=== PATIENT | female | born 1950 | race Caucasian/White ===

== ENCOUNTER 2017-10-27 23:47 | Inpatient (IN) | payer MEDICARE, OTHER ==
[2017-10-28 02:09] LABS: #Eosinphils 0.1 thou/uL (0.0-0.7); #Lymphocytes 1.1 thou/uL (1.20-3.40); #Monocytes 0.9 thou/uL (0.11-0.59); #Neutrophils 7.5 thou/uL (1.40-6.50); %Basophils 0.2 % (0.0-1.0); %Eosinophils 0.7 % (0.0-10.0); %Lymphocytes 11.5 % (21.0-51.0); %Monocytes 9.8 % (0.0-10.0); %Neutrophils 77.8 % (42.0-75.0); Mean Corpuscular HGB CONC 33.9 g/dL (32.0-36.0); Mean Corpuscular Hemoglobin 33.3 pg (27.0-31.0); Mean Corpuscular Volume 98.1 fl (81.0-99.0); Mean Platelet Volume 7.6 fL (7.4-10.4); Platelet Count 174 thou/uL (130-400); RBC Distribution Width 14.1 % (11.5-14.5); Red Blood Cell (RBC) Count 2.69 mill/uL (4.20-5.40); White Blood Cell (WBC) Count 9.6 thou/uL (4.8-10.8)
[2017-10-28 02:17] LABS: PTT 31.1 SEC (22.9-36.1)
[2017-10-28 02:18] LABS: INR-International Normal Ratio 1.1; Prothrombin Time 14.1 SEC (12.0-14.7)
[2017-10-28 02:38] LABS: ALT (SGPT) 11 U/L (8-55); AST (SGOT) 8 U/L (5-34); Albumin 2.8 g/dL (3.4-4.8); Alkaline Phosphatase 150 U/L (40-150); Anion Gap 12 mmol/L (10-20); BUN (Urea Nitrogen) 33 mg/dL (9.8-20.1); Bilirubin, Total 0.5 mg/dL (0.2-1.2); Calc. Creatinine Clearance 0 mL/min (70-130); Calcium 8.4 mg/dL (7.8-10.44); Carbon Dioxide 28 mmol/L (23-31); Chloride 93 mmol/L (98-107); Estimated GFR-MDRD 12; Globulin 2.8 g/dL (2.4-3.5); Glucose 268 mg/dL (80-115); Magnesium 1.7 mg/dL (1.6-2.6); Potassium 3.4 mmol/L (3.5-5.1); Protein, Total 5.6 g/dL (6.0-8.3); Sodium 130 mmol/L (136-145)
[2017-10-28 02:49] LABS: CKMB 1.3 ng/mL (0-6.6); Troponin I 0.156 ng/mL (< 0.028)
[2017-10-28 06:35] VITALS: BMI 31.5
[2017-10-28] MEDS ORDERED: ACETAMINOPHEN WITH CODEINE PO PRN (07:05)
[2017-10-28] MEDS ORDERED: Ondansetron ODT 4 MG TAB PO PRN (07:05)
[2017-10-28] MEDS ORDERED: cloNIDine 0.1 MG TAB PO PRN (07:05)
[2017-10-28] MEDS ORDERED: Dextrose 50% Abboject 50 ML SYRINGE SLOW IVP PRN (07:05)
[2017-10-28] MEDS ORDERED: Dextrose 5% in Water 1,000 ML IV PRN (07:05)
[2017-10-28] MEDS ORDERED: Vancomycin HCl 1 GM in Sodium Chloride 0.9% 250 ML 250 ML IVPB SCH (07:05)
[2017-10-28] MEDS ORDERED: HumaLOG 300 UNITS/3 ML VIAL SC PRN (07:05)
[2017-10-28] MEDS ORDERED: Promethazine 25 MG TAB PO PRN (07:05)
[2017-10-28] MEDS ORDERED: hydrALAZINE 20 MG/ML VIAL SLOW IVP PRN (07:05)
[2017-10-28] MEDS ORDERED: [UNRECOGNIZED DRUG - OTHER] PO PRN (07:05)
[2017-10-28] MEDS ORDERED: Vancomycin HCl 1 GM in Premix Bag 1 BAG IVPB SCH (07:30)
--- NOTE | 2017-10-28 07:44 | HP ---
DATE OF ADMISSION: 10/28/2017 PRIMARY CARE PROVIDER: Babar Marin M.D. CHIEF COMPLAINT: Left leg pain. HISTORY OF PRESENT ILLNESS: This is a 67-year-old female who presents to [facility] from [facility] after complaining of persistent left lower extre mity pain, swelling, and redness to the lower leg and ace region. The patient states that she fell at her home approximately 2 weeks prior to this evaluation, seeking medical attention at [facility]. The patient apparently was evaluated and deemed safe for release back home. The patient states she has been back at home using a rolling walker with some difficulty ambulating o n the left leg due to increased pain. The patient's daughter apparently noted swelling and redness t o the ace region of the left lower extremity over the last 24-48 hours. The patient denied any spec ific documented fever, but did note unexplained chills. The patient denied any recurrent falls, but states her buttocks do feel sore after landing on them from the original fall 2 weeks prior to this e valuation. Patient underwent general evaluation with plain radiographs apparently showing evidence o f fracture of the tibia. The patient also underwent ultrasound evaluation showing no evidence for de ep venous thrombosis. The patient also was noted with some increased shortness of breath and dyspnea and referred to [facility] for IV antibiotic therapy and rule out for pulmona ry embolus with ventilation perfusion scan due to patient's end-stage renal disease on current hemodi alysis. The patient states she has been on dialysis for approximately one year, but apparently lost her AV fistula in the left upper extremity and it is now nonfunctioning. The patient underwent a sherry neled hemodialysis catheter placement approximately a week prior to this evaluation and has been atte nding dialysis in the [place] area Thursday, Thursday, and Thursday. The patient states she has been compliant with her hemodialysis. In the emergency room, patient received Tylenol with codeine and wa s referred to the Hospitalist Service for evaluation. PAST MEDICAL HISTORY: 1. End-stage renal disease with current hemodialysis Thursday, Thursday, Thursday in [place], [place]. 2. Diabetes mellitus type 2, insulin requiring with end-stage renal disease. 3. Status post fall. 4. Left tibia fracture status post fall. 5. Hypertension. 6. Rheumatoid arthritis. 7. Osteoarthritis. 8. Vasculitis. 9. Legal blindness. PAST SURGICAL HISTORY: 1. Status post appendectomy. 2. Status post cervical conization for cervical cancer. 3. Status post left upper extremity AV fistula placement. 4. Status post cardiac catheterization on 01/2017. CURRENT MEDICATIONS: 1. Tylenol #3 300/60 mg 1 tab p.o. q.6 hours p.r.n. pain. 2. Enteric-coated aspirin 81 mg 1 tab p.o. daily. 3. Lipitor 40 mg p.o. at bedtime. 4. Vitamin D2 50,000 units p.o. daily. 5. Question of Lasix 80 mg p.o. daily. 6. Hydralazine 50 mg p.o. b.i.d. 7. Glargine insulin 50 units subcutaneously q.a.m. 8. NovoLog FlexPen p.r.n. 9. Metoprolol tartrate 25 mg p.o. b.i.d. 10. Prednisone 5 mg p.o. t.i.d. ALLERGIES: 1. CANAGLIFLOZIN. 2. CARVEDILOL. 3. IODINE. 4. PENICILLIN. 5. SULFA. FAMILY HISTORY: Positive for diabetes mellitus in both parents. SOCIAL HISTORY: Patient is and resides in [place], [place]. Ambulates with use of a rolling walker. Recent fall 2 weeks prior to this evaluation. Remote history of tobacco use. No alcohol o r illicit drug use. REVIEW OF SYSTEMS: The following complete review of systems was negative, unless otherwise mentioned in the HPI or below: Constitutional: Weight loss or gain, ability to conduct usual activities. Skin: Rash, itching. Eyes: Double vision, pain. ENT/Mouth: Nose bleeding, neck stiffness, pain, tenderness. Cardiovascular: Palpitations, dyspnea on exertion, orthopnea. Respiratory: Shortness of breath, wheezing, cough, hemoptysis, fever or night sweats. Gastrointestinal: Poor appetite, abdominal pain, heartburn, nausea, vomiting, constipation, or diarr hea. Genitourinary: Urgency, frequency, dysuria, nocturia. Musculoskeletal: Pain, swelling. Neurologic/Psychiatric: Anxiety, depression. Allergy/Immunologic: Skin rash, bleeding tendency. Otherwise negative except as stated per HPI. PHYSICAL EXAMINATION: VITAL SIGNS: On admission, blood pressure 166/70, pulse 91, respiratory rate 22, temperature 98 degr ees Fahrenheit, O2 saturation 94% on room air. GENERAL APPEARANCE: This is a 67-year-old female, alert and oriented x3, pleasant, respons babita, in no acute distress. HEENT: Pupils are equal, round, reactive to light and accommodation. Extraocular muscles are intact . No scleral icterus, no conjunctival injection. Nares patent. OP is clear. NECK: Supple, no cervical adenopathy, no thyromegaly, no carotid bruits, no JVD appreciated. Cervic al spine is with full active and passive range of motion. No meningeal signs appreciated. CHEST: Lungs are clear to auscultation bilaterally. CARDIOVASCULAR: S1 and S2 with 2/6 systolic ejection murmur loudest in the right upper sternal borde r. A tunneled hemodialysis catheter in the right internal jugular vein in place. ABDOMEN: Obese, soft, nontender, nondistended. Bowel sounds are positive in all four quadrants. Th ere is no hepatosplenomegaly, no abdominal bruits, no rebound or guarding appreciated. EXTREMITIES: Warm and dry with fair turgor. Pitting edema bilaterally. Left lower extremity with i ncreased erythema, warmth to touch in the midsection of the ace with mild tenderness to palpation. Edema extends to the dorsum of the foot bilaterally, left greater than right. Dry ulcerations noted on left toes. Pulses diminished at the dorsalis pedis, posterior tibial, and popliteal arteries bila terally. Capillary refill less than 2 seconds. NEUROLOGIC: Cranial nerves II-XII are grossly intact. The patient is not observed ambulatory during this exam. PERTINENT LABORATORY DATA AND X-RAY FINDINGS: Sodium 130, potassium 3.4, chloride 93, CO2 of 28, BUN 33, creatinine 3.84, estimated GFR of 12, and glucose 268. Lactic acid level 2.1, calcium 8.4, magn esium 1.7. LFTs within normal limits. Troponin 0.156, albumin 2.8. CBC showed white blood cell cou nt 9.6, hemoglobin 9, hematocrit 26.4, platelet count 174 with 78% neutrophils. EKG dated 10/27/2017 by my interpretation shows sinus mechanism with heart rates in the 90s. Normal R-wave progression n oted in the precordial leads. Normal axis. No acute ST-T wave changes appreciated. Doppler ultraso und of the left lower extremity dated 10/28/2017 showed no evidence for DVT. Portable chest x-ray steven goode 10/28/2017 showed tunneled hemodialysis catheter in the right jugular venous system. Chronic yasmin nges noted in bilateral lung berry. No acute infiltrate identified. ASSESSMENT AND PLAN: 1. Left lower extremity acute cellulitis. The patient will be admitted to the medical floor. We wi ll initiate vancomycin 1 gram x1 dose now with additional Rocephin 2 grams IV q.24 hours. We will co ntinue serial monitoring of left lower extremity. Doppler ultrasound ruled out evidence for deep koki ous thrombosis. 2. Left tibia fracture. We will need to obtain radiographs to confirm the diagnosis. May repeat lo andria films for review. Consult Ortho Service for evaluation. 3. End-stage renal disease with hemodialysis. We will consult Nephrology Service for evaluation and continuation of maintenance hemodialysis during the hospital stay. No current evidence to suggest a cute volume overload with clinical decompensation. Current maintenance hemodialysis Thursday, , and Thursday. 4. Hyponatremia secondary to hyperglycemia. We will continue serial monitoring. Initiate home insu tiara regimen. 5. Hypokalemia. We will continue to monitor clinically. Hold potassium supplementation. 6. Chronic normocytic anemia secondary to chronic kidney disease. Stable currently. We will contin ue to monitor serial hemoglobin trend. No current evidence to suggest acute blood loss. 7. Hypertension. Resume home antihypertensive regimen and monitor clinical response. 8. Diabetes mellitus type 2, insulin requiring. Resume glargine insulin 50 units subcutaneously q.a .m. Insulin sliding scale for reflexive coverage. ADA diet. 9. Status post mechanical fall. Obtain PT/OT evaluation for functional assessment. General fall ri sk precautions. 10. Prophylaxis. Sequential compression devices will be held due to lower extremity edema. Heparin 5000 units subcutaneously t.i.d. for deep venous thrombosis prophylaxis. Pepcid 20 mg p.o. b.i.d. General fall risk precautions. 11. Code status is FULL. Surrogate medical decision maker is patient's spouse.
[2017-10-28] MEDS: Acetaminophen/Codeine 30-300mg Tablet PO PRN ×2 (08:39→18:18)
[2017-10-28] MEDS: Famotidine 20 MG TAB PO SCH ×2 (08:59→20:31)
[2017-10-28] MEDS: Insulin Detemir 100 UNITS/ML 50 UNITS in Pre-Filled Syringe 1 EACH SC SCH (08:59)
[2017-10-28] MEDS: predniSONE 5 MG TAB PO SCH ×2 (08:59→12:39)
[2017-10-28] MEDS: Aspirin 81 mg Enteric Coated Tablet PO SCH (08:59)
[2017-10-28] MEDS: hydrALAZINE 25 MG TAB PO SCH ×2 (08:59→20:30)
[2017-10-28] MEDS ORDERED: Non-Formulary Item 1 EACH (Hydralazine Hcl [Apresoline] 50 MG) PO SCH (09:00)
[2017-10-28] MEDS: Heparin 5,000 UNITS/ML VIAL SC SCH ×3 (09:00→20:30)
[2017-10-28] MEDS ORDERED: Non-Formulary Item 1 EACH (Insulin Glargine,Hum.Rec.Anlog 50 UNIT) SQ SCH (09:00)
--- NOTE | 2017-10-28 09:11 | ULT ---
PRELIMINARY REPORT/[facility]/EMERGENCY AFTER HOURS PROCEDURE: EXAM: US Duplex Left Lower Extremity Veins EXAM DATE/TIME: Exam ordered 10/28/2017 1:11 AM CLINICAL HISTORY: 67 years old, female; Pain and signs and symptoms; Edema, localized and other: Left leg below knee re dness; Lower extremity, left; Leg, lower; Patient HX: Recent fall TECHNIQUE: Real-time ultrasound scan of the veins of the left lower extremity with color Doppler flow, spectral waveform analysis and compression. COMPARISON: No relevant prior studies available. FINDINGS: Deep veins: Unremarkable. No DVT in the visualized common femoral, femoral, proximal deep femoral or popliteal veins. The veins demonstrate normal color flow, are normally compressible, with normal phas ic flow and/or augmentation response. Superficial veins: Unremarkable. No thrombus in the visualized great saphenous vein. Soft tissues: Superficial soft tissue edema. No popliteal cyst. IMPRESSION: No DVT Thank you for allowing us to participate in the care of your patient. Dictated and Authenticated by: Horace Lopez MD 10/28/2017 1:45 AM Central Time ([place] & [place]) FINAL REPORT LEFT LOWER EXTREMITY VENOUS DUPLEX EXAM: HISTORY: Leg swelling. FINDINGS: Real-time color Doppler evaluation left lower extremity is performed from groin to calf. This includ es evaluation of the common femoral, superficial and profunda femoral, saphenous, popliteal, and trif urcation veins. This shows patent deep venous systems with normal compressibility and augmentation. Of incidental note is diffuse edema change in the calf region. IMPRESSION: 1. No evidence of deep vein thrombosis. 2. This report is in agreement with the temporary report issued by [facility]. POS: OFF
--- NOTE | 2017-10-28 09:16 | RAD ---
CHEST ONE VIEW: History: Pain. Comparison: 11-11-15 FINDINGS: New from the comparison examination is a dialysis catheter tip at the inferior SVC. There are patchy opacities in the lingula as well as left lower lobe. Blunting of the left lateral costophrenic sulcus . Mild interstitial edema, pulmonary venous congestion. IMPRESSION: 1. New dialysis catheter tip in good position. 2. Linear and right lower lobe airspace opacity as well as left lower lobe linear airspace opacity ma y reflect atelectasis. 3. Mild volume overload. 4. Small left effusion versus scarring. POS: H
[2017-10-28 09:27] LABS: HBSAB Concentration 0.29 mIU/mL; HBSAg Index 0.13 S/CO (0-0.99); Hep B Core Total Ab Non-Reactive (NonReactive); Hep B Surf AB Non-Reactive (NonReactive); Hep B Surf Ag Non-Reactive S/CO (NonReactive); Hep C IgG Ab Non-Reactive (NonReactive); Hep C Index 0.34 S/CO (0-0.79)
--- NOTE | 2017-10-28 09:52 | RAD ---
TWO VIEW LEFT LEG SERIES: Clinical history: Fall with pain. FINDINGS: There is a mildly displaced obliquely oriented fracture of the distal fibula. Imaged tibia reveals no displaced fracture. There are areas of vascular calcification. Incidental osteoarthritis seen at the knee and ankle joints. IMPRESSION: Mildly displaced distal fibular fracture. Consider dedicated views of the left ankle for further eval uation. POS: [facility]
--- NOTE | 2017-10-28 10:48 | CON ---
DATE OF CONSULTATION: 10/28/2017 REQUESTING PHYSICIAN: Dr. Karlos Waldron. CONSULTING PHYSICIAN: Dr. Rayo Sotelo. REASON FOR CONSULTATION: Left distal fibular Meyers C type fracture. BRIEF CLINICAL HISTORY: Ramila is a 67-year-old white female who was admitted to the Medicine Servic e yesterday for swelling, pain, and left lower extremity with accompanying comorbidities of end-stage renal disease requiring hemodialysis, diabetes type 2, rheumatoid arthritis, osteoarthritis, and vas culitis. Apparently, she fell 12-14 days ago while using her rolling walker and landed on her left leg. She w as seen at [facility]. At that time, evaluated in the emergency room and rele ased to home. She has been receiving her hemodialysis as an outpatient. Plain radiographs obtained by the Medicine Service demonstrated a minimally displaced oblique Meyers C fracture of the left dista l fibula with degenerative changes of the knee consistent with degenerative genu valgum. The patient has been able to stand, walk and bear weight on the leg and current radiographs do not demonstrate s ignificant displacement. She also has a hematoma at the mid tibia. There has been some redness and swelling noted around this and she was started on Rocephin empirically and our service was consulted for evaluation of the swelling, redness and incidental fibular fracture noted on radiographs. PHYSICAL EXAMINATION: Visual inspection of left lower extremity demonstrates patient to be morbidly obese. She also has some skin changes in the mid ace anterior consistent with hematoma. Some bruis ing and ecchymotic changes peripheral to this, but no significant blanchable erythema is noted. Skin changes chronically on the foot consistent with diabetes and hemodialysis history, some atrophic yasmin nges of the skin also appreciated. She has a little bit of fibular tenderness with point palpation. Lateral ankle range of motion is not assessed due to known underlying fracture. Otherwise, she is n eurovascularly intact with good full digital excursion and sensation in the involved extremity. No s ignificant breaks in skin are appreciated in or around the fracture site. IMAGING STUDIES: Two-view left leg (tib-fib) demonstrates an oblique Meyers C fracture of the distal fibula, chronic changes of the knee consistent with genu valgum were also appreciated on AP view. IMPRESSION: 1. Left distal fibular Meyers C minimally to nondisplaced fracture. 2. Degenerative genu valgum, left knee. 3. Left mid ace hematoma, low suspicion for cellulitis. 4. Chronic comorbidities to include diabetes type 2, hemodialysis, hypertension, peripheral vascular disease, rheumatoid arthritis, and vasculitis. PLAN: 1. Nonoperative management recommended for the fibula. 2. Directed films will be obtained today. 3. The patient will be fitted with a 3D walking boot for skin checks and also immobilization of the ankle. 4. She has been ambulating on the leg, but best recommendation would be nonweightbearing as possible . We will consult physical therapy for walker training in a touchdown weightbearing fashion if possi ble. We will reevaluate the patient tomorrow with again directed films after ambulating.
[2017-10-28] MEDS: cefTRIAXone\\ROCEPHIN 2 GM, Admixture Fee 1 EACH in Sodium Chloride 0.9% 100 ML IVPB SCH (11:12)
--- NOTE | 2017-10-28 11:12 | RAD ---
THREE VIEWS LEFT ANKLE: Date: 10-28-17 Comparison: Prior tibia/fibula on 10-28-17. History: Distal fibular fracture. FINDINGS: There is an obliquely oriented distal left fibular fracture. There is no significant displacement. Th ere is no additional fracture or evidence of dislocation. Talar dome appears intact. There is extensive atherosclerotic calcification overlying the imaged ankle and foot. There is calcan eal enthesophyte formation. IMPRESSION: Obliquely oriented distal left fibular fracture with no additional fracture or evidence of dislocatio n. POS: [facility]
--- NOTE | 2017-10-28 12:20 | PDOC.PN ---
- Subjective Encounter Start Date: 10/28/17 Encounter Start Time: 11:00 Subjective: no sob, feels better -: no chest pain or palp - Objective Resuscitation Status: Resuscitation Status FULL:Full Resuscitation MAR Reviewed: Yes Vital Signs & Weight: Vital Signs (12 hours) Temp Pulse Resp BP BP Pulse Ox 10/28/17 08:59 95 179/78 H 10/28/17 08:00 98.7 F 95 20 179/78 H 97 Weight Admit Weight 207 lb 3 oz Weight 207 lb 3 oz Result Diagrams: 10/28/17 02:01 10/28/17 02:01 Phys Exam - Physical Examination HEENT: PERRLA, moist MMs Neck: no JVD, supple Respiratory: no wheezing, no rales Cardiovascular: RRR, no significant murmur Gastrointestinal: soft, non-tender, positive bowel sounds Musculoskeletal: pulses present, edema present left LE erythema and edema++ Neurological: non-focal, moves all 4 limbs Psychiatric: A&O x 3 Dx/Plan (1) Left leg cellulitis Code(s): L03.116 - CELLULITIS OF LEFT LOWER LIMB Status: Acute (2) Fracture, fibula Code(s): S82.409A - UNSP FRACTURE OF SHAFT OF UNSP FIBULA, INIT FOR CLOS FX Status: Acute Qualifiers: Encounter type: subsequent encounter Fibula location: distal Fracture type: closed Laterality: left (3) CAD (coronary artery disease) Code(s): I25.10 - ATHSCL HEART DISEASE OF [place] CORONARY ARTERY W/O ANG PCTRS Status: Chronic Qualifiers: Coronary Disease-Associated Artery/Lesion type: [place] artery [place] vs. transplanted heart: [place] heart Associated angina: without angina Qualified Code(s): I25.10 - Atherosclerotic heart disease of [place] coronary artery without angina pectoris Comment: Medical mgmt, added Statin (4) DM type 2 (diabetes mellitus, type 2) Status: Chronic Qualifiers: Diabetes mellitus complication status: with unspecified complications Diabetes mellitus half-way insulin use: with half-way use Qualified Code(s) : E11.8 - Type 2 diabetes mellitus with unspecified complications; Z79.4 - long term care administrator (current) use of insulin; Z79.4 - custodial (current) use of insulin; Z79.4 - long term care administrator (current) use of insulin; Z79.4 - long term care administrator (current) use of insulin Comment: Resume home Lantus, RENZO (5) ESRD (end stage renal disease) on dialysis Code(s): N18.6 - END STAGE RENAL DISEASE; Z99.2 - DEPENDENCE ON RENAL DIALYSIS Status: Chronic Comment: HD per Renal service (6) H/O rheumatoid arthritis Code(s): Z87.39 - PERSONAL HISTORY OF DISEASES OF THE MS SYS AND CONN TISS Status: Chronic (7) HTN (hypertension) Code(s): I10 - ESSENTIAL (PRIMARY) HYPERTENSION Status: Chronic Qualifiers: Hypertension type: essential hypertension (8) Dyslipidemia Code(s): E78.5 - HYPERLIPIDEMIA, UNSPECIFIED Status: Chronic (9) Obesity (BMI 30.0-34.9) Code(s): E66.9 - OBESITY, UNSPECIFIED Status: Chronic - Plan is on vanc and ceftriaxone -: to wear russel hose to Left LE -: reduce prednisone to daily regimen, will need steroid sparing meds -: dc v/q scan, LE venous doppler is -ve -: for HD today, PT to mobilize pt as tolerated, wtg bearing per ortho advice * . Review of Systems - Medications/Allergies Allergies/Adverse Reactions: Allergies Allergy/AdvReac Type Severity Reaction Status Date / Time canagliflozin [From Invokana] Allergy Verified 10/28/17 06:42 carvedilol Allergy Verified 10/28/17 06:42 Iodine and Iodide Containing Allergy Verified 10/28/17 06:42 Produc Penicillins Allergy Verified 10/28/17 06:42 Sulfa (Sulfonamide Allergy Verified 10/28/17 06:42 Antibiotics) Medications: Current Medications Acetaminophen (Tylenol) 1,000 mg PO Q6H PRN PRN Reason: Headache/Fever or Mild Pain Acetaminophen/Codeine Phosphate (Tylenol #3) 1 tab PO Q6H PRN PRN Reason: Pain Last Admin: 10/28/17 08:39 Dose: 1 tab Aspirin (Ecotrin) 81 mg PO DAILY COUNTS INCLUDE 234 BEDS AT THE [facility] Last Admin: 10/28/17 08:59 Dose: 81 mg Clonidine (Catapres) 0.1 mg PO Q4H PRN PRN Reason: Systolic BP > 180 Dextrose/Water (Dextrose 50%) 25 gm SLOW IVP PRN PRN PRN Reason: Hypoglycemia Famotidine (Pepcid) 20 mg PO BID COUNTS INCLUDE 234 BEDS AT THE [facility] Last Admin: 10/28/17 08:59 Dose: 20 mg Glucagon (Glucagon) 1 mg IM PRN PRN PRN Reason: Hypoglycemia Heparin Sodium (Porcine) (Heparin) 5,000 units SC TID COUNTS INCLUDE 234 BEDS AT THE [facility] Last Admin: 10/28/17 09:00 Dose: 5,000 units Hydralazine HCl (Apresoline) 10 mg SLOW IVP Q4H PRN PRN Reason: Systolic BP > 180 Hydralazine HCl (Apresoline) 50 mg PO BID COUNTS INCLUDE 234 BEDS AT THE [facility] Last Admin: 10/28/17 08:59 Dose: 50 mg Ceftriaxone Sodium 2 gm/Miscellaneous Medication 1 each/ Sodium Chloride 100 mls @ 200 mls/hr IVPB Q24HR COUNTS INCLUDE 234 BEDS AT THE [facility] Last Admin: 10/28/17 11:12 Dose: 100 mls Dextrose/Water (D5w) 1,000 mls @ 0 mls/hr IV .Q0M PRN; As Directed PRN Reason: Hypoglycemia Insulin Detemir 50 units/ (Miscellaneous Medication) 0.5 mls @ 0 mls/hr SC QAM COUNTS INCLUDE 234 BEDS AT THE [facility] Last Admin: 10/28/17 08:59 Dose: 0.5 mls Insulin Human Lispro (Humalog) 0 units SC .MODERATE SLIDING SC PRN PRN Reason: Moderate Correctional Scale Insulin Human Lispro (Humalog) 0 units SC .BEDTIME SLIDING SC PRN PRN Reason: Bedtime Correctional Scale Ondansetron HCl (Zofran Odt) 4 mg PO Q6H PRN PRN Reason: Nausea/Vomiting Ondansetron HCl (Zofran) 4 mg IVP Q6H PRN PRN Reason: Nausea/Vomiting Prednisone (Prednisone) 5 mg PO TID-[facility] Last Admin: 10/28/17 08:59 Dose: 5 mg Promethazine HCl (Phenergan) 25 mg PO Q6H PRN PRN Reason: Nausea Sodium Chloride (Flush - Normal Saline) 10 ml IVF Q12HR COUNTS INCLUDE 234 BEDS AT THE [facility] Last Admin: 10/28/17 09:04 Dose: 10 ml Sodium Chloride (Flush - Normal Saline) 10 ml IVF PRN PRN PRN Reason: Saline Flush
--- NOTE | 2017-10-28 19:00 | CON ---
DATE OF CONSULTATION: 10/28/2017 CONSULTING PHYSICIAN: Dr. Mosquera. REQUESTING PHYSICIAN: Dr. Waldron. REASON FOR CONSULTATION: The need for maintenance hemodialysis. IMPRESSION: 1. End-stage renal disease, hemodialysis dependent, Thursday, Thursday and Thursday schedule. 2. Left lower extremity cellulitis. 3. Hyponatremia with hypokalemia. PLAN: 1. The patient to be dialyzed in accordance with her schedule today with ultrafiltration as tolerate d by hemodynamics. 2. Vancomycin dosing to be coordinated with dialysis, so that the patient will be receiving vancomyc in at dialysis. 3. Further management to be dependent on the clinical course. HISTORY OF PRESENT ILLNESS: History is that of a 67-year-old female patient who presented here with evidence of left lower extremity cellulitis. The patient does have end-stage renal disease. She is hemodialysis dependent on a Thursday, Thursday and Thursday schedule. The need for continued hemodialys is necessitated this consultation. PAST MEDICAL HISTORY: Significant for; 1. End-stage renal disease, hemodialysis dependent 2. Type 2 diabetes. 3. Status post fall. 4. Hypertension. 5. Rheumatoid arthritis. 6. Osteoarthritis. 7. Vasculitis. MEDICATIONS: Reviewed as documented on [employer]. ALLERGIES: To CANAGLIFLOZIN, CARVEDILOL, IODINE, PENICILLIN and SULFA. FAMILY HISTORY: Significant for diabetes. SOCIAL HISTORY: The patient resides in [place]. Remote history of tobacco use. Denies alcohol or illicit drug use. REVIEW OF SYSTEMS: As documented in the body of the history. All the other systems were reviewed an d found not to be significantly related to presenting illness. PHYSICAL EXAMINATION: GENERAL: The patient was noted to be afebrile with a temperature of 99.8, pulse 95, respiratory rate of 16 and O2 sat 97% with a blood pressure of 150/70. HEENT: Unremarkable. Moist oral mucosa. NECK: Supple. No conjunctival injection or icterus. CARDIOVASCULAR SYSTEM: First and second heart sounds were heard. RESPIRATORY SYSTEM: Clear to auscultation. DIGESTIVE SYSTEM: Revealed a benign abdomen. Positive bowel sounds. EXTREMITIES: No peripheral edema. SKIN: No new gross rash. LYMPHATICS: No peripheral lymphadenopathy. SUMMARY: A 67-year-old female patient with end-stage renal disease, hemodialysis dependent, who pres ented here with left lower extremity cellulitis. Thank you for this consultation. We will follow with you.
[2017-10-29] MEDS: Acetaminophen 500 MG TAB PO PRN (05:00)
[2017-10-29 05:03] LABS: Band 3 % (5-11); Eosinophils 1 % (0-10); Hemoglobin 8.7 g/dL (12.0-16.0); Lymphocytes 13 % (21-51); MDiff Complete? YES; Mean Corpuscular HGB CONC 32.6 g/dL (32.0-36.0); Mean Corpuscular Hemoglobin 32.4 pg (27.0-31.0); Mean Corpuscular Volume 99.3 fl (81.0-99.0); Mean Platelet Volume 7.8 fL (7.4-10.4); Monocytes 5 % (0-10); Neutrophil 78 % (42-75); Platelet Count 177 thou/uL (130-400); Red Blood Cell (RBC) Count 2.68 mill/uL (4.20-5.40); White Blood Cell (WBC) Count 7.9 thou/uL (4.8-10.8)
[2017-10-29 05:10] LABS: Anion Gap 11 mmol/L (10-20); BUN (Urea Nitrogen) 19 mg/dL (9.8-20.1); Calc. Creatinine Clearance 29 mL/min (70-130); Calcium 7.9 mg/dL (7.8-10.44); Carbon Dioxide 28 mmol/L (23-31); Chloride 100 mmol/L (98-107); Estimated GFR-MDRD 17; Glucose 130 mg/dL (80-115); Potassium 3.8 mmol/L (3.5-5.1); Sodium 135 mmol/L (136-145)
[2017-10-29] MEDS ORDERED: Ketorolac Tromethamine 30 MG/ML VIAL IVP SCH (06:45)
[2017-10-29] MEDS ORDERED: Vancomycin HCl 1 GM in Premix Bag 1 BAG IVPB SCH (09:00)
[2017-10-29] MEDS ORDERED: Vancomycin HCl 1.25 GM in Sodium Chloride 0.9% 250 ML 250 ML IVPB SCH (09:00)
[2017-10-29] MEDS ORDERED: Vancomycin HCl 750 MG in Sodium Chloride 0.9% 250 ML 250 ML IVPB SCH (09:00)
[2017-10-29] MEDS ORDERED: Vancomycin HCl 500 MG in Sodium Chloride 0.9% 100 ML IVPB SCH ×2 (09:00)
[2017-10-29] MEDS ORDERED: HOLD VANCOMYCIN FOR LEVEL >20 FS SCH (09:00)
[2017-10-29] MEDS: cefTRIAXone\\ROCEPHIN 2 GM, Admixture Fee 1 EACH in Sodium Chloride 0.9% 100 ML IVPB SCH (09:03)
[2017-10-29] MEDS: predniSONE 20 MG TAB PO SCH (09:03)
[2017-10-29] MEDS: Aspirin 81 mg Enteric Coated Tablet PO SCH (09:04)
[2017-10-29] MEDS: hydrALAZINE 25 MG TAB PO SCH ×2 (09:04→20:17)
[2017-10-29] MEDS: Heparin 5,000 UNITS/ML VIAL SC SCH ×3 (09:05→20:19)
[2017-10-29] MEDS: Famotidine 20 MG TAB PO SCH ×2 (09:05→20:18)
[2017-10-29] MEDS: Insulin Detemir 100 UNITS/ML 50 UNITS in Pre-Filled Syringe 1 EACH SC SCH (09:28)
[2017-10-29] MEDS: Acetaminophen/Codeine 30-300mg Tablet PO PRN ×2 (12:08→22:47)
--- NOTE | 2017-10-29 14:30 | PDOC.PN ---
- Subjective Encounter Start Date: 10/29/17 Encounter Start Time: 08:25 Subjective: feels better -: has not amb yet - Objective Resuscitation Status: Resuscitation Status FULL:Full Resuscitation MAR Reviewed: Yes Vital Signs & Weight: Vital Signs (12 hours) Temp Pulse Resp BP BP Pulse Ox 10/29/17 09:04 93 115/56 L 10/29/17 08:00 98.6 F 93 22 H 10/29/17 07:31 98.6 F 93 22 H 115/56 L 95 10/29/17 06:54 99.9 F H 112 H 10/29/17 06:50 100.0 F H 120 H 148/70 H 10/29/17 06:15 101.1 F H 109 H 18 156/75 H 92 L 10/29/17 06:00 100.0 F H 118 H 16 148/72 H 93 L Weight Admit Weight 207 lb 3 oz Weight 207 lb 3 oz I&O: 10/28/17 10/29/17 10/30/17 06:59 06:59 06:59 Intake Total 200 Balance 200 Result Diagrams: 10/29/17 04:29 10/29/17 04:29 Additional Labs: Accuchecks 10/29/17 10/29/17 10/28/17 11:20 04:33 21:43 POC Glucose 157 H 142 H 218 H 10/28/17 18:16 POC Glucose 169 H Phys Exam - Physical Examination HEENT: PERRLA, moist MMs Neck: no JVD, supple Respiratory: no wheezing, no rales Cardiovascular: RRR, no significant murmur Gastrointestinal: soft, non-tender, positive bowel sounds Musculoskeletal: pulses present, edema present erythema is receding left leg Neurological: non-focal, moves all 4 limbs Psychiatric: A&O x 3 Dx/Plan (1) Left leg cellulitis Code(s): L03.116 - CELLULITIS OF LEFT LOWER LIMB Status: Acute (2) Fracture, fibula Code(s): S82.409A - UNSP FRACTURE OF SHAFT OF UNSP FIBULA, INIT FOR CLOS FX Status: Acute Qualifiers: Encounter type: subsequent encounter Fibula location: distal Fracture type: closed Laterality: left (3) CAD (coronary artery disease) Code(s): I25.10 - ATHSCL HEART DISEASE OF [place] CORONARY ARTERY W/O ANG PCTRS Status: Chronic Qualifiers: Coronary Disease-Associated Artery/Lesion type: [place] artery [place] vs. transplanted heart: [place] heart Associated angina: without angina Qualified Code(s): I25.10 - Atherosclerotic heart disease of [place] coronary artery without angina pectoris (4) DM type 2 (diabetes mellitus, type 2) Status: Chronic Qualifiers: Diabetes mellitus complication status: with unspecified complications Diabetes mellitus termite control servicer insulin use: with termite control servicer use Qualified Code(s) : E11.8 - Type 2 diabetes mellitus with unspecified complications; Z79.4 - parts counterman (current) use of insulin; Z79.4 - custodial (current) use of insulin; Z79.4 - parts counterman (current) use of insulin; Z79.4 - parts counterman (current) use of insulin Comment: Resume home RENZO Gill (5) ESRD (end stage renal disease) on dialysis Code(s): N18.6 - END STAGE RENAL DISEASE; Z99.2 - DEPENDENCE ON RENAL DIALYSIS Status: Chronic Comment: HD per Renal service (6) H/O rheumatoid arthritis Code(s): Z87.39 - PERSONAL HISTORY OF DISEASES OF THE MS SYS AND CONN TISS Status: Chronic (7) HTN (hypertension) Code(s): I10 - ESSENTIAL (PRIMARY) HYPERTENSION Status: Chronic Qualifiers: Hypertension type: essential hypertension (8) Dyslipidemia Code(s): E78.5 - HYPERLIPIDEMIA, UNSPECIFIED Status: Chronic (9) Obesity (BMI 30.0-34.9) Code(s): E66.9 - OBESITY, UNSPECIFIED Status: Chronic - Plan is on ceftriaxone and vanc -: tmax of 101 -: watch for h/h its 04/25 this am -: HD per nephro advice -: mobilize per russel curry * . Review of Systems - Medications/Allergies Allergies/Adverse Reactions: Allergies Allergy/AdvReac Type Severity Reaction Status Date / Time canagliflozin [From Invokana] Allergy Verified 10/28/17 06:42 carvedilol Allergy Verified 10/28/17 06:42 Iodine and Iodide Containing Allergy Verified 10/28/17 06:42 Produc Penicillins Allergy Verified 10/28/17 06:42 Sulfa (Sulfonamide Allergy Verified 10/28/17 06:42 Antibiotics) Medications: Current Medications Acetaminophen (Tylenol) 1,000 mg PO Q6H PRN PRN Reason: Headache/Fever or Mild Pain Last Admin: 10/29/17 05:00 Dose: 1,000 mg Acetaminophen/Codeine Phosphate (Tylenol #3) 1 tab PO Q6H PRN PRN Reason: Pain Last Admin: 10/29/17 12:08 Dose: 1 tab Aspirin (Ecotrin) 81 mg PO DAILY [facility] Last Admin: 10/29/17 09:04 Dose: 81 mg Clonidine (Catapres) 0.1 mg PO Q4H PRN PRN Reason: Systolic BP > 180 Dextrose/Water (Dextrose 50%) 25 gm SLOW IVP PRN PRN PRN Reason: Hypoglycemia Famotidine (Pepcid) 20 mg PO BID [facility] Last Admin: 10/29/17 09:05 Dose: 20 mg Glucagon (Glucagon) 1 mg IM PRN PRN PRN Reason: Hypoglycemia Heparin Sodium (Porcine) (Heparin) 5,000 units SC TID [facility] Last Admin: 10/29/17 09:05 Dose: 5,000 units Hydralazine HCl (Apresoline) 10 mg SLOW IVP Q4H PRN PRN Reason: Systolic BP > 180 Hydralazine HCl (Apresoline) 50 mg PO BID [facility] Last Admin: 10/29/17 09:04 Dose: 50 mg Ceftriaxone Sodium 2 gm/Miscellaneous Medication 1 each/ Sodium Chloride 100 mls @ 200 mls/hr IVPB Q24HR [facility] Last Admin: 10/29/17 09:03 Dose: 100 mls Dextrose/Water (D5w) 1,000 mls @ 0 mls/hr IV .Q0M PRN; As Directed PRN Reason: Hypoglycemia Insulin Detemir 50 units/ (Miscellaneous Medication) 0.5 mls @ 0 mls/hr SC QAM [facility] Last Admin: 10/29/17 09:28 Dose: 0.5 mls Vancomycin HCl 1.25 gm/ Sodium (Chloride) 250 mls @ 166.667 mls/hr IVPB WILLCALL [facility] Vancomycin HCl 1 gm/ Device 200 mls @ 200 [facility]ls[facility] Vancom[facility] HCl 750 mg/ Sodium (Chloride) 250 mls @ 250 mls/hr [facility] Vancomycin HCl 500 mg/ Sodium (Chloride) 100 mls @ 100 mls/hr [facility] Insulin Human Lispro (Humalog) 0 units SC .MODERATE SLIDING SC PRN PRN Reason: Moderate Correctional Scale Insulin Human Lispro (Humalog) 0 units SC .BEDTIME SLIDING SC PRN PRN Reason: Bedtime Correctional Scale Miscellaneous Medication (Pharmacy To Dose) 1 each IVPB PRN PRN PRN Reason: Pharmacy to dose Hold Vancomycin For (Level >20) 0 each FS .AT DIALYSIS [facility] Ondansetron HCl (Zofran Odt) 4 mg PO Q6H PRN PRN Reason: Nausea/Vomiting Ondansetron HCl (Zofran) 4 mg IVP Q6H PRN PRN Reason: Nausea/Vomiting Prednisone (Prednisone) 10 mg PO QAM[facility] Last Admin: 10/29/17 09:03 Dose: 10 mg Promethazine HCl (Phenergan) 25 mg PO Q6H PRN PRN Reason: Nausea Sodium Chloride (Flush - Normal Saline) 10 ml IVF Q12HR [facility] Last Admin: 10/29/17 09:05 Dose: 10 ml Sodium Chloride (Flush - Normal Saline) 10 ml IVF PRN PRN PRN Reason: Saline Flush
[2017-10-29] MEDS: HumaLOG 300 UNITS/3 ML VIAL SC PRN (16:54)
--- NOTE | 2017-10-29 22:29 | PRG ---
DATE OF SERVICE: 10/29/2017 SUBJECTIVE: The patient was seen and examined with no new complaint and noted with the following vit al signs. PHYSICAL EXAMINATION: VITAL SIGNS: Afebrile with temperature 97.9, pulse 81, respiratory rate of 18, O2 sat of 94% with bl ood pressure 170/79. HEENT: Unremarkable with moist oral mucosa. Neck was supple. No conjunctival injection or icterus. CARDIOVASCULAR SYSTEM: First and second heart sounds were heard. RESPIRATORY SYSTEM: Clear to auscultation. DIGESTIVE SYSTEM: Revealed a benign abdomen with positive bowel sounds. EXTREMITIES: No peripheral edema. SKIN: No new gross rash. LYMPHATICS: No peripheral lymphadenopathy. LABORATORY INVESTIGATION: Showed hemoglobin of 8.7. Chemistry unremarkable except creatinine of 2.7 9. IMPRESSION: 1. End-stage renal disease, on hemodialysis. 2. Anemia, likely anemia of chronic kidney disease. PLAN: 1. The patient to continue with current regimen of hemodialysis. 2. The patient to be initiated on erythropoiesis stimulating agent. 3. Further management to be dependent on the clinical course.
[2017-10-30] MEDS: Ondansetron HCl/PF 4 MG/2 ML Vial IVP PRN ×2 (02:14→07:34)
[2017-10-30] MEDS: NIFEdipine XL 30 MG TAB PO SCH (08:59)
[2017-10-30] MEDS: Famotidine 20 MG TAB PO SCH ×2 (09:00→20:06)
[2017-10-30] MEDS: Metoprolol Tartrate 25 MG TAB PO SCH ×2 (09:00→20:06)
[2017-10-30] MEDS: predniSONE 20 MG TAB PO SCH (09:00)
[2017-10-30] MEDS: hydrALAZINE 25 MG TAB PO SCH ×2 (09:00→20:07)
[2017-10-30] MEDS: Aspirin 81 mg Enteric Coated Tablet PO SCH (09:00)
[2017-10-30] MEDS: Insulin Detemir 100 UNITS/ML 50 UNITS in Pre-Filled Syringe 1 EACH SC SCH (09:01)
[2017-10-30] MEDS: Heparin 5,000 UNITS/ML VIAL SC SCH ×3 (09:01→20:09)
[2017-10-30] MEDS: cefTRIAXone\\ROCEPHIN 2 GM, Admixture Fee 1 EACH in Sodium Chloride 0.9% 100 ML IVPB SCH (09:20)
[2017-10-30] MEDS ORDERED: Heparin 1,000 UNITS/ML VIAL ONE (11:11)
[2017-10-30] MEDS: Epoetin (ESRD) 20,000 UNITS/ML IVP SCH (12:58)
--- NOTE | 2017-10-30 13:53 | PDOC.PN ---
- Subjective Encounter Start Date: 10/30/17 Encounter Start Time: 11:00 Subjective: c/o left ace area pain -: no sob, overall feels better - Objective Resuscitation Status: Resuscitation Status FULL:Full Resuscitation MAR Reviewed: Yes Vital Signs & Weight: Vital Signs (12 hours) Temp Pulse Resp BP BP Pulse Ox 10/30/17 12:00 97.8 F 80 20 146/61 H 96 10/30/17 09:00 76 174/77 H 10/30/17 08:59 76 174/77 H 10/30/17 07:45 98.0 F 76 18 10/30/17 07:35 98.0 F 76 18 174/77 H 94 L 10/30/17 04:00 97.7 F 81 18 153/71 H 97 10/30/17 02:39 76 189/75 H Weight Admit Weight 207 lb 3 oz Weight 207 lb 3 oz I&O: 10/29/17 10/30/17 10/31/17 06:59 06:59 06:59 Intake Total 200 410 Balance 200 410 Result Diagrams: 10/29/17 04:29 10/29/17 04:29 Additional Labs: Accuchecks 10/30/17 10/30/17 10/30/17 11:22 04:13 02:27 POC Glucose 104 115 H 111 H 10/29/17 10/29/17 19:33 15:57 POC Glucose 167 H 200 H Phys Exam - Physical Examination HEENT: PERRLA, moist MMs Neck: no JVD, supple Respiratory: no wheezing, no rales Cardiovascular: RRR, no significant murmur Gastrointestinal: soft, non-tender, positive bowel sounds Musculoskeletal: pulses present, edema present erythema+ over left leg, small area of fluctuation ?hematoma Neurological: non-focal, moves all 4 limbs Dx/Plan (1) Left leg cellulitis Code(s): L03.116 - CELLULITIS OF LEFT LOWER LIMB Status: Acute (2) Fracture, fibula Code(s): S82.409A - UNSP FRACTURE OF SHAFT OF UNSP FIBULA, INIT FOR CLOS FX Status: Acute Qualifiers: Encounter type: subsequent encounter Fibula location: distal Fracture type: closed Laterality: left (3) CAD (coronary artery disease) Code(s): I25.10 - ATHSCL HEART DISEASE OF [place] CORONARY ARTERY W/O ANG PCTRS Status: Chronic Qualifiers: Coronary Disease-Associated Artery/Lesion type: [place] artery [place] vs. transplanted heart: [place] heart Associated angina: without angina Qualified Code(s): I25.10 - Atherosclerotic heart disease of [place] coronary artery without angina pectoris (4) DM type 2 (diabetes mellitus, type 2) Status: Chronic Qualifiers: Diabetes mellitus complication status: with unspecified complications Diabetes mellitus mcfp insulin use: with medical terminologist use Qualified Code(s) : E11.8 - Type 2 diabetes mellitus with unspecified complications; Z79.4 - MCFP (current) use of insulin; Z79.4 - terminologist (current) use of insulin; Z79.4 - terminologist (current) use of insulin; Z79.4 - MCFP (current) use of insulin Comment: Resume home RENZO Gill (5) ESRD (end stage renal disease) on dialysis Code(s): N18.6 - END STAGE RENAL DISEASE; Z99.2 - DEPENDENCE ON RENAL DIALYSIS Status: Chronic Comment: HD per Renal service (6) H/O rheumatoid arthritis Code(s): Z87.39 - PERSONAL HISTORY OF DISEASES OF THE MS SYS AND CONN TISS Status: Chronic (7) HTN (hypertension) Code(s): I10 - ESSENTIAL (PRIMARY) HYPERTENSION Status: Chronic Qualifiers: Hypertension type: essential hypertension (8) Dyslipidemia Code(s): E78.5 - HYPERLIPIDEMIA, UNSPECIFIED Status: Chronic (9) Obesity (BMI 30.0-34.9) Code(s): E66.9 - OBESITY, UNSPECIFIED Status: Chronic - Plan is on vanc and ceftriaxone -: no fever last 24hrs -: add lopressor and procardia home dose -: mobilize per ortho advice with boot -: dc plan when erythema recedes a bit * . Review of Systems - Medications/Allergies Allergies/Adverse Reactions: Allergies Allergy/AdvReac Type Severity Reaction Status Date / Time canagliflozin [From Invokana] Allergy Verified 10/28/17 06:42 carvedilol Allergy Verified 10/28/17 06:42 Iodine and Iodide Containing Allergy Verified 10/28/17 06:42 Produc Penicillins Allergy Verified 10/28/17 06:42 Sulfa (Sulfonamide Allergy Verified 10/28/17 06:42 Antibiotics) Medications: Current Medications Acetaminophen (Tylenol) 1,000 mg PO Q6H PRN PRN Reason: Headache/Fever or Mild Pain Last Admin: 10/29/17 05:00 Dose: 1,000 mg Acetaminophen/Codeine Phosphate (Tylenol #3) 1 tab PO Q6H PRN PRN Reason: Pain Last Admin: 10/29/17 22:47 Dose: 1 tab Aspirin (Ecotrin) 81 mg PO DAILY [facility] Last Admin: 10/30/17 09:00 Dose: 81 mg Clonidine (Catapres) 0.1 mg PO Q4H PRN PRN Reason: Systolic BP > 180 Dextrose/Water (Dextrose 50%) 25 gm SLOW IVP PRN PRN PRN Reason: Hypoglycemia Epoetin Deep (Procrit) 5,000 units IVP MoWeFr@0900 [facility] Last Admin: 10/30/17 12:58 Dose: 5,000 units Famotidine (Pepcid) 20 mg PO BID [facility] Last Admin: 10/30/17 09:00 Dose: 20 mg Glucagon (Glucagon) 1 mg IM PRN PRN PRN Reason: Hypoglycemia Heparin Sodium (Porcine) (Heparin) 5,000 units SC TID [facility] Last Admin: 10/30/17 09:01 Dose: Not Given Hydralazine HCl (Apresoline) 10 mg SLOW IVP Q4H PRN PRN Reason: Systolic BP > 180 Last Admin: 10/30/17 02:39 Dose: 10 mg Hydralazine HCl (Apresoline) 50 mg PO BID [facility] Last Admin: 10/30/17 09:00 Dose: 50 mg Ceftriaxone Sodium 2 gm/Miscellaneous Medication 1 each/ Sodium Chloride 100 mls @ 200 mls/hr IVPB Q24HR [facility] Last Admin: 10/30/17 09:20 Dose: 100 mls Dextrose/Water (D5w) 1,000 mls @ 0 mls/hr IV .Q0M PRN; As Directed PRN Reason: Hypoglycemia Insulin Detemir 50 units/ (Miscellaneous Medication) 0.5 mls @ 0 mls/hr SC QAM [facility] Last Admin: 10/30/17 09:01 Dose: 0.5 mls Vancomycin HCl 1.25 gm/ Sodium (Chloride) 250 mls @ 166.667 mls/hr IVPB [facility] Vancomycin HCl 1 gm/ Device 200 mls @ 200 mls/hr IVPB [facility] Vancomycin HCl 750 mg/ Sodium (Chloride) 250 mls @ 250 mls/hr IVPB [facility] Vancomycin HCl 500 mg/ Sodium (Chloride) 100 mls @ 100 mls/hr IVPB [facility] Insulin Human Lispro (Humalog) 0 units SC .MODERATE SLIDING SC PRN PRN Reason: Moderate Correctional Scale Last Admin: 10/29/17 16:54 Dose: 2 unit Insulin Human Lispro (Humalog) 0 units SC .BEDTIME SLIDING SC PRN PRN Reason: Bedtime Correctional Scale Metoprolol Tartrate (Lopressor) 25 mg PO BID [facility] Last Admin: 10/30/17 09:00 Dose: 25 mg Miscellaneous Medication (Pharmacy To Dose) 1 each IVPB PRN PRN PRN Reason: Pharmacy to dose Nifedipine (Procardia Xl) 30 mg PO DAILY [facility] Last Admin: 10/30/17 08:59 Dose: 30 mg Hold Vancomycin For (Level >20) 0 each FS .AT DIALYSIS [facility] Ondansetron HCl (Zofran Odt) 4 mg PO Q6H PRN PRN Reason: Nausea/Vomiting Ondansetron HCl (Zofran) 4 mg IVP Q6H PRN PRN Reason: Nausea/Vomiting Last Admin: 10/30/17 07:34 Dose: 4 mg Prednisone (Prednisone) 10 mg PO QAM-[facility] Last Admin: 10/30/17 09:00 Dose: 10 mg Promethazine HCl (Phenergan) 25 mg PO Q6H PRN PRN Reason: Nausea Sodium Chloride (Flush - Normal Saline) 10 ml IVF Q12HR [facility] Last Admin: 10/30/17 09:20 Dose: 10 ml Sodium Chloride (Flush - Normal Saline) 10 ml IVF PRN PRN PRN Reason: Saline Flush
--- NOTE | 2017-10-30 22:35 | PRG ---
DATE OF SERVICE: 10/30/2017 SUBJECTIVE: Patient seen and examined on dialysis, doing very well, noted with the following vital s igns. OBJECTIVE: VITAL SIGNS: Afebrile with temperature 97.8, pulse 80, respiratory rate of 20, O2 sat 96% with blood pressure 146/61. HEENT: Unremarkable with moist oral mucosa. NECK: Supple, no conjunctival injection or icterus. CARDIOVASCULAR SYSTEM: First and second heart sounds were heard. RESPIRATORY SYSTEM: Clear to auscultation. DIGESTIVE SYSTEM: Revealed a benign abdomen. EXTREMITIES: No peripheral edema. SKIN: No new gross rash. LYMPHATICS: No peripheral lymphadenopathy. IMPRESSION: 1. End-stage renal disease, hemodialysis dependent. 2. Cellulitis. PLAN: 1. Patient to continue with hemodialysis as per her schedule with ultrafiltration as tolerated by he modynamics. 2. Further management to be dependent on the clinical course.
[2017-10-31] MEDS: Metoprolol Tartrate 25 MG TAB PO SCH ×2 (08:56→20:30)
[2017-10-31] MEDS: predniSONE 20 MG TAB PO SCH (08:57)
[2017-10-31] MEDS: NIFEdipine XL 30 MG TAB PO SCH (08:59)
[2017-10-31] MEDS: Famotidine 20 MG TAB PO SCH ×2 (08:59→20:29)
[2017-10-31] MEDS: hydrALAZINE 25 MG TAB PO SCH ×2 (09:00→20:29)
[2017-10-31] MEDS: Heparin 5,000 UNITS/ML VIAL SC SCH ×3 (09:01→20:31)
[2017-10-31] MEDS: Aspirin 81 mg Enteric Coated Tablet PO SCH (09:02)
[2017-10-31] MEDS: Insulin Detemir 100 UNITS/ML 50 UNITS in Pre-Filled Syringe 1 EACH SC SCH (09:11)
[2017-10-31] MEDS: Acetaminophen 500 MG TAB PO PRN (09:21)
[2017-10-31] MEDS: cefTRIAXone\\ROCEPHIN 2 GM, Admixture Fee 1 EACH in Sodium Chloride 0.9% 100 ML IVPB SCH (10:25)
[2017-10-31] MEDS: HumaLOG 300 UNITS/3 ML VIAL SC PRN ×2 (12:30→18:18)
--- NOTE | 2017-10-31 15:07 | PDOC.PN ---
- Subjective Encounter Start Date: 10/31/17 Encounter Start Time: 15:05 Subjective: feels better. legally blind so can't tell if leg redness better or not -: no fever/chills - Objective Resuscitation Status: Resuscitation Status FULL:Full Resuscitation MAR Reviewed: Yes Vital Signs & Weight: Vital Signs (12 hours) Temp Pulse Resp BP BP Pulse Ox 10/31/17 09:00 85 146/71 H 10/31/17 08:59 85 146/71 H 10/31/17 08:00 98.5 F 85 18 92 L 10/31/17 07:38 98.5 F 85 18 146/71 H 92 L Weight Admit Weight 207 lb 3 oz Weight 207 lb 3 oz I&O: 10/30/17 10/31/17 11/01/17 06:59 06:59 06:59 Intake Total 410 120 Output Total 1600 Balance 410 -1480 Result Diagrams: 10/29/17 04:29 10/29/17 04:29 Additional Labs: Accuchecks 10/31/17 10/31/17 10/30/17 12:14 03:48 19:33 POC Glucose 187 H 95 104 Laboratory Tests 10/28/17 01:57 Hep Bs Antigen Non-Reactive Hep Bs Antibody Non-Reactive Hep Bs Antibody Index 0.29 Hep B Core Total Ab Non-Reactive Hepatitis C Antibody Non-Reactive Phys Exam - Physical Examination Constitutional: NAD HEENT: PERRLA, moist MMs, sclera anicteric, oral pharynx no lesions Neck: no nodes, no JVD, supple, full ROM Respiratory: no wheezing, no rales, no rhonchi, clear to auscultation bilateral Cardiovascular: RRR, no significant murmur Gastrointestinal: soft, non-tender, no distention, positive bowel sounds Musculoskeletal: no edema, pulses present Left ace swelling.mild erythema Neurological: non-focal, normal sensation, moves all 4 limbs Psychiatric: normal affect, A&O x 3 Skin: no rash Dx/Plan (1) Left leg cellulitis Code(s): L03.116 - CELLULITIS OF LEFT LOWER LIMB Status: Acute (2) Fracture, fibula Code(s): S82.409A - UNSP FRACTURE OF SHAFT OF UNSP FIBULA, INIT FOR CLOS FX Status: Acute Qualifiers: Encounter type: subsequent encounter Fibula location: distal Fracture type: closed Laterality: left Comment: Ortho following (3) Dyslipidemia Code(s): E78.5 - HYPERLIPIDEMIA, UNSPECIFIED Status: Chronic (4) Obesity (BMI 30.0-34.9) Code(s): E66.9 - OBESITY, UNSPECIFIED Status: Chronic (5) ESRD (end stage renal disease) Code(s): N18.6 - END STAGE RENAL DISEASE Status: Acute (6) CAD (coronary artery disease) Code(s): I25.10 - ATHSCL HEART DISEASE OF [place] CORONARY ARTERY W/O ANG PCTRS Status: Chronic Qualifiers: Coronary Disease-Associated Artery/Lesion type: [place] artery [place] vs. transplanted heart: [place] heart Associated angina: without angina Qualified Code(s): I25.10 - Atherosclerotic heart disease of [place] coronary artery without angina pectoris (7) DM type 2 (diabetes mellitus, type 2) Status: Chronic Qualifiers: Diabetes mellitus complication status: with unspecified complications Diabetes mellitus assisted insulin use: with assisted use Qualified Code(s) : E11.8 - Type 2 diabetes mellitus with unspecified complications; Z79.4 - [facility] (current) use of insulin; Z79.4 - office executive (current) use of insulin; Z79.4 - [facility] (current) use of insulin; Z79.4 - office executive (current) use of insulin Comment: Resume home RENZO Gill (8) H/O rheumatoid arthritis Code(s): Z87.39 - PERSONAL HISTORY OF DISEASES OF THE MS SYS AND CONN TISS Status: Chronic (9) H/O vasculitis Code(s): Z86.79 - PERSONAL HISTORY OF OTHER DISEASES OF THE CIRCULATORY SYSTEM Status: Chronic (10) HTN (hypertension) Code(s): I10 - ESSENTIAL (PRIMARY) HYPERTENSION Status: Chronic Qualifiers: Hypertension type: essential hypertension Qualified Code(s): I10 - Essential (primary) hypertension (11) Chronic anemia Code(s): D64.9 - ANEMIA, UNSPECIFIED Status: Chronic - Plan continue antibiotics, PT/OT, out of bed/ambulate, DVT proph w/SCDs cont empiric ABx.clinically better. -: pt wanting HH.will arrange.jaspal TENORIO tomorrow if feels better -: HD per nephrology .daily renal labs -: home meds as below. OT.PT. -: hemodynamically stable.OP f/u w ortho * .check Iron indices ,B12/FA levels Review of Systems - Review of Systems Constitutional: weakness. negative: fever, chills, sweats, malaise, other ENT: negative: Ear Pain, Ear Discharge, Nose Pain, Nose Discharge, Nose Congestion, Mouth Pain, Mouth Swelling, Throat Pain, Throat Swelling, Other Respiratory: negative: Cough, Dry, Shortness of Breath, Hemoptysis, SOB with Excertion, Pleuritic Pain, Sputum, Wheezing Cardiovascular: negative: chest pain, palpitations, orthopnea, paroxysmal nocturnal dyspnea, edema, light headedness, other Gastrointestinal: negative: Nausea, Vomiting, Abdominal Pain, Diarrhea, Constipation, Melena, Hematochezia, Other Genitourinary: negative: Dysuria, Frequency, Incontinence, Hematuria, Retention , Other Musculoskeletal: negative: Neck Pain, Shoulder Pain, Arm Pain, Back Pain, Hand Pain, Leg Pain, Foot Pain, Other Neurological: negative: Weakness, Numbness, Incoordination, Change in Speech, Confusion, Seizures, Other - Medications/Allergies Allergies/Adverse Reactions: Allergies Allergy/AdvReac Type Severity Reaction Status Date / Time canagliflozin [From Invokana] Allergy Verified 10/28/17 06:42 carvedilol Allergy Verified 10/28/17 06:42 Iodine and Iodide Containing Allergy Verified 10/28/17 06:42 Produc Penicillins Allergy Verified 10/28/17 06:42 Sulfa (Sulfonamide Allergy Verified 10/28/17 06:42 Antibiotics) Medications: Current Medications Acetaminophen (Tylenol) 1,000 mg PO Q6H PRN PRN Reason: Headache/Fever or Mild Pain Last Admin: 10/31/17 09:21 Dose: 1,000 mg Acetaminophen/Codeine Phosphate (Tylenol #3) 1 tab PO Q6H PRN PRN Reason: Pain Last Admin: 10/29/17 22:47 Dose: 1 tab Aspirin (Ecotrin) 81 mg PO DAILY [facility] Last Admin: 10/31/17 09:02 Dose: 81 mg Clonidine (Catapres) 0.1 mg PO Q4H PRN PRN Reason: Systolic BP > 180 Dextrose/Water (Dextrose 50%) 25 gm SLOW IVP PRN PRN PRN Reason: Hypoglycemia Epoetin Deep (Procrit) 5,000 units IVP MoWeFr@0900 [facility] Last Admin: 10/30/17 12:58 Dose: 5,000 units Famotidine (Pepcid) 20 mg PO BID [facility] Last Admin: 10/31/17 08:59 Dose: 20 mg Glucagon (Glucagon) 1 mg IM PRN PRN PRN Reason: Hypoglycemia Heparin Sodium (Porcine) (Heparin) 5,000 units SC TID [facility] Last Admin: 10/31/17 14:58 Dose: 5,000 units Hydralazine HCl (Apresoline) 10 mg SLOW IVP Q4H PRN PRN Reason: Systolic BP > 180 Last Admin: 10/30/17 02:39 Dose: 10 mg Hydralazine HCl (Apresoline) 50 mg PO BID [facility] Last Admin: 10/31/17 09:00 Dose: 50 mg Ceftriaxone Sodium 2 gm/Miscellaneous Medication 1 each/ Sodium Chloride 100 mls @ 200 mls/hr IVPB Q24HR [facility] Last Admin: 10/31/17 10:25 Dose: 100 mls Dextrose/Water (D5w) 1,000 mls @ 0 mls/hr IV .Q0M PRN; As Directed PRN Reason: Hypoglycemia Insulin Detemir 50 units/ (Miscellaneous Medication) 0.5 mls @ 0 mls/hr SC QAM [facility] Last Admin: 10/31/17 09:11 Dose: 0.5 mls Vancomycin HCl 1.25 gm/ Sodium (Chloride) 250 mls @ 166.667 mls/hr [facility] Vancomycin HCl 1 gm/ Device 200 mls @ 200 mls/hr IVPB [facility] Vancomycin HCl 750 mg/ Sodium (Chloride) 250 mls @ 250 mls/hr IVPB [facility] Vancomycin HCl 500 mg/ Sodium (Chloride) 100 mls @ 100 mls/hr IVPB [facility] Last Admin: 10/30/17 16:51 Dose: 100 mls Insulin Human Lispro (Humalog) 0 units SC .MODERATE SLIDING SC PRN PRN Reason: Moderate Correctional Scale Last Admin: 10/31/17 12:30 Dose: 2 unit Insulin Human Lispro (Humalog) 0 units SC .BEDTIME SLIDING SC PRN PRN Reason: Bedtime Correctional Scale Metoprolol Tartrate (Lopressor) 25 mg PO BID [facility] Last Admin: 10/31/17 08:56 Dose: 25 mg Miscellaneous Medication (Pharmacy To Dose) 1 each IVPB PRN PRN PRN Reason: Pharmacy to dose Nifedipine (Procardia Xl) 30 mg PO DAILY [facility] Last Admin: 10/31/17 08:59 Dose: 30 mg Hold Vancomycin For (Level >20) 0 each FS .AT DIALYSIS [facility] Ondansetron HCl (Zofran Odt) 4 mg PO Q6H PRN PRN Reason: Nausea/Vomiting Ondansetron HCl (Zofran) 4 mg IVP Q6H PRN PRN Reason: Nausea/Vomiting Last Admin: 10/30/17 07:34 Dose: 4 mg Prednisone (Prednisone) 10 mg PO QAM-[facility] Last Admin: 10/31/17 08:57 Dose: 10 mg Promethazine HCl (Phenergan) 25 mg PO Q6H PRN PRN Reason: Nausea Sodium Chloride (Flush - Normal Saline) 10 ml IVF Q12HR [facility] Last Admin: 10/31/17 09:03 Dose: 10 ml Sodium Chloride (Flush - Normal Saline) 10 ml IVF PRN PRN PRN Reason: Saline Flush
--- NOTE | 2017-10-31 15:45 | EKG ---
Test Reason : Blood Pressure : / mmHG Vent. Rate : 078 BPM Atrial Rate : 078 BPM P-R Int : 182 ms QRS Dur : 086 ms QT Int : 388 ms P-R-T Axes : 119 141 126 degrees QTc Int : 442 ms Normal sinus rhythm Right axis deviation Abnormal ECG Confirmed by VIDA TORRES D.O. ([id number]), production editor CIRA BARRIENTOS ([id number]) on 10/31/2017 3:45:18 PM Referred By: Confirmed By:VIDA TORRES D.O.
[2017-10-31 17:22] LABS: Iron 59 ug/dL (50-170); Iron Binding Capacity, Total 155 mcg/dL (265-497)
[2017-10-31] MEDS: Acetaminophen/Codeine 30-300mg Tablet PO PRN (18:15)
--- NOTE | 2017-10-31 21:22 | PRG ---
DATE OF SERVICE: 10/31/2017 SUBJECTIVE: The patient was seen and examined with no new complaints, feeling much better. PHYSICAL EXAMINATION: VITAL SIGNS: Afebrile with temperature 98.5, pulse 85, respiratory rate 18, blood pressure 146/71, O 2 sat 92%. HEENT: Unremarkable. CARDIOVASCULAR: First and second heart sounds were heard. RESPIRATORY: Clear to auscultation. DIGESTIVE: Revealed a benign abdomen, positive bowel sounds. EXTREMITIES: No peripheral edema. SKIN: No new gross rash. LYMPHATICS: No peripheral lymphadenopathy. EXTREMITIES: Show some redness. IMPRESSION: 1. End-stage renal disease on hemodialysis. 2. Left lower extremity cellulitis. PLAN: 1. We will continue with her current schedule of hemodialysis on this patient with ultrafiltration a s tolerated by hemodynamics. 2. Further management to be dependent on the clinical course.
[2017-11-01] MEDS: Acetaminophen/Codeine 30-300mg Tablet PO PRN ×3 (00:01→19:28)
[2017-11-01] MEDS: cefTRIAXone\\ROCEPHIN 2 GM, Admixture Fee 1 EACH in Sodium Chloride 0.9% 100 ML IVPB SCH (08:16)
[2017-11-01] MEDS: hydrALAZINE 25 MG TAB PO SCH ×2 (08:17→20:36)
[2017-11-01] MEDS: Famotidine 20 MG TAB PO SCH ×2 (08:17→20:36)
[2017-11-01] MEDS: Aspirin 81 mg Enteric Coated Tablet PO SCH (08:17)
[2017-11-01] MEDS: Metoprolol Tartrate 25 MG TAB PO SCH ×2 (08:17→20:36)
[2017-11-01] MEDS: NIFEdipine XL 30 MG TAB PO SCH (08:17)
[2017-11-01] MEDS: predniSONE 20 MG TAB PO SCH (08:17)
[2017-11-01] MEDS: Heparin 5,000 UNITS/ML VIAL SC SCH ×3 (08:25→20:36)
[2017-11-01] MEDS: Insulin Detemir 100 UNITS/ML 50 UNITS in Pre-Filled Syringe 1 EACH SC SCH (10:22)
[2017-11-01] MEDS ORDERED: Folic Acid 1 MG TAB PO SCH (11:15)
[2017-11-01] MEDS: Folic Acid 1 MG TAB PO SCH (11:41)
[2017-11-01] MEDS ORDERED: Furosemide 80 MG TAB PO SCH (11:45)
--- NOTE | 2017-11-01 13:39 | PDOC.PN ---
- Subjective Encounter Start Date: 11/01/17 Encounter Start Time: 13:37 Subjective: feels pian in left lower abdomen.c/o urinary hesitancy,nausea, weakness - Objective Resuscitation Status: Resuscitation Status FULL:Full Resuscitation MAR Reviewed: Yes Vital Signs & Weight: Vital Signs (12 hours) Temp Pulse Resp BP BP Pulse Ox 11/01/17 08:17 77 170/78 H 11/01/17 08:00 98.5 F 70 16 170/78 H 97 Weight Admit Weight 207 lb 3 oz Weight 207 lb 3 oz I&O: 10/31/17 11/01/17 11/02/17 06:59 06:59 06:59 Intake Total 120 710 Output Total 1600 Balance -1480 710 Result Diagrams: 10/29/17 04:29 10/29/17 04:29 Additional Labs: Accuchecks 11/01/17 11/01/17 10/31/17 11:20 05:31 22:06 POC Glucose 132 H 97 206 H 10/31/17 15:52 POC Glucose 223 H Laboratory Tests 10/31/17 10/31/17 16:54 16:54 Iron 59 TIBC 155 L % Saturation 38 Vitamin B12 717 Folate 5.00 L Phys Exam - Physical Examination Constitutional: NAD HEENT: PERRLA, moist MMs, sclera anicteric, oral pharynx no lesions Neck: no nodes, no JVD, supple, full ROM Respiratory: no wheezing, no rales, no rhonchi, clear to auscultation bilateral Cardiovascular: RRR, no significant murmur, no rub, gallop Gastrointestinal: soft, non-tender, no distention, positive bowel sounds Musculoskeletal: no edema, pulses present Neurological: non-focal, normal sensation, moves all 4 limbs Psychiatric: normal affect, A&O x 3 Skin: no rash Dx/Plan (1) Left leg cellulitis Code(s): L03.116 - CELLULITIS OF LEFT LOWER LIMB Status: Acute (2) Fracture, fibula Code(s): S82.409A - UNSP FRACTURE OF SHAFT OF UNSP FIBULA, INIT FOR CLOS FX Status: Acute Qualifiers: Encounter type: subsequent encounter Fibula location: distal Fracture type: closed Laterality: left Comment: Ortho following (3) Dyslipidemia Code(s): E78.5 - HYPERLIPIDEMIA, UNSPECIFIED Status: Chronic (4) Obesity (BMI 30.0-34.9) Code(s): E66.9 - OBESITY, UNSPECIFIED Status: Chronic (5) ESRD (end stage renal disease) Code(s): N18.6 - END STAGE RENAL DISEASE Status: Acute (6) CAD (coronary artery disease) Code(s): I25.10 - ATHSCL HEART DISEASE OF [place] CORONARY ARTERY W/O ANG PCTRS Status: Chronic Qualifiers: Coronary Disease-Associated Artery/Lesion type: [place] artery [place] vs. transplanted heart: [place] heart Associated angina: without angina Qualified Code(s): I25.10 - Atherosclerotic heart disease of [place] coronary artery without angina pectoris (7) DM type 2 (diabetes mellitus, type 2) Status: Chronic Qualifiers: Diabetes mellitus complication status: with unspecified complications Diabetes mellitus group home insulin use: with terminal clerk use Qualified Code(s) : E11.8 - Type 2 diabetes mellitus with unspecified complications; Z79.4 - vermin exterminator (current) use of insulin; Z79.4 - vermin exterminator (current) use of insulin; Z79.4 - vermin exterminator (current) use of insulin; Z79.4 - vermin exterminator (current) use of insulin Comment: Resume home Lantus, ISS (8) H/O rheumatoid arthritis Code(s): Z87.39 - PERSONAL HISTORY OF DISEASES OF THE MS SYS AND CONN TISS Status: Chronic (9) H/O vasculitis Code(s): Z86.79 - PERSONAL HISTORY OF OTHER DISEASES OF THE CIRCULATORY SYSTEM Status: Chronic (10) HTN (hypertension) Code(s): I10 - ESSENTIAL (PRIMARY) HYPERTENSION Status: Chronic Qualifiers: Hypertension type: essential hypertension Qualified Code(s): I10 - Essential (primary) hypertension (11) Chronic anemia Code(s): D64.9 - ANEMIA, UNSPECIFIED Status: Chronic - Plan continue antibiotics, PT/OT, out of bed/ambulate, DVT proph w/SCDs restart lasix and monitor. Urine Cx negative & pt on ABx for cellulitis -: c/o toe pain left leg in great toe.will check XRay -: HD per nephrology. -: [facility] home tomorrow once is set up ,on PO ABx. -: Add Folic acid for FA deficeincy anemia. * .Monitor BP. home meds as below * am labs Review of Systems - Review of Systems Constitutional: negative: fever, chills, sweats, weakness, malaise, other Eyes: negative: Pain, Vision Change, Conjunctivae Inflammation, Eyelid Inflammation, Redness, Other ENT: negative: Ear Pain, Ear Discharge, Nose Pain, Nose Discharge, Nose Congestion, Mouth Pain, Mouth Swelling, Throat Pain, Throat Swelling, Other Respiratory: negative: Cough, Dry, Shortness of Breath, Hemoptysis, SOB with Excertion, Pleuritic Pain, Sputum, Wheezing Cardiovascular: negative: chest pain, palpitations, orthopnea, paroxysmal nocturnal dyspnea, edema, light headedness, other Gastrointestinal: negative: Nausea, Vomiting, Abdominal Pain, Diarrhea, Constipation, Melena, Hematochezia, Other Genitourinary: negative: Dysuria, Frequency, Incontinence, Hematuria, Retention , Other Musculoskeletal: negative: Neck Pain, Shoulder Pain, Arm Pain, Back Pain, Hand Pain, Leg Pain, Foot Pain, Other Skin: negative: Rash, Lesions, Manuel, Bruising, Other Neurological: negative: Weakness, Numbness, Incoordination, Change in Speech, Confusion, Seizures, Other - Medications/Allergies Allergies/Adverse Reactions: Allergies Allergy/AdvReac Type Severity Reaction Status Date / Time canagliflozin [From Invokana] Allergy Verified 10/28/17 06:42 carvedilol Allergy Verified 10/28/17 06:42 Iodine and Iodide Containing Allergy Verified 10/28/17 06:42 Produc Penicillins Allergy Verified 10/28/17 06:42 Sulfa (Sulfonamide Allergy Verified 10/28/17 06:42 Antibiotics) Medications: Current Medications Acetaminophen (Tylenol) 1,000 mg PO Q6H PRN PRN Reason: Headache/Fever or Mild Pain Last Admin: 10/31/17 09:21 Dose: 1,000 mg Acetaminophen/Codeine Phosphate (Tylenol #3) 1 tab PO Q6H PRN PRN Reason: Pain Last Admin: 11/01/17 07:19 Dose: 1 tab Aspirin (Ecotrin) 81 mg PO DAILY [facility] Last Admin: 11/01/17 08:17 Dose: 81 mg Clonidine (Catapres) 0.1 mg PO Q4H PRN PRN Reason: Systolic BP > 180 Dextrose/Water (Dextrose 50%) 25 gm SLOW IVP PRN PRN PRN Reason: Hypoglycemia Epoetin Deep (Procrit) 5,000 units IVP MoWeFr@0900 [facility] Last Admin: 10/30/17 12:58 Dose: 5,000 units Famotidine (Pepcid) 20 mg PO BID [facility] Last Admin: 11/01/17 08:17 Dose: 20 mg Folic Acid (Folvite) 1 mg PO DAILY [facility] Last Admin: 11/01/17 11:41 Dose: 1 mg Furosemide (Lasix) 80 mg PO DAILY [facility] Furosemide (Lasix) 80 mg PO NOW [facility] Stop: 11/01/17 13:45 Last Admin: 11/01/17 11:41 Dose: 80 mg Glucagon (Glucagon) 1 mg IM PRN PRN PRN Reason: Hypoglycemia Heparin Sodium (Porcine) (Heparin) 5,000 units SC TID [facility] Last Admin: 11/01/17 08:25 Dose: Not Given Hydralazine HCl (Apresoline) 10 mg SLOW IVP Q4H PRN PRN Reason: Systolic BP > 180 Last Admin: 10/30/17 02:39 Dose: 10 mg Hydralazine HCl (Apresoline) 50 mg PO BID [facility] Last Admin: 11/01/17 08:17 Dose: 50 mg Ceftriaxone Sodium 2 gm/Miscellaneous Medication 1 each/ Sodium Chloride 100 mls @ 200 mls/hr IVPB Q24HR [facility] Last Admin: 11/01/17 08:16 Dose: 100 mls Dextrose/Water (D5w) 1,000 mls @ 0 mls/hr IV .Q0M PRN; As Directed PRN Reason: Hypoglycemia Insulin Detemir 50 units/ (Miscellaneous Medication) 0.5 mls @ 0 mls/hr SC QAM [facility] Last Admin: 11/01/17 10:22 Dose: 0.5 mls Vancomycin HCl 1.25 gm/ Sodium (Chloride) 250 mls @ 166.667 mls/hr IVPB [facility] Vancomycin HCl 1 gm/ Device 200 mls @ 200 mls/hr IVPB [facility] Vancomycin HCl 750 mg/ Sodium (Chloride) 250 mls @ 250 mls/hr [facility]PB [facility] Vancomycin HCl 500 mg/ Sodium (Chloride) 100 mls @ 100 mls/hr IVPB [facility] Last Admin: 10/30/17 16:51 Dose: 100 mls Insulin Human Lispro (Humalog) 0 units SC .MODERATE SLIDING SC PRN PRN Reason: Moderate Correctional Scale Last Admin: 10/31/17 18:18 Dose: 4 unit Insulin Human Lispro (Humalog) 0 units SC .BEDTIME SLIDING SC PRN PRN Reason: Bedtime Correctional Scale Metoprolol Tartrate (Lopressor) 25 mg PO BID [facility] Last Admin: 11/01/17 08:17 Dose: 25 mg Miscellaneous Medication (Pharmacy To Dose) 1 each IVPB PRN PRN PRN Reason: Pharmacy to dose Nifedipine (Procardia Xl) 30 mg PO DAILY [facility] Last Admin: 11/01/17 08:17 Dose: 30 mg Hold Vancomycin For (Level >20) 0 each FS .AT DIALYSIS [facility] Ondansetron HCl (Zofran Odt) 4 mg PO Q6H PRN PRN Reason: Nausea/Vomiting Ondansetron HCl (Zofran) 4 mg IVP Q6H PRN PRN Reason: Nausea/Vomiting Last Admin: 10/30/17 07:34 Dose: 4 mg Prednisone (Prednisone) 10 mg PO QAM-[facility] Last Admin: 11/01/17 08:17 Dose: 10 mg Promethazine HCl (Phenergan) 25 mg PO Q6H PRN PRN Reason: Nausea Sodium Chloride (Flush - Normal Saline) 10 ml IVF Q12HR [facility] Last Admin: 11/01/17 08:26 Dose: 10 ml Sodium Chloride (Flush - Normal Saline) 10 ml IVF PRN PRN PRN Reason: Saline Flush
--- NOTE | 2017-11-01 20:07 | PRG ---
DATE OF SERVICE: 11/01/2017 SUBJECTIVE: The patient was seen and examined, complain of some abdominal discomfort otherwise noted with the following vital signs. PHYSICAL EXAMINATION: VITAL SIGNS: Blood pressure 170/78, pulse 77, respiratory rate 16, afebrile, O2 sat 97%, afebrile. HEENT: Unremarkable. CARDIOVASCULAR SYSTEM: First and second heart sounds were heard. RESPIRATORY SYSTEM: Clear to auscultation. DIGESTIVE SYSTEM: Revealed an obese abdomen. EXTREMITIES: Showed no significant peripheral edema. IMPRESSION: 1. End-stage renal disease, hemodialysis dependent. 2. Anemia of chronic kidney disease. 3. Left lower extremity cellulitis. PLAN: 1. Patient to continue with current hemodialysis schedule. 2. Okay for patient to resume her home dose of Lasix. 3. Further management to be dependent on the clinical course.
[2017-11-02 04:37] LABS: #Eosinphils 0.1 thou/uL (0.0-0.7); #Lymphocytes 1.2 thou/uL (1.20-3.40); #Monocytes 0.6 thou/uL (0.11-0.59); #Neutrophils 2.7 thou/uL (1.40-6.50); %Basophils 0.3 % (0.0-1.0); %Eosinophils 1.2 % (0.0-10.0); %Lymphocytes 25.8 % (21.0-51.0); %Monocytes 13.6 % (0.0-10.0); %Neutrophils 59.2 % (42.0-75.0); Hemoglobin 8.4 g/dL (12.0-16.0); Mean Corpuscular Hemoglobin 33.7 pg (27.0-31.0); Mean Platelet Volume 7.7 fL (7.4-10.4); Platelet Count 181 thou/uL (130-400); RBC Distribution Width 13.8 % (11.5-14.5); White Blood Cell (WBC) Count 4.6 thou/uL (4.8-10.8)
[2017-11-02 04:53] LABS: Anion Gap 14 mmol/L (10-20); BUN (Urea Nitrogen) 31 mg/dL (9.8-20.1); Calc. Creatinine Clearance 21 mL/min (70-130); Calcium 7.9 mg/dL (7.8-10.44); Carbon Dioxide 25 mmol/L (23-31); Chloride 99 mmol/L (98-107); Estimated GFR-MDRD 11; Glucose 132 mg/dL (80-115); Potassium 4.5 mmol/L (3.5-5.1); Sodium 133 mmol/L (136-145)
[2017-11-02 07:38] VITALS: BP 170/75; TEMP 98.3
[2017-11-02] MEDS: Epoetin (ESRD) 20,000 UNITS/ML IVP SCH ×3 (09:00→14:48)
[2017-11-02] MEDS ORDERED: Furosemide 80 MG TAB PO SCH (09:00)
[2017-11-02] MEDS: Famotidine 20 MG TAB PO SCH (10:09)
[2017-11-02] MEDS: hydrALAZINE 25 MG TAB PO SCH (10:09)
[2017-11-02] MEDS: Aspirin 81 mg Enteric Coated Tablet PO SCH (10:10)
[2017-11-02] MEDS: predniSONE 20 MG TAB PO SCH (10:11)
[2017-11-02] MEDS: Folic Acid 1 MG TAB PO SCH (10:11)
[2017-11-02] MEDS: NIFEdipine XL 30 MG TAB PO SCH (10:12)
[2017-11-02] MEDS: Heparin 5,000 UNITS/ML VIAL SC SCH (10:13)
[2017-11-02] MEDS: Metoprolol Tartrate 25 MG TAB PO SCH (10:13)
[2017-11-02] MEDS: Insulin Detemir 100 UNITS/ML 50 UNITS in Pre-Filled Syringe 1 EACH SC SCH (10:15)
[2017-11-02] MEDS: Acetaminophen/Codeine 30-300mg Tablet PO PRN (10:27)
[2017-11-02] MEDS: HumaLOG 300 UNITS/3 ML VIAL SC PRN (12:17)
[2017-11-02] MEDS ORDERED: Heparin 10,000 UNITS/ 10 ML VIAL ONE (13:15)
--- NOTE | 2017-11-02 13:33 | PDOC.PN ---
- Subjective Encounter Start Date: 11/02/17 Encounter Start Time: 13:32 Subjective: feels much better. no new complaints.eager to go home - Objective Resuscitation Status: Resuscitation Status FULL:Full Resuscitation MAR Reviewed: Yes Vital Signs & Weight: Vital Signs (12 hours) Temp Pulse Resp BP Pulse Ox 11/02/17 10:12 77 11/02/17 10:09 77 11/02/17 08:00 98.3 F 77 20 95 11/02/17 07:35 98.3 F 79 20 170/75 H 95 Weight Admit Weight 207 lb 3 oz Weight 208 lb 5.389 oz I&O: 11/01/17 11/02/17 11/03/17 06:59 06:59 06:59 Intake Total 710 490 Balance 710 490 Result Diagrams: 11/02/17 04:10 11/02/17 04:10 Additional Labs: Accuchecks 11/02/17 11/02/17 11/01/17 11:30 04:48 20:26 POC Glucose 291 H 152 H 184 H 11/01/17 16:04 POC Glucose 101 Phys Exam - Physical Examination Constitutional: NAD HEENT: PERRLA, moist MMs, sclera anicteric, oral pharynx no lesions Neck: no nodes, no JVD, supple, full ROM Respiratory: no wheezing, no rales, no rhonchi, clear to auscultation bilateral Cardiovascular: RRR, no significant murmur Gastrointestinal: soft, non-tender, no distention, positive bowel sounds Musculoskeletal: no edema, pulses present Neurological: non-focal, normal sensation, moves all 4 limbs Psychiatric: normal affect, A&O x 3 Skin: no rash Dx/Plan (1) Left leg cellulitis Code(s): L03.116 - CELLULITIS OF LEFT LOWER LIMB Status: Acute (2) Fracture, fibula Code(s): S82.409A - UNSP FRACTURE OF SHAFT OF UNSP FIBULA, INIT FOR CLOS FX Status: Acute Qualifiers: Encounter type: subsequent encounter Fibula location: distal Fracture type: closed Laterality: left Comment: Ortho following (3) Dyslipidemia Code(s): E78.5 - HYPERLIPIDEMIA, UNSPECIFIED Status: Chronic (4) Obesity (BMI 30.0-34.9) Code(s): E66.9 - OBESITY, UNSPECIFIED Status: Chronic (5) ESRD (end stage renal disease) Code(s): N18.6 - END STAGE RENAL DISEASE Status: Acute (6) CAD (coronary artery disease) Code(s): I25.10 - ATHSCL HEART DISEASE OF [place] CORONARY ARTERY W/O ANG PCTRS Status: Chronic Qualifiers: Coronary Disease-Associated Artery/Lesion type: [place] artery [place] vs. transplanted heart: [place] heart Associated angina: without angina Qualified Code(s): I25.10 - Atherosclerotic heart disease of [place] coronary artery without angina pectoris (7) DM type 2 (diabetes mellitus, type 2) Status: Chronic Qualifiers: Diabetes mellitus complication status: with unspecified complications Diabetes mellitus alf insulin use: with watermelon harvesting supervisor use Qualified Code(s) : E11.8 - Type 2 diabetes mellitus with unspecified complications; Z79.4 - FPC (current) use of insulin; Z79.4 - long term care social worker (current) use of insulin; Z79.4 - long term care social worker (current) use of insulin; Z79.4 - long term care social worker (current) use of insulin Comment: Resume home RENZO Gill (8) H/O rheumatoid arthritis Code(s): Z87.39 - PERSONAL HISTORY OF DISEASES OF THE MS SYS AND CONN TISS Status: Chronic (9) H/O vasculitis Code(s): Z86.79 - PERSONAL HISTORY OF OTHER DISEASES OF THE CIRCULATORY SYSTEM Status: Chronic (10) HTN (hypertension) Code(s): I10 - ESSENTIAL (PRIMARY) HYPERTENSION Status: Chronic Qualifiers: Hypertension type: essential hypertension Qualified Code(s): I10 - Essential (primary) hypertension (11) Chronic anemia Code(s): D64.9 - ANEMIA, UNSPECIFIED Status: Chronic - Plan continue antibiotics, PT/OT, out of bed/ambulate, DVT proph w/SCDs OK to DC home w HH today w Op ortho follow up -: PO abx to finish course.Cx negative -: advised to f/u w rheumatoloy & cardiology.referrals given -: home meds reconciled. * . Review of Systems - Review of Systems Constitutional: negative: fever, chills, sweats, weakness, malaise, other Eyes: negative: Pain, Vision Change, Conjunctivae Inflammation, Eyelid Inflammation, Redness, Other ENT: negative: Ear Pain, Ear Discharge, Nose Pain, Nose Discharge, Nose Congestion, Mouth Pain, Mouth Swelling, Throat Pain, Throat Swelling, Other Respiratory: negative: Cough, Dry, Shortness of Breath, Hemoptysis, SOB with Excertion, Pleuritic Pain, Sputum, Wheezing Cardiovascular: negative: chest pain, palpitations, orthopnea, paroxysmal nocturnal dyspnea, edema, light headedness, other Gastrointestinal: negative: Nausea, Vomiting, Abdominal Pain, Diarrhea, Constipation, Melena, Hematochezia, Other Genitourinary: negative: Dysuria, Frequency, Incontinence, Hematuria, Retention , Other Musculoskeletal: Leg Pain, Foot Pain. negative: Neck Pain, Shoulder Pain, Arm Pain, Back Pain, Hand Pain, Other Skin: negative: Rash, Lesions, Manuel, Bruising, Other Neurological: negative: Weakness, Numbness, Incoordination, Change in Speech, Confusion, Seizures, Other - Medications/Allergies Allergies/Adverse Reactions: Allergies Allergy/AdvReac Type Severity Reaction Status Date / Time canagliflozin [From Invokana] Allergy Verified 10/28/17 06:42 carvedilol Allergy Verified 10/28/17 06:42 Iodine and Iodide Containing Allergy Verified 10/28/17 06:42 Produc Penicillins Allergy Verified 10/28/17 06:42 Sulfa (Sulfonamide Allergy Verified 10/28/17 06:42 Antibiotics) Medications: Current Medications Acetaminophen (Tylenol) 1,000 mg PO Q6H PRN PRN Reason: Headache/Fever or Mild Pain Last Admin: 10/31/17 09:21 Dose: 1,000 mg Acetaminophen/Codeine Phosphate (Tylenol #3) 1 tab PO Q6H PRN PRN Reason: Pain Last Admin: 11/02/17 10:27 Dose: 1 tab Aspirin (Ecotrin) 81 mg PO DAILY [facility] Last Admin: 11/02/17 10:10 Dose: 81 mg Clonidine (Catapres) 0.1 mg PO Q4H PRN PRN Reason: Systolic BP > 180 Dextrose/Water (Dextrose 50%) 25 gm SLOW IVP PRN PRN PRN Reason: Hypoglycemia Epoetin Deep (Procrit) 5,000 units IVP MoWeFr@0900 [facility] Last Admin: 10/30/17 12:58 Dose: 5,000 units Famotidine (Pepcid) 20 mg PO BID [facility] Last Admin: 11/02/17 10:09 Dose: 20 mg Folic Acid (Folvite) 1 mg PO DAILY [facility] Last Admin: 11/02/17 10:11 Dose: 1 mg Furosemide (Lasix) 80 mg PO DAILY [facility] Last Admin: 11/02/17 10:12 Dose: 80 mg Glucagon (Glucagon) 1 mg IM PRN PRN PRN Reason: Hypoglycemia Heparin Sodium (Porcine) (Heparin) 5,000 units SC TID [facility] Last Admin: 11/02/17 10:13 Dose: Not Given Hydralazine HCl (Apresoline) 10 mg SLOW IVP Q4H PRN PRN Reason: Systolic BP > 180 Last Admin: 10/30/17 02:39 Dose: 10 mg Hydralazine HCl (Apresoline) 50 mg PO BID [facility] Last Admin: 11/02/17 10:09 Dose: 50 mg Ceftriaxone Sodium 2 gm/Miscellaneous Medication 1 each/ Sodium Chloride 100 mls @ 200 mls/hr IVPB Q24HR [facility] Last Admin: 11/01/17 08:16 Dose: 100 mls Dextrose/Water (D5w) 1,000 mls @ 0 mls/hr IV .Q0M PRN; As Directed PRN Reason: Hypoglycemia Insulin Detemir 50 units/ (Miscellaneous Medication) 0.5 mls @ 0 mls/hr SC QAM [facility] Last Admin: 11/02/17 10:15 Dose: 0.5 mls Vancomycin HCl 1.25 gm/ Sodium (Chloride) 250 mls @ 166.667 mls/hr IVPB [facility] Vancomycin HCl 1 gm/ Device 200 mls @ 200 mls/hr IVPB [facility] Vancomycin HCl 750 mg/ Sodium (Chloride) 250 mls @ 250 mls/hr IVPB [facility] Vancomycin HCl 500 mg/ Sodium (Chloride) 100 mls @ 100 mls/hr IVPB [facility] Last Admin: 10/30/17 16:51 Dose: 100 mls Insulin Human Lispro (Humalog) 0 units SC .MODERATE SLIDING SC PRN PRN Reason: Moderate Correctional Scale Last Admin: 11/02/17 12:17 Dose: 6 unit Insulin Human Lispro (Humalog) 0 units SC .BEDTIME SLIDING SC PRN PRN Reason: Bedtime Correctional Scale Metoprolol Tartrate (Lopressor) 25 mg PO BID [facility] Last Admin: 11/02/17 10:13 Dose: 25 mg Miscellaneous Medication (Pharmacy To Dose) 1 each IVPB PRN PRN PRN Reason: Pharmacy to dose Nifedipine (Procardia Xl) 30 mg PO DAILY [facility] Last Admin: 11/02/17 10:12 Dose: 30 mg Hold Vancomycin For (Level >20) 0 each FS .AT DIALYSIS [facility] Ondansetron HCl (Zofran Odt) 4 mg PO Q6H PRN PRN Reason: Nausea/Vomiting Ondansetron HCl (Zofran) 4 mg IVP Q6H PRN PRN Reason: Nausea/Vomiting Last Admin: 10/30/17 07:34 Dose: 4 mg Prednisone (Prednisone) 10 mg PO QAM-[facility] Last Admin: 11/02/17 10:11 Dose: 10 mg Promethazine HCl (Phenergan) 25 mg PO Q6H PRN PRN Reason: Nausea Sodium Chloride (Flush - Normal Saline) 10 ml IVF Q12HR [facility] Last Admin: 11/02/17 10:16 Dose: 10 ml Sodium Chloride (Flush - Normal Saline) 10 ml IVF PRN PRN PRN Reason: Saline Flush
--- NOTE | 2017-11-02 18:39 | PRG ---
DATE OF SERVICE: 11/02/2017 SUBJECTIVE: The patient was seen and examined with no new complaint, noted with the following vital signs. PHYSICAL EXAMINATION: VITAL SIGNS: Afebrile with temperature 98.3, pulse 79, respiratory rate 20, O2 sat 95% with blood pr essure 170/75. HEENT: Unremarkable with moist oral mucosa. No conjunctival injection or icterus. NECK: Supple. CARDIOVASCULAR SYSTEM: First and second heart sounds were heard. RESPIRATORY SYSTEM: Clear to auscultation. DIGESTIVE SYSTEM: Revealed a benign abdomen with positive bowel sounds. EXTREMITIES: No peripheral edema. SKIN: No new gross rash. LYMPHATICS: No peripheral lymphadenopathy. IMPRESSION: 1. End-stage renal disease, hemodialysis dependent. 2. Left lower extremity cellulitis. PLAN: 1. The patient to be dialyzed today in accordance with her schedule. 2. Further management to be dependent on the clinical course.
--- NOTE | 2017-11-03 09:39 | DIS ---
DATE OF ADMISSION: 10/28/2017 DATE OF DISCHARGE: 11/02/2017 PRIMARY CARE PHYSICIAN: Babar Marin M.D. CONDITION AT THE TIME OF DISCHARGE: Stable and improved. DISCHARGE DISPOSITION: Home with [facility]. DISCHARGE DIAGNOSES: 1. Left lower extremity cellulitis. 2. Left fibula fracture. 3. Dyslipidemia. 4. Obesity. 5. End-stage renal disease, on hemodialysis. 6. Coronary artery disease. 7. Diabetes mellitus type 2. 8. Rheumatoid arthritis. 9. History of vasculitis. 10. Hypertension. 11. Chronic macrocytic anemia. CONSULTATIONS INHOUSE: Include, 1. Orthopedics, Dr. Sotelo. 2. Nephrology, Dr. Mosquera for maintenance hemodialysis. PROCEDURES DONE IN THE HOSPITAL: Include, 1. Lower extremity ultrasound which is negative for any DVT. 2. X-ray of the tibia and fibula which shows mildly displaced distal fibular fracture in the left an d ankle. 3. Ankle x-ray which is negative for any osseous abnormalities on the left ankle, except for the dis laura left fibular fracture. 4. Hemodialysis. HISTORY OF PRESENT ILLNESS: Ms. Stubbs is a 67-year-old very pleasant female with past med ical history of end-stage renal disease, diabetes, hypertension, rheumatoid arthritis, and vasculitis who presented to the emergency room with complaints of left leg pain. She reported falling at her h ome 2 weeks prior to presentation to our hospital. At that time, she was seen at an outside hospital and was discharged home. Since her discharge, she was having difficulty with ambulation in the left leg and increased pain. In the evaluation in our emergency room, she was found to have a fracture o f the left fibula. Lower extremity ultrasound was negative for DVT. She was also found to have left lower extremity cellulitis. She was started on empiric IV antibiotics and Orthopedics was consulted as well as Nephrology for maintenance hemodialysis. She was otherwise hemodynamically stable. Edie prieto see admission history and physical for further details. HOSPITAL COURSE: Orthopedics saw the patient and recommended conservative management and she was fit russel with a boot for ambulation and physical therapy was initiated and home health was arranged at the time of discharge. She was continued on broad spectrum IV antibiotics for her cellulitis with great improvement. It was eventually transitioned to oral antibiotics. She was treated with Rocephin and vancomycin in the em ergency room which she tolerated very well despite her listed allergy of PENICILLIN. For this reason , she was discharged on Keflex for few more days. She was continued on maintenance hemodialysis by Dr. Mosquera and tolerated it very well. By the time of discharge, she was back to her baseline and was eager to go home. Home health was arr anged for her. DISCHARGE MEDICATIONS: Are as follows, Phenergan as needed, Procardia 30 mg daily, metoprolol tartra te 25 mg p.o. b.i.d., prednisone 5 mg p.o. t.i.d., hydralazine 50 mg p.o. b.i.d., NovoLog as previous , sliding scale Lantus 50 units in the morning, Lasix 80 mg daily, vitamin D2 daily, Lipitor 40 mg da jessy, aspirin 81 mg daily. New medications; Florastor 250 mg daily, folic acid 1 mg daily, Keflex 250 mg every 6 hours for 5 more days. The patient was found to be anemic with hemoglobin of 9.0, hematocrit 26.4 and iron indices were with in normal limits, but her folic acid was low at 5. B12 level is normal. For this reason, she was st arted on oral folic acid supplement for about a month. At the request of the patient, she is being referred to Cardiology, Dr. Mckenzie for her history of con gestive heart failure that was once told to her. She is also being referred to Orthopedics for outpa tient followup of left fibula fracture. She is also being referred to Dr. Chema Wade at [facility] for establishment of care for her history of chronic rheumatoid arthritis. Total time spent in the discharge is 35 minutes.
== END 2017-11-02 17:53 | disposition home health service (06) | DRG 602 ==
LOC: ERS 23:47 → T4-A 10-28 04:04 → OBSVTOIN 10-28 07:05
PROVIDERS: ADMIT Family Medicine; ATTEND Family Medicine
PROC: 5A1D70Z Performance of Urinary Filtration, Intermittent, Less than 6 Hours Per Day (ICD-10-PCS; principal; 2017-10-28)
DX: L03.116 Cellulitis of left lower limb (principal); N18.6 End stage renal disease; E11.22 Type 2 diabetes mellitus with diabetic chronic kidney disease; E66.01 Morbid (severe) obesity due to excess calories; D52.9 Folate deficiency anemia, unspecified; I11.0 Hypertensive heart disease with heart failure; E11.65 Type 2 diabetes mellitus with hyperglycemia; E87.1 Hypo-osmolality and hyponatremia; D53.9 Nutritional anemia, unspecified; S82.432A Displaced oblique fracture of shaft of left fibula, initial encounter for closed fracture; W01.0XXA Fall on same level from slipping, tripping and stumbling without subsequent striking against object, initial encounter; Z99.2 Dependence on renal dialysis; E78.5 Hyperlipidemia, unspecified; Z68.31 Body mass index [BMI] 31.0-31.9, adult; I25.10 Atherosclerotic heart disease of native coronary artery without angina pectoris; M06.9 Rheumatoid arthritis, unspecified; E87.6 Hypokalemia; M21.062 Valgus deformity, not elsewhere classified, left knee; H54.8 Legal blindness, as defined in USA; D63.1 Anemia in chronic kidney disease; Z79.4 Long term (current) use of insulin
CPT/HCPCS: 36415; 36416; 71045; 80048; 80053; 80202; 82553; 82607; 82746; 83540; 83550; 83605; 83735; 84484; 85007; 85025; 85027; 85610; 85730; 86704; 86706; 86803; 87340; 90935; 93005; A4216; G0257; G8978-GP-CL; G8979-GP-CJ; G8987-GO-CK; G8988-GO-CI; J0360; J0696; J1644; J1815; J1885; J2405; J3370; J7050; J7506; Q4081

== ENCOUNTER 2018-04-21 10:35 | Inpatient (IN) | payer MEDICARE, OTHER ==
--- NOTE | 2018-04-21 12:20 | RAD ---
PORTABLE AP CHEST RADIOGRAPH: Date: 04-21-18 History: Dyspnea, shortness of breath. Comparison: 10-28-17 FINDINGS: Right internal jugular vein hemodialysis catheter remains in place and unchanged in position. Cardiac silhouette is magnified by projection but stable in size. There is parenchymal changes in the region of the lingula. This had a more linear appearance on the prior study and has a linear configuration. This also has a globular appearance on today's exam. This may be related to either persistent subseg mental atelectasis or related to mild scarring. However, given globular appearance, neoplastic proces s cannot be entirely excluded. Lungs are otherwise clear. Pulmonary vasculature is within normal limi ts. No other interval change. IMPRESSION: Parenchymal opacity in the region of the lingula which is more prominent than on the prior exam. This could be related to an area of scarring or atelectasis, but neoplastic process cannot be entirely ex cluded as this finding persists since prior exam. Follow up CT thorax is suggested. POS: JEWELL
[2018-04-21] MEDS ORDERED: Ondansetron HCl/PF 4 MG/2 ML Vial ONE ×2 (12:31→12:45)
[2018-04-21] MEDS ORDERED: Morphine 4 MG/ML VIAL ONE ×3 (12:31→15:29)
[2018-04-21 13:20] LABS: #Eosinphils 0.1 thou/uL (0.0-0.7); #Lymphocytes 1.6 thou/uL (1.20-3.40); %Basophils 0.1 % (0.0-1.0); %Eosinophils 0.6 % (0.0-10.0); %Lymphocytes 14.6 % (21.0-51.0); %Monocytes 9.7 % (0.0-10.0); %Neutrophils 75.1 % (42.0-75.0); ALT (SGPT) 22 U/L (8-55); AST (SGOT) 17 U/L (5-34); Albumin 3.1 g/dL (3.4-4.8); Alkaline Phosphatase 131 U/L (40-150); Anion Gap 22 mmol/L (10-20); BUN (Urea Nitrogen) 101 mg/dL (9.8-20.1); Calc. Creatinine Clearance 0 mL/min (70-130); Carbon Dioxide 14 mmol/L (23-31); Chloride 102 mmol/L (98-107); Estimated GFR-MDRD 6; Globulin 2.6 g/dL (2.4-3.5); Glucose 82 mg/dL (80-115); Hemoglobin 10.2 g/dL (12.0-16.0); MDiff Complete? YES; Mean Corpuscular HGB CONC 32.8 g/dL (32.0-36.0); Mean Corpuscular Hemoglobin 32.4 pg (27.0-31.0); Mean Corpuscular Volume 98.6 fL (78.0-98.0); Mean Platelet Volume 8.8 fL (7.4-10.4); PLT Morphology Comment Appears Decreased; Platelet Count 96 thou/uL (130-400); Polychromasia SLIGHT = 2-3 cells (100X) (0-2/hpf); Potassium 5.1 mmol/L (3.5-5.1); Protein, Total 5.7 g/dL (6.0-8.3); RBC Distribution Width 14.4 % (11.5-14.5); Red Blood Cell (RBC) Count 3.14 mill/uL (4.20-5.40); Sodium 133 mmol/L (136-145); White Blood Cell (WBC) Count 10.7 thou/uL (4.8-10.8)
--- NOTE | 2018-04-21 13:21 | CT ---
CT CHEST WITHOUT CONTRAST: Date: 04/21/18 HISTORY: Shortness of breath. Left rib pain. FINDINGS: Absence of IV contrast reduces the sensitivity of exam, particular for evaluation of mediastinal, hil ar, and vascular structures. There are vascular calcifications without evidence of aneurysmal dilatation of the thoracic aorta. An 11.0 mm right paratracheal lymph node is seen. There are small bilateral pleural effusions with daina cent atelectatic changes. No pneumothoraces are seen. There are multiple nodules in the right upper l obe measuring up to 8.0 mm. No pericardial effusion is identified. There are degenerative changes in the spine. An old left 10th rib fracture is present. There are coronary artery calcifications. IMPRESSION: 1. Small bilateral pleural effusions. 2. Right upper lobe nodularity measuring up to 8.0 mm. The possibility of metastatic disease cannot be excluded. POS: JEWELL
[2018-04-21 13:22] LABS: CKMB 2.5 ng/mL (0-6.6); Troponin I 0.118 ng/mL (< 0.028)
--- NOTE | 2018-04-21 13:25 | CT ---
CT ABDOMEN AND PELVIS WITHOUT CONTRAST: Date: 04/21/18 HISTORY: Fall, abdominal pain. Patient on dialysis. FINDINGS: Absence of oral and IV contrast reduces the sensitivity of exam, particularly for evaluation of solid organs and bowel. Small bilateral pleural effusions are present. No calcified gallstones are seen. No free air is noted in the abdomen or pelvis. A tiny amount of fluid is seen in the abdomen. No calculi seen in the kidn eys, ureters, or the urinary bladder. No hydroureteronephrosis is noted on either side. Uterus is pre sent. There are vascular calcifications without evidence of aneurysmal dilatation of the abdominal ao rta. There are degenerative changes in the spine. Due to absence of IV contrast, injury to the solid organs cannot be completely excluded. IMPRESSION: 1. Small bilateral pleural effusions. 2. No CT evidence of urinary tract calculi or obstruction. 3. Absence of IV contrast reduces the sensitivity of exam. The possibility of solid organ injury can not be completely excluded. POS: JEWELL
[2018-04-21] MEDS ORDERED: Furosemide 40 MG/4 ML VIAL ONE (16:07)
[2018-04-21 16:37] LABS: Troponin I 0.117 ng/mL (< 0.028)
[2018-04-21 19:32] LABS: Troponin I 0.134 ng/mL (< 0.028)
--- NOTE | 2018-04-21 21:28 | CON ---
DATE OF CONSULTATION: 04/21/2018 HISTORY OF PRESENT ILLNESS: Ms. Stubbs is a 68-year-old white female with ESRD and was admitted for generalized weakness. According to the patient, she tried to get up at home, but fell down due to in ability to ambulate without support. Due to the persistence of this weakness, she was brought to the ER. She is being admitted for further management. We are now being consulted for maintenance hemod ialysis. Of interest, this patient missed her dialysis last Thursday. She follows a Thursday, Thursday , Thursday dialysis regimen. I have scheduled this patient for dialysis today. REVIEW OF SYSTEMS: Positive for generalized malaise. No chest pain. Mild shortness of breath, no n ausea, no vomiting. Appetite decreased, energy level is decreased. No hematochezia, no melena, no g ross hematuria, no dysuria, no urinary frequency. HOME MEDICATIONS: Prednisone 5 mg p.o. t.i.d., hydralazine 50 mg p.o. b.i.d., Florastor 250 mg daily , Phenergan 25 mg q.6 hours p.r.n., nifedipine 30 mg daily, metoprolol tartrate 25 mg p.o. b.i.d., in sulin Glargine 50 units subcu q.a.m., furosemide 80 mg daily, folic acid 1 mg daily, vitamin D2 50,00 0 international unit once a week, atorvastatin 40 mg at bedtime, aspirin 81 mg tab daily, Tylenol wit h codeine 1 tab q.6 hours p.r.n. ALLERGIES: INVOKANA, CARVEDILOL, IODINE, PENICILLIN, and SULFA. TRAUMA: Status post fall. IMMUNIZATIONS: Up to date. HOSPITALIZATIONS: Please see past medical history. PAST MEDICAL HISTORY: 1. ESRD from diabetic nephropathy -- patient is not a transplant candidate. 2. Status post vasculitis. 3. History of decreased visual acuity. 4. History of diabetic neuropathy. 5. Status post anasarca. 6. Hypertension. 7. COPD/asthma. 8. Hyperlipidemia. PAST SURGICAL HISTORY: Includes: 1. Status post AV fistula placement. 2. Status post cuffed dialysis catheter placement. 3. Status post bilateral tubal ligation. 4. Status post left femoral artery angioplasty. 5. Status post appendectomy. 6. Status post colonoscopy. FAMILY HISTORY: No family history of ESRD. SOCIAL HISTORY: , lives in [place], three children. 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 Education: High school with some college. Smoked for 5 years, one-third pack a day. Alcohol rarely . No IV drug abuse. Status post blood transfusion. Sedentary lifestyle. FAMILY HISTORY: No family history of ESRD. PHYSICAL EXAMINATION: VITAL SIGNS: Blood pressure is 130/70, heart rate 70. GENERAL: Awake, alert, comfortable, not in overt distress. HEENT: Pinkish conjunctivae, anicteric sclerae. NECK: No neck mass, no carotid bruits, no JVD. Decreased visual acuity. LUNGS: Decreased breath sounds. HEART: Normal sinus rhythm. No murmur, no gallops or rubs. ABDOMEN: Globular, soft, nontender, no masses. EXTREMITIES: Positive for edema. NEUROLOGIC: Decreased motor lower extremities. LABORATORY: Of 04/21/2018 white count 10.7, hemoglobin 10.2. Sodium 133, potassium 5.1, chloride 10 2, carbon dioxide 14. BUN is 101, creatinine 7.04. Calcium 8.0, ferritin 1012, albumin 3.1. White count 10.7, hemoglobin 10.2. Chest x-ray shows parenchymal opacity in the region of the lingula, which is more prominent. CT scan of the chest 04/21/2018 showed small bilateral pleural effusions. There is a right upper lobe nodul arity -- could not rule out metastatic disease. CT scan of the abdomen and pelvis, no evidence of renal obstruction. ASSESSMENT AND PLAN: 1. Status post generalized weakness -- continue supportive care. Consider physical therapy. If nee ded, we can do a Neurology consult. 2. End-stage renal disease. Since the patient missed her dialysis last Thursday, we will schedule her for regular dialysis today. I have discussed the case with the dialysis nursing staff. She is sche duled for dialysis later tonight. 3. Pulmonary lung lesion, having consider Pulmonary evaluation. Overall, I agree with current management.
[2018-04-21] MEDS ORDERED: Ondansetron HCl/PF 4 MG/2 ML Vial IVP PRN (21:56)
[2018-04-21] MEDS ORDERED: Dextrose 50% Abboject 50 ML SYRINGE SLOW IVP PRN (21:56)
[2018-04-21] MEDS ORDERED: Acetaminophen 325 MG TAB PO PRN (21:56)
[2018-04-21] MEDS ORDERED: Dextrose 5% in Water 1,000 ML IV PRN (21:56)
[2018-04-21] MEDS ORDERED: HumaLOG 300 UNITS/3 ML VIAL SC PRN (21:56)
[2018-04-21] MEDS ORDERED: hydrALAZINE 20 MG/ML VIAL SLOW IVP PRN (21:56)
[2018-04-21] MEDS ORDERED: Acetaminophen 650 MG Suppository PR PRN (21:56)
[2018-04-21] MEDS ORDERED: HYDROcodone/Acetaminophen 5/325 mg Tablet PO PRN (21:56)
[2018-04-22] MEDS: Famotidine 20 MG TAB PO SCH (08:32)
[2018-04-22] MEDS: HYDROcodone/Acetaminophen 5/325 mg Tablet PO PRN (08:32)
[2018-04-22] MEDS: Heparin 5,000 UNITS/ML VIAL SC SCH ×3 (08:35→21:14)
--- NOTE | 2018-04-22 09:42 | PRG ---
DATE OF SERVICE: 04/22/2018 SUBJECTIVE: Ms. Stubbs is a 68-year-old white female being followed by the Renal Service for her [facility] hemodialysis. She underwent hemodialysis yesterday. She did develop some hypotension with dialysis. We then adjusted the fluid removal. This morning, she is still complaining of diffuse hallie lgia. She tells me she is not ready to go home. She lives currently by herself in the one will be [facility] be able to assist her with ambulation. During the incidental workup, this patient was found to have lung lesions on the CT chest. There was right upper lobe nodularity measuring 8 mm. According to the patient at one time she has been worke d up for cancer by her oncologist. She had a left breast swelling at that time. However, this was s everal years ago. I did explain to the patient, she may need to follow up with her regional oncologi st is to further work her up regarding this right upper lobe nodularity. No other complaints, no chest pain, shortness of breath. OBJECTIVE: VITAL SIGNS: Blood pressure is 154/66, heart rate 86, respiratory rate 16, temperature 99.3, pulse o x 95%. GENERAL: Noted to be awake, alert, comfortable, not in overt distress. SKIN: Adequate turgor. HEENT: The patient has pinkish conjunctivae, anicteric sclerae. NECK: No neck mass, no carotid bruits, no JVD. CHEST: No deformities. LUNGS: Clear breath sounds. HEART: Normal sinus rhythm. No murmur, no gallops, no rubs. ABDOMEN: Globular, soft, nontender, no masses. EXTREMITIES: No edema, no deformities. MEDICATIONS: 04/22/2018 was reviewed. LABORATORY DATA: 1. On 04/22/2018 - none done. 2. On 04/21/2018 - Lab work was reviewed. ASSESSMENT AND PLAN: 1. End-stage renal disease, stable. We will continue current Thursday, Thursday, Thursday hemodialysis regimen. Again, fluid removal to be done only as tolerated by the patient. 2. Right upper lobe nodularity - via CT scan - the patient instructed to follow up with her regional oncologist, who did malignancy workup with her a few years back. 3. Generalized malaise and diffuse myalgia - The patient essentially unimproved. She is still havin g this diffuse myalgia and somewhat limited in her mobility. She may need a PT consult and/or possib le outpatient half-way placement ?/[facility]/rehabilitation. Overall, agree with current management. We will check base met and CBC in a.m.
--- NOTE | 2018-04-22 14:54 | PDOC.PN ---
- Subjective Encounter Start Date: 04/22/18 Encounter Start Time: 11:00 follow up for SOB, dialysis nonadherence. Seen by Dr Smallwood last evening, set up for HD last night, completed without issue. pt complains of weakness, refused walking program and asked about rehab No F/c, no N/V/d/C, no Cp, denies SOB at present. complains of rib pain to left chest all systems reviewed and neg x as above - Objective Resuscitation Status: Resuscitation Status FULL:Full Resuscitation MAR Reviewed: Yes Vital Signs & Weight: Vital Signs (12 hours) Temp Pulse Resp BP BP Pulse Ox 04/22/18 11:36 98.8 F 85 14 131/61 94 L 04/22/18 08:02 99.3 F 86 16 04/22/18 08:00 99.3 F 86 16 154/66 H 95 04/22/18 04:38 89 18 137/63 Weight Weight 208 lb 6.4 oz I&O: 04/21/18 04/22/18 04/23/18 06:59 06:59 06:59 Intake Total 480 Balance 480 Result Diagrams: 04/21/18 12:48 04/21/18 12:48 Additional Labs: Accuchecks 04/22/18 04/22/18 10:59 05:52 POC Glucose 319 H 173 H Phys Exam - Physical Examination Constitutional: NAD HEENT: PERRLA, moist MMs, sclera anicteric, oral pharynx no lesions Neck: no nodes, no JVD, supple, full ROM Respiratory: no wheezing, no rales, no rhonchi, clear to auscultation bilateral Cardiovascular: RRR, no significant murmur, no rub Gastrointestinal: soft, non-tender, no distention, positive bowel sounds Musculoskeletal: pulses present, edema present Neurological: non-focal, normal sensation, moves all 4 limbs Lymphatic: no nodes Psychiatric: normal affect, A&O x 3 Skin: no rash, normal turgor, cap refill <2 seconds Dx/Plan (1) Chest pain Code(s): R07.9 - CHEST PAIN, UNSPECIFIED Status: Acute Qualifiers: Chest pain type: chest pain on breathing Qualified Code(s): R07.1 - Chest pain on breathing; R07.81 - Pleurodynia Comment: musculoskeletal CP from all (2) ESRD (end stage renal disease) Code(s): N18.6 - END STAGE RENAL DISEASE Status: Chronic Comment: SOB better after HD (3) CAD (coronary artery disease) Code(s): I25.10 - ATHSCL HEART DISEASE OF [place] CORONARY ARTERY W/O ANG PCTRS Status: Chronic Qualifiers: Coronary Disease-Associated Artery/Lesion type: [place] artery [place] vs. 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 insulin; Z79.4 - intermodal owner operator truck driver (current) use of insulin Comment: Resume home [place] ISS (5) Dyslipidemia Code(s): E78.5 - HYPERLIPIDEMIA, UNSPECIFIED Status: Chronic (6) H/O rheumatoid arthritis Code(s): Z87.39 - PERSONAL HISTORY OF DISEASES OF THE MS SYS AND CONN TISS Status: Chronic (7) H/O vasculitis Code(s): Z86.79 - PERSONAL HISTORY OF OTHER DISEASES OF THE CIRCULATORY SYSTEM Status: Chronic (8) HTN (hypertension) Code(s): I10 - ESSENTIAL (PRIMARY) HYPERTENSION Status: Chronic Qualifiers: Hypertension type: essential hypertension Qualified Code(s): I10 - Essential (primary) hypertension (9) Obesity (BMI 30.0-34.9) Code(s): E66.9 - OBESITY, UNSPECIFIED Status: Chronic - Plan cont current plan of care, PT/OT, social worker psychiatric, out of bed/ambulate * .
--- NOTE | 2018-04-22 15:25 | HP ---
DATE OF ADMISSION: 04/21/2018 PRIMARY CARE PHYSICIAN: Babar Marin M.D. PRIMARY FLATWORK WASHER: Out of [facility] and dialyses in [place]. TIME OF SERVICE: 1500 CHIEF COMPLAINT: Shortness of breath. HISTORY OF PRESENT ILLNESS: Ms. Stubbs is a 68-year-old female with a history of end-stage renal dis ease on hemodialysis, vasculitis, neuropathy, rheumatoid arthritis, diabetes, hypertension, hyperlipi demia who presents to the emergency department with shortness of breath and left-sided rib pain. She started having shortness of breath this morning and had had diarrhea for the last 3 days prior to presentation. She tends to get up off the floor after getting out of bed, feeling very weak, and go and sit back down on her bed and sliding down the side of her bed to the floor. During that time, s he did hit her left-sided chest on the bed. The patient has been feeling increasingly weak since the last several days. Her last dialysis treatm ent was 5 days prior to admission on Thursday. She missed Thursday and Thursday treatments. She had increasing shortness of breath and lower extremity edema. No GI bleeding. No fevers or chil ls. No chest pain or sputum production. In the Emergency Department, she was noted to be in the 80s on room air, requiring a small amount of oxygen. She was given IV Lasix once and some nitro paste. We were subsequently called for admission for possible CHF type exacerbation. PAST MEDICAL HISTORY: 1. Vasculitis. 2. Peripheral neuropathy. 3. Legal blindness. 4. Rheumatoid arthritis. 5. End-stage renal disease on hemodialysis. 6. Anasarca secondary to fluid retention. 7. History of medical nonadherence. 8. Diabetes mellitus type 2. 9. Hyperlipidemia. 10. Essential hypertension. 11. Asthma, mild, intermittent. PAST SURGICAL HISTORY: Includes, 1. Bilateral cataract surgery with intraocular lens replacements. 2. D and C of the uterine lining. 3. Appendectomy remotely. 4. Bilateral tubal ligation remotely. 5. Left forearm fistula creation and secondary angioplasty balloon. ALLERGIES: ATORVASTATIN, INVOKANA, CARVEDILOL, IODINE, PENICILLIN and SULFA. She cannot recall her reactions. HOME MEDICATIONS: 1. NovoLog sliding scale. 2. Prednisone 5 mg daily. 3. Pyridoxine 50 mg daily. 4. Iron sulfate 325 mg p.o. t.i.d. 5. Lantus 50 units subcu q.a.m. 6. Lasix 20 mg p.o. q.a.m. 7. Omeprazole 40 mg p.o. q.a.m. FAMILY HISTORY: Negative for history of clotting or bleeding disorders, no immune dysfunction. SOCIAL HISTORY: Negative for alcohol, drugs or tobacco use. PHYSICAL EXAMINATION: VITAL SIGNS: Temperature 98.8, pulse 76, respiratory rate 15, blood pressure 162/51, satting 95% on room air. GENERAL: She is awake. She is alert. She is oriented x3. She is a well-developed, well-nourished, obese white female who appears to be mildly short of breath, but not really dyspneic. She is in no acute distress. HEENT: She is normocephalic, atraumatic. Pupils equal, round and reactive to light bilaterally. Mu cous membranes are moist. She has no visible lesions. No thrush. NECK: Supple. She has no lymphadenopathy, no JVD, no thyromegaly. She has no carotid upstrokes. T here are no bruits. LUNGS: Clear without wheezes, rales or rhonchi. CARDIOVASCULAR: She has normal S1, S2. She does have an S4, but no S3. She has a faint holosystoli c murmur best heard at the right upper sternal border. ABDOMEN: Obese. It is nontender. Cannot palpate internal organs. EXTREMITIES: Show no cyanosis, no clubbing, no edema. Left forearm fistula has a palpable thrill. SKIN: Warm, moist and well perfused. She has no other rashes or lesions. MUSCULOSKELETAL: Normal to inspection. Large joints appear normal. There is no evidence of inflamm ation or palpable effusions. NEUROLOGIC: Cranial nerves II-XII are grossly intact. She has decreased sensation to her bilateral feet, but no other sensory deficits. She has 4/5 strength and normal speech pattern. LABORATORY DATA: CBC showed a white count of 10.7, hemoglobin of 10.2, hematocrit of 30.9, platelet count is 96,000. Chemistries showed sodium 133, potassium 5.1, chloride 102, bicarbonate 14, BUN 101 , creatinine 7.04, glucose of 82, calcium was 8.0. Liver functions were completely within normal [place] its. Troponin I was 0.118 with a CK-MB normal at 2.5. IMAGING STUDIES: 1. CT scan of the chest showed a right upper lobe nodular opacity at 8 mm. Metastatic disease canno t be excluded. 2. Abdomen and pelvis CT showed small bilateral pleural effusions. No urinary tract calculi or obst ruction. 3. Chest x-ray showed some pulmonary vascular congestion. ASSESSMENT AND PLAN: 1. Dyspnea and acute hypoxemic respiratory failure, resolved prior to admission. Dr. Smallwood from Nephr ology has been consulted. Expect dialysis in the morning. In the meantime, we will give an 80 mg do se of IV Lasix as the patient does make some urine and takes oral Lasix. We will monitor response. 2. Diabetes mellitus type 2, we will continue her Lantus and continue NovoLog sliding scale and souleymane tor with q.i.d. a.c. and at bedtime Accu-Cheks. The patient will be on a renal diabetic heart health y diet. 3. End-stage renal disease on hemodialysis per Dr. Smallwood. 4. Essential hypertension. Continue home medications. 5. Hyperlipidemia. Continue home medications. 6. Medical nonadherence. The patient was counseled on the need to continue with her regular medicin es all the time and also to show up at dialysis.
[2018-04-22] MEDS: Ondansetron ODT 4 MG TAB PO PRN ×2 (15:26→23:55)
[2018-04-23 04:42] LABS: #Eosinphils 0.1 thou/uL (0.0-0.7); #Lymphocytes 1.3 thou/uL (1.20-3.40); #Monocytes 0.8 thou/uL (0.11-0.59); #Neutrophils 4.4 thou/uL (1.40-6.50); %Basophils 0.4 % (0.0-1.0); %Eosinophils 1.3 % (0.0-10.0); %Lymphocytes 20.3 % (21.0-51.0); %Monocytes 12.1 % (0.0-10.0); Hemoglobin 9.4 g/dL (12.0-16.0); Mean Corpuscular HGB CONC 33.7 g/dL (32.0-36.0); Mean Corpuscular Hemoglobin 33.1 pg (27.0-31.0); Mean Corpuscular Volume 98.3 fL (78.0-98.0); Platelet Count 113 thou/uL (130-400); RBC Distribution Width 14.1 % (11.5-14.5); Red Blood Cell (RBC) Count 2.84 mill/uL (4.20-5.40); White Blood Cell (WBC) Count 6.6 thou/uL (4.8-10.8)
[2018-04-23 04:58] LABS: Anion Gap 19 mmol/L (10-20); BUN (Urea Nitrogen) 50 mg/dL (9.8-20.1); Calc. Creatinine Clearance 15 mL/min (70-130); Carbon Dioxide 21 mmol/L (23-31); Chloride 98 mmol/L (98-107); Estimated GFR-MDRD 8; Glucose 191 mg/dL (80-115); Potassium 4.6 mmol/L (3.5-5.1); Sodium 133 mmol/L (136-145)
[2018-04-23] MEDS: Famotidine 20 MG TAB PO SCH (07:44)
[2018-04-23] MEDS: HYDROcodone/Acetaminophen 5/325 mg Tablet PO PRN (07:44)
[2018-04-23] MEDS: Heparin 5,000 UNITS/ML VIAL SC SCH ×2 (07:45→14:15)
--- NOTE | 2018-04-23 09:37 | PRG ---
DATE OF SERVICE: 04/23/2018 SUBJECTIVE: Ms. Stubbs is a 68-year-old white female who was admitted for generalized malaise and fo r a fall. She also has mild shortness of breath. She did miss her dialysis due to the fact that she was too weak to go to dialysis. She is now referred for rehab placement. She is currently undergoi ng dialysis. I am at the bedside supervising her dialysis. I am attempting maximal fluid removal as tolerated by the patient. OBJECTIVE: VITAL SIGNS: Blood pressure 178/74, heart rate 84, respiratory rate 18, temperature 98.9, pulse oxim etry 93% room air. GENERAL: Awake, alert, comfortable, not in overt distress. SKIN: Adequate turgor. HEENT: She has slightly pale conjunctivae, anicteric sclerae. NECK: No neck mass, no carotid bruits, no JVD. CHEST: No deformities. LUNGS: Decreased breath sounds. HEART: Normal sinus rhythm. No murmur, no gallops, no rubs. ABDOMEN: Globular, soft, nontender, no masses. EXTREMITIES: Positive for edema, no deformities. NEUROLOGIC: Somewhat decreased motor strength lower extremities. MEDICATIONS: 04/23/2018 - Reviewed. LABORATORY DATA: 04/23/2018 - White count 6.6, hemoglobin 9.4, hematocrit 27.9. Sodium 133, potassi um 4.6, chloride 98, carbon dioxide 21, BUN 50, creatinine 5.43, glucose 191, calcium 8.0. ASSESSMENT AND PLAN: 1. End-stage renal disease. Continue current hemodialysis regimen. Max out fluid removal as tolera russel. 2. Anemia. Resume Epogen at 7500 units subcu q. week. 3. Right 0.8 mm right upper lobe nodularity - this will be followed up by her outpatient oncologist. Please note this patient a few years back had a comprehensive workup to rule out any underlying mal ignancy: 4. Generalized malaise - diffuse pain - for rehab placement. We will recheck a phosphorus and PTH level in a.m.
[2018-04-23] MEDS ORDERED: Epoetin (ESRD) 20,000 UNITS/ML SC SCH (10:00)
[2018-04-23 11:53] VITALS: BP 170/72; TEMP 98.3
--- NOTE | 2018-04-23 15:06 | DIS ---
DATE OF ADMISSION: 04/21/2018 DATE OF DISCHARGE: 04/23/2018 PRIMARY CARE PHYSICIAN: Babar Marin M.D. DISCHARGE DIAGNOSES: 1. Acute on chronic diastolic congestive heart failure. 2. End-stage renal disease. 3. Volume overload. 4. Diabetes mellitus type 2 without complications. 5. Hyperlipidemia, chronic. 6. Essential hypertension. CONSULTATIONS: Nephrology, Mihir Smallwood M.D. PROCEDURES: None. HISTORY AND PHYSICAL: Ms. Stubbs is a 68-year-old female with a history as above who presented to [facility] Emergency Department with shortness of breath with a few days of diarrhea. Due to diarrheal illnes s and generalized weakness, she did not go to dialysis on the day of admission and 2 days prior. She was short of breath and had some pulmonary vascular congestion on evaluation and we were called for admission. HOSPITAL COURSE: The patient was seen and examined by me in the Emergency Department, placed initial ly on observation and converted inpatient status due to her CHF status. Renal was consulted and had her set up for urgent dialysis that evening, which she did without difficulty. Breathing improved ma rkedly, but she was still feeling very weak. The following morning, she was screened by rehab and se en by PT, OT and ultimately accepted with a bed available this afternoon for transfer to rehabilitati on inpatient. She denies any other current complaints, was feeling better. She was discharged to inpatient rehab in stable condition. PHYSICAL EXAMINATION: The patient was seen and examined on the day of discharge. Discharge plan and disposition were discussed with the patient [id number] at the bedside. DISCHARGE MEDICATIONS: 1. Zofran 4 mg p.o. q.6 hours p.r.n. nausea. 2. Atorvastatin 40 mg p.o. at bedtime. 3. Lasix 80 mg daily. 4. Hydralazine 50 mg p.o. b.i.d. 5. NovoLog sliding scale. 6. units subcu q.a.m. 7. Metoprolol tartrate 50 mg p.o. b.i.d. 8. Prednisone 10 mg daily. 9. Promethazine 25 mg p.o. q.6 hours p.r.n. nausea. 10. Tizanidine 2 mg p.o. b.i.d. p.r.n. muscle spasm. DISCHARGE CONDITION: Stable. DISPOSITION: Will be discharged to inpatient rehabilitation. DISCHARGE ACTIVITY: As tolerated. DISCHARGE DIET: Heart healthy diabetic diet ordered. FOLLOWUP APPOINTMENTS: 1. Dr. Marin within a week. 2. Nephrology for dialysis 3 times a week.
[2018-04-23] MEDS: Ondansetron ODT 4 MG TAB PO PRN (15:08)
--- NOTE | 2018-04-24 17:32 | EKG ---
Test Reason : Blood Pressure : / mmHG Vent. Rate : 073 BPM Atrial Rate : 073 BPM P-R Int : 186 ms QRS Dur : 082 ms QT Int : 398 ms P-R-T Axes : 074 041 065 degrees QTc Int : 438 ms Normal sinus rhythm Possible Left atrial enlargement Borderline ECG Confirmed by SURAJ MCWILLIAMS M.D. ([id number]), continuity editor SHUN SANDRA ([id number]) on 04/24/2018 5:31:56 PM Referred By: Confirmed By:SURAJ MCWILLIAMS M.D.
== END 2018-04-23 15:11 | DRG 291 ==
LOC: ERS 10:35 → 2SW 21:45 → OBSVTOIN 04-23 13:29
PROVIDERS: ADMIT Internal Medicine Infectious Disease; ATTEND Internal Medicine Infectious Disease
PROC: 5A1D70Z Performance of Urinary Filtration, Intermittent, Less than 6 Hours Per Day (ICD-10-PCS; principal; 2018-04-23)
DX: I13.2 Hypertensive heart and chronic kidney disease with heart failure and with stage 5 chronic kidney disease, or end stage renal disease (principal); I50.33 Acute on chronic diastolic (congestive) heart failure; N18.6 End stage renal disease; E11.22 Type 2 diabetes mellitus with diabetic chronic kidney disease; Z99.2 Dependence on renal dialysis; E78.5 Hyperlipidemia, unspecified; D63.1 Anemia in chronic kidney disease; R91.1 Solitary pulmonary nodule; M06.9 Rheumatoid arthritis, unspecified; E66.9 Obesity, unspecified; Z68.31 Body mass index [BMI] 31.0-31.9, adult; E11.42 Type 2 diabetes mellitus with diabetic polyneuropathy; J44.9 Chronic obstructive pulmonary disease, unspecified
CPT/HCPCS: 36415; 36416; 71045; 71250; 74176; 80048; 80053; 82553; 84484; 85025; 90935; 93005; 96374; 96375; 96376; G0257; G8978-GP-CL; G8979-GP-CJ; J1644; J1940; J2270; J2405; Q0162; Q4081

== ENCOUNTER 2018-05-27 04:46 | Inpatient (IN) | payer MEDICARE, OTHER ==
[2018-05-27 06:17] LABS: #Lymphocytes 0.4 thou/uL (1.20-3.40); #Monocytes 0.2 thou/uL (0.11-0.59); #Neutrophils 8.6 thou/uL (1.40-6.50); %Eosinophils 0.1 % (0.0-10.0); %Lymphocytes 4.5 % (21.0-51.0); %Monocytes 2.3 % (0.0-10.0); %Neutrophils 93.1 % (42.0-75.0); Mean Corpuscular HGB CONC 31.3 g/dL (32.0-36.0); Mean Corpuscular Hemoglobin 31.9 pg (27.0-31.0); Mean Platelet Volume 9.7 fL (7.4-10.4); Platelet Count 140 thou/uL (130-400); RBC Distribution Width 15.1 % (11.5-14.5); Red Blood Cell (RBC) Count 2.83 mill/uL (4.20-5.40); White Blood Cell (WBC) Count 9.3 thou/uL (4.8-10.8)
[2018-05-27 06:30] LABS: Base Excess-Venous -5.9 mmol/L (0 (+/- 2.5)); Bicarbonate (HCO3v) 18.7 mmol/L (1.0-85.0); CO2 Tension (PvCO2) 32.5 mmHg (41.0-51.0); Calcium, Ionized 0.91 mmol/L (1.12-1.32); Hemoglobin - Calc 9.7 g/dL (12.0-18.0); O2 Tension (PvO2) 86.6 mmHg (35.0-45.0); Potassium 7.3 mmol/L (3.4-4.7); T. Carbon Dioxide 19.7 mmol/L (1.0-85.0); pH (Venous) 7.368 (7.35-7.45); vO2 Saturation-calc 96.4 % (94-98)
[2018-05-27 06:34] LABS: ALT (SGPT) 29 U/L (8-55); AST (SGOT) 17 U/L (5-34); Albumin 3.5 g/dL (3.4-4.8); Alkaline Phosphatase 150 U/L (40-150); Anion Gap 20 mmol/L (10-20); BUN (Urea Nitrogen) 97 mg/dL (9.8-20.1); Bilirubin, Total 0.8 mg/dL (0.2-1.2); Calc. Creatinine Clearance 0 mL/min (70-130); Calcium 8.2 mg/dL (7.8-10.44); Carbon Dioxide 20 mmol/L (23-31); Chloride 88 mmol/L (98-107); Estimated GFR-MDRD 5; Globulin 3.4 g/dL (2.4-3.5); Protein, Total 6.9 g/dL (6.0-8.3); Sodium 120 mmol/L (136-145)
[2018-05-27 06:39] LABS: Glucose 619 mg/dL (80-115); Potassium 7.6 mmol/L (3.5-5.1)
[2018-05-27] MEDS ORDERED: Insulin Regular 300 UNITS/3 ML VIAL ONE (06:50)
[2018-05-27] MEDS ORDERED: Calcium Chloride 1 GM/10 ML Abboject SYRINGE ONE (06:50)
[2018-05-27] MEDS ORDERED: Morphine 4 MG/ML VIAL ONE (07:21)
--- NOTE | 2018-05-27 07:48 | RAD ---
LEFT HIP RADIOGRAPHS 2 VIEWS: DATE: 05/27/18. PROVIDED CLINICAL HISTORY: Left lower extremity pain status post fall. FINDINGS: There is a prominently displaced intratrochanteric left proximal femoral fracture. Left hip joint sp yaya appears preserved. No additional fracture is evident. IMPRESSION: Displaced intratrochanteric left proximal femoral fracture. POS: JEWELL
--- NOTE | 2018-05-27 07:50 | RAD ---
LEFT ANKLE RADIOGRAPHS 3 VIEWS: DATE: 05/27/18. PROVIDED CLINICAL HISTORY: Pain. FINDINGS: Comparison is made with study dated 10/28/17. There is obliquely oriented Meyers-B distal fibular frac ture which appears ununited and similar to the prior study. No evidence for an acute fracture. Alig nment appears anatomic. Joint spaces appear preserved. Vascular calcifications are seen. Plantar c alcaneal enthesophyte formation is noted. IMPRESSION: 1. Ununited chronic Meyers-B distal fibular fracture. 2. No evidence for an acute osseous abnormality. If there is persistent clinical concern, conservat babita management and followup imaging are advised. POS: JEWELL
--- NOTE | 2018-05-27 07:56 | RAD ---
PORTABLE CHEST: DATE: 05/27/18. PROVIDED CLINICAL HISTORY: Fall with hip fracture. FINDINGS: Comparison 04/21/18. Cardiac silhouette remains enlarged. Vascular calcification involves the aortic arch. Subsegmental atelectasis or scarring involves the left lower lung zone. Lungs appear otherwi se clear. No pleural fluid or pneumothorax apparent. IMPRESSION: Cardiomegaly without evidence for an acute cardiopulmonary process. POS: MURIEL
[2018-05-27] MEDS ORDERED: Albuterol Sulfate 2.5 mg/3 ml Neb ONE (08:57)
[2018-05-27] MEDS ORDERED: Albuterol Sulfate 2.5 mg/0.5 ml Neb ONE (08:57)
[2018-05-27] MEDS ORDERED: Morphine 2 MG/ML SYRINGE ONE (09:22)
--- NOTE | 2018-05-27 10:14 | CON ---
DATE OF CONSULTATION: 05/27/2018 HISTORY OF PRESENT ILLNESS: Ms. Stubbs is a 68-year-old white female with ESRD who was admitted for a fall. X-ray of the left hip showed a displaced intertrochanteric left proximal femoral fracture. Chest x-ray shows no CHF. She was also noted to be significantly hyperkalemic with a potassium 7.6. Please note she did not receive her dialysis. She had to undergo an AV fistulogram due to a clotte d AV graft yesterday. She voices no new complaints today except for the left hip joint pain. We are being consulted for emergent hemodialysis. REVIEW OF SYSTEMS: No shortness of breath, no chest pain. Positive for left hip joint status post f all, no syncopal episode, no productive cough, no fever or chills, no gross hematuria, no dysuria, no urinary frequency. No chest pain, no headache, no sore throat. Appetite and energy level is fair. HOME MEDICATIONS: Tizanidine 2 mg q.12 hours p.r.n., prednisone 10 mg daily, hydralazine 50 mg p.o. b.i.d., metoprolol tartrate 50 mg b.i.d., Traceba 50 units in the morning and 15 units at bedtime p.r .n., furosemide 80 mg daily, atorvastatin 40 mg at bedtime. ALLERGIES: INVOKANA, CARVEDILOL, IODINE, PENICILLIN, and SULFA. TRAUMA: Recently status post fall with left intertrochanteric fracture. IMMUNIZATIONS: Up to date. HOSPITALIZATIONS: Please see past medical history. PAST MEDICAL HISTORY: 1. ESRD from presumed diabetic nephropathy. 2. Type 2 diabetes mellitus. 3. Status post vasculitis. 4. Chronic obstructive pulmonary disease. 5. Hyperlipidemia. 6. Status post anasarca. 7. Diabetic neuropathy. 8. History of decreased visual acuity. PAST SURGICAL HISTORY: 1. Status post AV fistula/graft placement. 2. Status post colonoscopy. 3. Status post appendectomy. 4. Status post femoral artery angioplasty. 5. Status post bilateral tubal ligation. 6. Status post cuffed dialysis catheter placement. FAMILY HISTORY: No family history of ESRD. SOCIAL HISTORY: The patient is and lives in [place]. 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 Education; high school with some college courses. Sedentary lifestyle. Status post blo od transfusion. No IV drug abuse. Alcohol; none. Smoked for 5 years, one-third pack a day. FAMILY HISTORY: No family history of ESRD. PHYSICAL EXAMINATION: VITAL SIGNS: Blood pressure is 130/70, heart rate 70. GENERAL: Awake, alert, comfortable, not in overt distress. SKIN: Adequate turgor. HEENT: She has slightly pale conjunctivae, anicteric sclerae. NECK: No neck mass, no carotid bruits, no JVD. CHEST: No deformities. LUNGS: Clear breath sounds, no wheezing, no crackles. HEART: Normal sinus rhythm. No murmur, no gallops or rubs. ABDOMEN: Globular, soft, nontender, no masses. EXTREMITIES: Positive for edema. NEUROLOGIC: Awake, oriented to 3 spheres. Moving all extremities. No tremors, no asterixis, no maria guadalupe dee. LABORATORY DATA: 05/27/2018 - White count 9.3, hemoglobin 9. 05/27/2018 - Sodium was 122, potassium was 7.3, chloride 88, carbon dioxide 20, BUN 97, creatinine 7. 8, glucose 619, calcium 8.2, AST 17, albumin is 3.5. Chest x-ray; no CHF, no infiltrates. X-ray of the left hip joint shows displaced intertrochanteric left proximal femoral fracture. X-ray of the left ankle showed ununited Meyers B distal fibular fract ure, no evidence of acute fracture. ASSESSMENT AND PLAN: 1. End-stage renal disease. We will do an emergency dialysis due to the hyperkalemia. We will do a 3.5 hour dialysis. Fluid removal only as tolerated. We will then resume the patient back on a , Thursday, Thursday dialysis regimen. 2. Hyperkalemia, elevated potassium 7.3. Emergent hemodialysis. Use a 1-0 potassium bath in the fi rst hour, then a 2-0 potassium bath in the next 2 and a half hours. 3. Left proximal femoral fracture - Orthopedic consultation. 4. I agree with current management. Continue supportive care. Recheck base met and CBC in a.m.
[2018-05-27] MEDS ORDERED: Clindamycin/D5W 900 MG in Premix Bag 1 BAG IVPB SCH (12:30)
[2018-05-27] MEDS ORDERED: HYDROcodone/Acetaminophen 5/325 mg Tablet PO PRN ×2 (12:43)
[2018-05-27] MEDS ORDERED: traMADol HCl 50 MG TAB PO PRN ×3 (12:44→14:43)
[2018-05-27 12:50] VITALS: BMI 32.2
--- NOTE | 2018-05-27 13:29 | CON ---
DATE OF CONSULTATION: 05/27/2018 REQUESTING PHYSICIAN: Trauma Services. CONSULTING PHYSICIAN: Miles Byrne M.D. REASON FOR CONSULTATION: Left hip fracture. HISTORY OF PRESENT ILLNESS: This is a 68-year-old female who states that she fell during the night l ast night while transferring herself from her scooter to her bed. She states she has been gradually getting weaker over the last couple of days to a week. She felt that her leg buckled beneath her and she fell to the floor landing on her left side. She summoned her son for help who called for an amb ulance and she was brought by ground transport to our emergency facility. Emergency Department rhoda p showed a left intertrochanteric femur fracture. We have been consulted for this reason. Currently , the patient is seen at bedside in the dialysis suite. She has been on hemodialysis for the last 2 years due to hypertension and diabetes. The patient states that she has had overall declining health in the last couple of months. The patient was recently released from inpatient rehabilitation on after hospital admission here at our facility for what the patient states is ongoing bowel issues . With regards to her fall, the patient denies any other injuries. She denies hitting her head. Pavel carrero does report a history of diabetic neuropathy. She states that she normally has decreased sensation in her left lower leg. She denies any numbness or tingling. She denies any history of previous hip surgery. PAST MEDICAL HISTORY: Significant for vasculitis, neuropathy, rheumatoid arthritis, osteoarthritis. The patient is legally blind, diabetes, hyperlipidemia, hypertension, asthma, anasarca, end-stage re nal disease on hemodialysis. PAST SURGICAL HISTORY: Significant for cataract surgery, tubal ligation and an angioplasty balloon. SOCIAL HISTORY: The patient denies any alcohol, tobacco or illicit drug use. She lives at home with her as well as her son who is a single father. They live in [place]. FAMILY HISTORY: Reviewed and noncontributory. REVIEW OF SYSTEMS: A 12-point review of systems was conducted and otherwise negative except for as s tated above. PHYSICAL EXAMINATION: VITAL SIGNS: From the Emergency Department include blood pressure of 130/65, pulse of 66, respirator y rate of 13, temperature of 97.9 degrees Fahrenheit. GENERAL: The patient is awake and alert. She is pleasant and cooperative with exam today. The jhoana ent is currently receiving hemodialysis. HEENT: Head is normocephalic, atraumatic. NECK: Supple. Trachea midline. RESPIRATORY: Breathing is nonlabored. EXTREMITIES: The left lower extremity was evaluated. Skin is free of lesions and rashes or signs of injury to the left hip and thigh. Left lower extremity is externally rotated. It does not appear s hortened. The patient is able to move her toes. She reports decreased sensation in the entire left lower extremity. Capillary refill is 2 seconds. The remainder of extremity exam is unremarkable for any signs of other injuries. RADIOGRAPHIC FINDINGS: Reviewed including 2 views of the left hip that show evidence of a displaced intertrochanteric femur fracture. ASSESSMENT: Left intertrochanteric femur fracture. PLAN: At this point, I have discussed treatment options with the patient including surgical option f or a TFN nail to the intertrochanteric femur fracture in order to restore function and preserve anato renetta alignment. The patient states that she normally does use assistance at home for ambulation. She normally uses a walker and/or a cane, but has recently been using a scooter due to weakness. She fi nished dialysis today, but will return back to the dialysis suite tomorrow after surgery to get back on her normal Thursday, Thursday and Thursday schedule. We will plan for surgical intervention tomorrow morning. Risks, benefits and alternatives discussed at length with the patient. She verbalizes und erstanding and is amenable to this plan of care. Case discussed with Dr. Byrne. We will plan to proceed with surgery tomorrow morning.
[2018-05-27] MEDS ORDERED: Dextrose 5% in Water 1,000 ML IV PRN (13:53)
[2018-05-27] MEDS ORDERED: Dextrose 50% Abboject 50 ML SYRINGE SLOW IVP PRN (13:53)
[2018-05-27] MEDS: tiZANidine HCl 4 MG TAB PO PRN (14:37)
[2018-05-27] MEDS: Morphine 2 MG/ML SYRINGE SLOW IVP PRN ×3 (14:41→23:24)
--- NOTE | 2018-05-27 15:28 | EKG ---
Test Reason : AFTER DIALYSIS Blood Pressure : / mmHG Vent. Rate : 086 BPM Atrial Rate : 086 BPM P-R Int : 202 ms QRS Dur : 088 ms QT Int : 390 ms P-R-T Axes : 070 002 139 degrees QTc Int : 466 ms Normal sinus rhythm Abnormal ECG When compared with ECG of 27-MAY-2018 06:18, (Unconfirmed) Premature ventricular complexes are no longer Present [place] interval has decreased Right bundle branch block is no longer Present Confirmed by JOSE MCQUEEN, SSahra ([id number]) on 05/27/2018 3:27:45 PM Referred By: EMILEE Confirmed By:DR. Elizabeth GARCIA MD
[2018-05-27 15:30] LABS: Anion Gap 15 mmol/L (10-20); BUN (Urea Nitrogen) 35 mg/dL (9.8-20.1); Calc. Creatinine Clearance 23 mL/min (70-130); Calcium 8.5 mg/dL (7.8-10.44); Carbon Dioxide 28 mmol/L (23-31); Chloride 96 mmol/L (98-107); Estimated GFR-MDRD 13; Glucose 251 mg/dL (80-115); Potassium 4.7 mmol/L (3.5-5.1); Sodium 134 mmol/L (136-145)
[2018-05-27] MEDS: Acetaminophen 325 MG TAB PO SCH ×2 (17:00→23:24)
[2018-05-27] MEDS: traMADol HCl 50 MG TAB PO SCH ×2 (17:00→21:15)
[2018-05-27] MEDS: HumaLOG 300 UNITS/3 ML VIAL SC PRN ×2 (17:01→21:19)
--- NOTE | 2018-05-27 20:47 | HP-2 ---
DATE OF SERVICE: 05/27/2018 CONSULTED BY: Emergency department. SURGERY ATTENDING: Dr. Alexey Zacarias. CHROMIUM PLATER: Dr. Smallwood. MECHANICAL DESIGN ENGINEER PRODUCTS: Dr Dobbins ([place], [place]) was last seen in unknown years ago. HISTORY OF PRESENT ILLNESS: Ms. Stubbs is a 68-year-old female with a past medical history of end-stage renal disease, diabetes, rheumatoid arthritis, osteoarthritis, vasculitis, autoimmune in nature, CHF with an unknown ejection fraction, asthma questionable, hypertension and blind, who resides in [place] , gets about in a wheelchair and walker, has some difficulty with mobilization and receives dialysis Thursday, Thursday, Thursday, who presented to the emergency department today via EMS with a chief complaint of left hip pain. The patient states that she fell about 2:00 this morning as she was trying to get up a mechanical fall. She was noted on x-ray to have left intertrochanteric proximal femur fracture. She was also noted to be hyperkalemic, have EKG changes and hyperglycemic with no evidence of DKA on presentation. The patient was given insulin D50, albuterol and calcium in the emergency department. Emergent dialysis was arranged. She underwent dialysis prior to being transferred to the surgical wang. Patient has been seen by Orthopedics and they recommend ORIF versus arthroplasty of the left hip for tomorrow. Hyperglycemia was noted, no serum ketones and marcell reports doubling her prednisone yesterday. The patient states that she has no chest pain, no shortness of breath, no nausea, no vomiting, no trouble with her appetite and normal bowel movements. I have seen the patient on arrival to the surgical wang. She states that she is in pain in the left hip that is her only complaint at this time. Again, she has no chest pain, no difficulty breathing. I have repeated an EKG and her EKG changes have grossly improved at this time. I have requested a stat BMP to be pulled. She is on pain control and Orthopedics has seen the patient. She has been told that she has some coronary artery disease, a 40% blockage, but has not required stent placement in the past. REVIEW OF SYSTEMS: Pertinent positive and negative per HPI, otherwise is regarded as negative. PAST MEDICAL HISTORY: 1. Significant for ESRD, on hemodialysis Thursday, Thursday, Thursday with Dr. Smallwood. 2. Diabetes. 3. Rheumatoid arthritis. 4. Osteoarthritis. 5. Vasculitis. 6. Congestive heart failure with an unknown EF. 7. Possible asthma. 8. Hypertension. 9. Blindness. PAST SURGICAL HISTORY: Left fistula placement. MEDICATIONS: [facility], but she does state that she takes prednisone daily and increased to 20 mg yesterday after her thrombectomy. Tresiba 50 units daily and NovoLog sliding scale insulin. SOCIAL HISTORY: The patient lives in [place]. She is . She lives with her and son. She smoked for 3 years, greater than 25 years ago, but is currently a nonsmoker. No tobacco. Socially drinks alcohol on occasion. She uses a walker and a wheelchair to get about. She uses no other illicit drugs and is currently disabled, has not worked since she was 56. FAMILY HISTORY: Significant for diabetes in mother and father and asthma in her brother. IV access at this time is right upper extremity, peripheral IV. PHYSICAL EXAMINATION: VITAL SIGNS: Blood pressure is 124/75, respiratory rate is 20, pulse is 86, temperature is 97.7. She is 96% on room air. GENERAL: A 68-year-old female lying supine in bed and in moderate distress only because of pain, but is nontoxic appearing. HEENT: Normocephalic, atraumatic. NECK: Trachea is midline. She has no JVD appreciated and dry mucous membranes. RESPIRATORY: Equal rise and fall. Bilateral breath sounds are clear to auscultation upper and lower bilaterally. CARDIOVASCULAR: Regular rate and rhythm. She does have a 2-3/6 systolic murmur appreciated. She has bipedal edema in the lower extremities that is at her baseline according to her. No edema in the upper extremities and strong peripheral pulses. She does have a thrill noted to the left upper extremity about her fistula with no bleeding noted. ABDOMEN: Soft and nontender. Pelvis is stable, but she does have pain to her left hip. EXTREMITIES: Lower extremities are edematous. She does report a neuropathy and she is unable to feel below the knees. Extremities are warm and she has trace hair noted lower. She has some pain to the left hip. NEUROLOGIC: Alert and oriented to person, place, time, and event, just only findings of the neuropathy to lower extremities which is normal for the patient. PSYCHIATRIC: Normal mood and affect. SKIN: [place], warm and dry. DIAGNOSTIC DATA: An initial EKG taken this morning at 6:15 shows a sinus rhythm with a left bundle branch block. She has peaked T waves, widened QRS and a strain pattern is appreciated. Repeat EKG now at 13:13 shows a sinus rhythm with ST depression nearly globally. The peak T waves have greatly improved. QRS duration is 88 milliseconds, QTC has improved to 466. She has no ectopy and no STEMI is appreciated. LABORATORY DATA: Today shows a white blood cell count 9.3, platelets 104, hemoglobin and hematocrit 9.0 and 28.8 respectively. Initial chemistry shows sodium of 120. Chloride is 88, carbon dioxide is 20, BUN is 97, creatinine 7.8 with a glucose of 619. Liver function is unremarkable and anion gap of 20, beta hydroxybutyrate 0.18. Blood gas showed a pH of 7.36 with a base excess of negative 5.9. RADIOLOGIC REPORTS: A left hip x-ray shows left intertrochanteric fracture. A chest x-ray shows cardiomegaly and an ankle x-ray of the left ankle shows chronic Meyers B fibular fracture. No other acute osseous abnormalities per radiology read. ASSESSMENT: 1. Acute left intertrochanteric hip fracture. 2. Hyperkalemia, likely secondary to end-stage renal disease. 3. End-stage renal disease, needing emergent dialysis today. 4. Hyperglycemia without evidence of diabetic ketoacidosis. 5. Acute traumatic pain. 6. History of osteoarthritis, rheumatoid arthritis, vasculitis and congestive heart failure. PLAN: 1. We will admit the patient to the surgical wang after dialysis. 2. Repeat BMP now. 3. Obtain EKG as noted above, has greatly improved. 4. Daily CMP and BMP. 5. Pain control. Additional 2 mg of morphine given now. Patient was just given [place] and I will schedule tramadol to try to limit opioid narcotics. 6. N.p.o. after midnight. 7. Withhold fluids. 8. Bowel regimen per protocol. 9. Orthopedics has been consulted and appreciate recommendations. 10. 30 units of long-acting insulin daily as well as sliding scale insulin. 11. Point of care glucose q.i.d. a.c. and at bedtime. Diet will be carb control and n.p.o. after midnight. 12. Activity: Bed rest. 13. FULL CODE. 14. Access, or peripheral IVs. 15. Prophylaxis will be SCDs and Pepcid renally dosed. I will provide pharmacological deep venous thrombosis prophylaxis postoperatively. DISPOSITION: Surgical wang. I have updated the patient at the bedside of coordinating care with the surgery wang, the emergency department physician and the patient was seen and evaluated with Dr. Zacarias and this plan can be updated as needed. MTDD
[2018-05-27] MEDS: Atorvastatin Calcium 40 MG TAB PO SCH (21:15)
[2018-05-27] MEDS: Carvedilol 6.25 MG TAB PO SCH (21:18)
[2018-05-27] MEDS: Metoprolol Tartrate 25 MG TAB PO SCH (21:18)
[2018-05-27] MEDS: hydrALAZINE 25 MG TAB PO SCH (21:18)
[2018-05-27] MEDS: Insulin Glargine 30 UNITS in Pre-Filled Syringe 1 EACH SC SCH (21:18)
[2018-05-28] MEDS: traMADol HCl 50 MG TAB PO SCH ×4 (01:18→20:18)
[2018-05-28] MEDS: Acetaminophen 325 MG TAB PO SCH ×4 (05:09→23:20)
[2018-05-28 05:15] LABS: Anion Gap 16 mmol/L (10-20); BUN (Urea Nitrogen) 46 mg/dL (9.8-20.1); Calc. Creatinine Clearance 17 mL/min (70-130); Calcium 8.3 mg/dL (7.8-10.44); Carbon Dioxide 26 mmol/L (23-31); Chloride 97 mmol/L (98-107); Estimated GFR-MDRD 9; Glucose 133 mg/dL (80-115); Potassium 5.3 mmol/L (3.5-5.1); Sodium 134 mmol/L (136-145)
[2018-05-28 05:42] LABS: #Lymphocytes 0.9 thou/uL (1.20-3.40); #Monocytes 1.1 thou/uL (0.11-0.59); #Neutrophils 7.8 thou/uL (1.40-6.50); %Basophils 0.4 % (0.0-1.0); %Eosinophils 0.2 % (0.0-10.0); %Lymphocytes 9.5 % (21.0-51.0); %Monocytes 11.1 % (0.0-10.0); %Neutrophils 78.7 % (42.0-75.0); Hemoglobin 8.3 g/dL (12.0-16.0); Mean Corpuscular HGB CONC 32.3 g/dL (32.0-36.0); Mean Corpuscular Hemoglobin 32.8 pg (27.0-31.0); Mean Platelet Volume 9.1 fL (7.4-10.4); PLT Morphology Comment Appears Decreased; Platelet Count 117 thou/uL (130-400); RBC Distribution Width 15.2 % (11.5-14.5); Red Blood Cell (RBC) Count 2.53 mill/uL (4.20-5.40); White Blood Cell (WBC) Count 9.9 thou/uL (4.8-10.8)
[2018-05-28] MEDS: Morphine 2 MG/ML SYRINGE SLOW IVP PRN ×2 (07:09→14:51)
[2018-05-28] MEDS: Carvedilol 6.25 MG TAB PO SCH (07:09)
[2018-05-28] MEDS: Metoprolol Tartrate 25 MG TAB PO SCH (07:09)
[2018-05-28] MEDS: Famotidine 20 MG TAB PO SCH (08:06)
[2018-05-28] MEDS: hydrALAZINE 25 MG TAB PO SCH ×2 (08:06→20:19)
[2018-05-28] MEDS ORDERED: Ondansetron HCl/PF 4 MG/2 ML Vial ONE ×2 (09:37→15:42)
[2018-05-28] MEDS ORDERED: HYDROmorphone 0.5 MG/0.5 ML SYRINGE ONE (09:51)
[2018-05-28] MEDS ORDERED: HYDROmorphone 2 MG/ML VIAL ONE ×2 (11:37→12:17)
[2018-05-28] MEDS ORDERED: Clindamycin/D5W 900 mg/50 ml Premix Bag ONE (11:40)
--- NOTE | 2018-05-28 13:03 | OP ---
DATE OF PROCEDURE: 05/28/2018 OPERATION: Left intertrochanteric femur fracture, intramedullary nail. PREOPERATIVE DIAGNOSIS: Left intertrochanteric femur fracture. POSTOPERATIVE DIAGNOSIS: Left intertrochanteric femur fracture. COMPLICATIONS: None. ESTIMATED BLOOD LOSS: Minimal. SURGEON: Miles Byrne M.D. ACCESSIBILITY LIFT TECHNICIAN: Robles George PA-C. IMPLANTS: Synthes short trochanteric nail, 11 mm. INDICATIONS: Ms. Stubbs is a 68-year-old female, who fell. She fractured her proximal femur. She w as indicated for intramedullary nail to restore anatomic alignment and promote healing. Risks have b een reviewed in detail. She elected to proceed with the operation. DESCRIPTION OF PROCEDURE: We began the procedure by making an incision proximal to the trochanter. We then dissected down to the tip of the trochanter. A guidewire was inserted. This was evaluated w ith intraoperative x-ray. We overdrilled the guidewire. We then inserted an 11-mm Synthes trochante cici nail. At this point, we placed a guidewire into the center position of the femoral head, after r educing the fracture appropriately. We overdrilled the guidewire and then impacted a helical blade. This was placed into a dynamic position. We then placed a distal cross-lock screw. At this point, we took final images. We thoroughly irrigated. We closed all wounds in layers. A sterile dressing was applied. The patient was taken to the recovery room in good condition.
[2018-05-28] MEDS ORDERED: Ondansetron HCl/PF 4 MG/2 ML Vial IVP PRN (13:10)
[2018-05-28] MEDS ORDERED: Promethazine HCl 25 MG/ML VIAL IM PRN (13:10)
[2018-05-28] MEDS ORDERED: Promethazine HCl 25 MG/ML VIAL SLOW IVP PRN (13:10)
[2018-05-28] MEDS ORDERED: Fentanyl 100 MCG/2 ML VIAL ONE (13:12)
[2018-05-28] MEDS: Clindamycin/D5W 900 MG in Premix Bag 1 BAG IVPB SCH ×2 (14:15→21:21)
[2018-05-28] MEDS: traMADol HCl 50 MG TAB PO PRN (14:22)
--- NOTE | 2018-05-28 14:23 | RAD ---
LEFT HIP 2 VIEWS: Date: 05/28/18 HISTORY: Intraoperative films. FINDINGS: These films show fixation of the intertrochanteric fracture with gamma nail and short stem intramedul pascual jonny. IMPRESSION: Open reduction and internal fixation of intertrochanteric fracture. POS: JEWELL
[2018-05-28] MEDS ORDERED: PHENYLEPHRINE-NS 100 MCG/ML 10 ML SYRINGE ONE (15:42)
[2018-05-28] MEDS ORDERED: ePHEDrine/0.9% NaCl/PF SYRINGE 50 mg/10 ml ONE (15:42)
[2018-05-28] MEDS ORDERED: Succinylcholine Chloride 20 MG/ML 10 ml SYRINGE FS ONE (15:42)
[2018-05-28] MEDS ORDERED: PROPOFOL 200 MG/20 ML VIAL ONE (15:42)
--- NOTE | 2018-05-28 20:15 | PRG ---
DATE OF SERVICE: 05/28/2018 SUBJECTIVE: This is a 68-year-old female status post fall from a wheelchair. The patient was found to have a left hip fracture. She has multiple medical comorbidities, but was medically stable and cl eared for the OR this morning. She is now postop day 0 status post left IM nail. The patient is sánchez ferguson seen and evaluated during hemodialysis. Upon my evaluation, she vocalized no complaint. OBJECTIVE: VITAL SIGNS: Last recorded vital signs, temperature 97.7, pulse 71, respirations 20, O2 sat 100% on 2 liters nasal cannula, blood pressure 133/74. GENERAL: Elderly appearing female in no acute distress, resting in bed. PULMONARY: Normal work of breathing. Symmetric rise. CARDIOVASCULAR: Regular rate and rhythm. GASTROINTESTINAL: Abdomen is soft, nontender, nondistended. MUSCULOSKELETAL: Moves all extremities x4. NEUROLOGIC: No gross focal deficit is noted. LABORATORY FINDINGS: WBC 9.9, hemoglobin 8.3, hematocrit 25.7, platelet count 117. Sodium 134, pota ssium 5.3, chloride 97, carbon dioxide 26, BUN 46, creatinine 4.75, glucose 133. ASSESSMENT: 1. Status post mechanical fall. 2. Left hip fracture, postop day 0, intramedullary nail. 3. End-stage renal disease on Thursday, Thursday, Thursday dialysis with Dr. Smallwood. 4. Diabetes with hyperglycemia. 5. Hyperkalemia, mild. 6. History of hypertension. 7. History of blindness. 8. History of osteoarthritis. PLAN: Continue regular postoperative care tomorrow. The patient should have a.m. labs. HD per Neph rology. Postoperative PT and OT. Postoperative pain management with p.o. analgesics. Plan of care was discussed with the patient at bedside and all questions were answered at the time of this dictati on. The patient has been discussed with trauma attending.
[2018-05-28] MEDS: Atorvastatin Calcium 40 MG TAB PO SCH (20:18)
[2018-05-28] MEDS ORDERED: Carvedilol 6.25 MG TAB PO SCH (21:00)
[2018-05-28] MEDS ORDERED: Carvedilol 3.125 MG TAB PO SCH (21:00)
[2018-05-28] MEDS: Insulin Glargine 30 UNITS in Pre-Filled Syringe 1 EACH SC SCH (21:10)
[2018-05-29] MEDS: Acetaminophen 325 MG TAB PO SCH (05:34)
[2018-05-29 06:02] LABS: #Lymphocytes 0.7 thou/uL (1.20-3.40); #Monocytes 0.8 thou/uL (0.11-0.59); #Neutrophils 5.5 thou/uL (1.40-6.50); %Eosinophils 0.4 % (0.0-10.0); %Lymphocytes 10.2 % (21.0-51.0); %Monocytes 11.6 % (0.0-10.0); %Neutrophils 77.7 % (42.0-75.0); Hemoglobin 7.7 g/dL (12.0-16.0); Mean Corpuscular HGB CONC 32.4 g/dL (32.0-36.0); Mean Corpuscular Hemoglobin 33.1 pg (27.0-31.0); Mean Platelet Volume 9.3 fL (7.4-10.4); Platelet Count 97 thou/uL (130-400); RBC Distribution Width 14.9 % (11.5-14.5); Red Blood Cell (RBC) Count 2.33 mill/uL (4.20-5.40); White Blood Cell (WBC) Count 7.1 thou/uL (4.8-10.8)
[2018-05-29 06:10] LABS: Anion Gap 15 mmol/L (10-20); BUN (Urea Nitrogen) 28 mg/dL (9.8-20.1); Calc. Creatinine Clearance 24 mL/min (70-130); Calcium 7.7 mg/dL (7.8-10.44); Carbon Dioxide 28 mmol/L (23-31); Chloride 98 mmol/L (98-107); Estimated GFR-MDRD 13; Glucose 144 mg/dL (80-115); Phosphorus 4.8 mg/dL (2.3-4.7); Potassium 4.6 mmol/L (3.5-5.1); Sodium 136 mmol/L (136-145)
[2018-05-29] MEDS: Famotidine 20 MG TAB PO SCH (08:29)
[2018-05-29] MEDS: Carvedilol 3.125 MG TAB PO SCH ×2 (08:48→20:50)
[2018-05-29] MEDS: hydrALAZINE 25 MG TAB PO SCH ×2 (08:48→20:50)
[2018-05-29] MEDS: traMADol HCl 50 MG TAB PO SCH ×3 (08:49→20:48)
--- NOTE | 2018-05-29 09:43 | PRG ---
DATE OF SERVICE: 05/29/2018 SUBJECTIVE: Ms. Stubbs is a 68-year-old white female with known history of ESRD and was admitted sec ondary to a fall with subsequent findings of a left intertrochanteric femoral fracture. We are consu lted for followup for her maintenance hemodialysis. She is doing well with the current dialysis barry men. Tolerating said treatment. In the interim, patient has had a left intertrochanteric femoral fr acture - with intramedullary nailing. This morning, she is complaining of postop pain. No chest nayan n or shortness of breath. PHYSICAL EXAMINATION: VITAL SIGNS: Blood pressure is 107/56, heart rate 76, respiratory rate 18, temperature 99, pulse ox ranging from 85%-90%. GENERAL EXAM: Noted to be awake, supine, comfortable, not in overt distress. SKIN: Adequate turgor. HEENT: She has pale conjunctivae, anicteric sclerae. NECK: No neck mass, no carotid bruits, no JVD. CHEST: No deformities. LUNGS: Decreased breath sounds. HEART: Normal sinus rhythm. No murmur, no gallops, no rubs. ABDOMEN: Globular, soft, nontender, no masses. EXTREMITIES: No edema. Positive for a surgical wound on the left femoral. Medications of 05/29/2018 were reviewed. LABORATORY DATA: Laboratories of 05/29/2018, white count 7.1, hemoglobin 7.7. Sodium 136, potassium 4.6, chloride 98, carbon dioxide 28, BUN 28, creatinine 3.4, glucose 144, calcium 7.7, phosphorus 4. 8, magnesium 2.0. ASSESSMENT AND PLAN: 1. Left intertrochanteric femoral fracture - doing well, status post intramedullary nailing. Surger y is following. 2. End-stage renal disease, stable. Continuing Thursday, Thursday, Thursday hemodialysis. Fluid remov al only as tolerated. No heparin use since the patient recently had surgery. 3. Anemia. Start Epogen 10,000 units subcutaneously every week. 4. Hyperphosphatemia. We will resume phosphate binders, Renvela 800 mg 1 tab t.i.d. with meals. Recheck base met and CBC in a.m.
[2018-05-29] MEDS ORDERED: Hydrocortisone Sod Succ/PF 100 mg/2 ml Vial IVP SCH (09:45)
[2018-05-29] MEDS ORDERED: Polyethylene Glycol 3350 17 GM Packet PO SCH (09:45)
[2018-05-29] MEDS: traMADol HCl 50 MG TAB PO PRN (09:59)
[2018-05-29] MEDS ORDERED: Epoetin (ESRD) 10,000 UNITS/ML VIAL SC SCH (10:00)
[2018-05-29] MEDS: Sevelamer Carbonate 800 MG TAB PO SCH ×2 (11:43→16:24)
[2018-05-29] MEDS: tiZANidine HCl 4 MG TAB PO PRN (11:43)
[2018-05-29] MEDS: HumaLOG 300 UNITS/3 ML VIAL SC PRN ×2 (12:17→18:24)
--- NOTE | 2018-05-29 14:35 | PRG ---
DATE OF SERVICE: 05/29/2018 SUBJECTIVE: Ms. Stubbs is a 68-year-old woman who is postoperative day #1, status post IM nail to le ft intertrochanteric femur fracture. She reports adequate pain control today. She reports profound weakness today and unwilling to participate in physical therapy this morning. She denies any nausea or vomiting. She denies any dyspnea or syncope. OBJECTIVE: VITAL SIGNS: This morning includes blood pressure 138/65, pulse is 77, respiratory rate is 18, tempe rature is 98.9 degrees Fahrenheit, oxygen saturation is 99% on room air. HEART: Reveals regular rate and rhythm. CHEST: Lungs clear to auscultation bilaterally. Breathing is regular and unlabored. ABDOMEN: Soft, nontender, nondistended. EXTREMITIES: Reveals 2+ radial and pedal pulses bilaterally. No ankle edema is present. NEUROLOGIC: Reveals no focal deficits present. LABORATORY DATA: Today includes a CBC with 7100 white blood cells, hemoglobin and hematocrit 7.7 and 23.7 respectively. Platelet count is 97,000. Metabolic profile: Sodium 136, potassium is 4.6, chl oride is 98, bicarbonate 28, BUN 28, creatinine is 3.40, glucose is 144. The patient produced 350 mL of urine yesterday. IMPRESSION: 1. Postoperative day #1 status post intramedullary nailing. 2. Left intertrochanteric femur fracture. 3. Acute blood loss anemia. 4. Chronic renal failure, stable. PLAN: 1. The patient will be transfused with 1 unit of packed red blood cells today. I will ask PT and OT to increase activity as tolerated. 2. The patient will be evaluated by PM&R for possible inpatient rehabilitation post-discharge.
--- NOTE | 2018-05-29 15:17 | EKG ---
Test Reason : Blood Pressure : / mmHG Vent. Rate : 076 BPM Atrial Rate : 076 BPM P-R Int : 272 ms QRS Dur : 164 ms QT Int : 470 ms P-R-T Axes : 070 214 073 degrees QTc Int : 528 ms Sinus rhythm with 1st degree A-V block with occasional Premature ventricular complexes Right bundle branch block Inferior infarct , age undetermined T wave abnormality, consider lateral ischemia Abnormal ECG Confirmed by HOWARD THOMPSON DO ([id number]), web editor SHUN SANDRA ([id number]) on 05/29/2018 3:17:08 PM Referred By: Confirmed By:HOWARD THOMPSON DO
[2018-05-29] MEDS: Acetaminophen 500 MG TAB PO SCH ×2 (16:24→23:19)
[2018-05-29] MEDS: Insulin Glargine 30 UNITS in Pre-Filled Syringe 1 EACH SC SCH (20:48)
[2018-05-29] MEDS: Atorvastatin Calcium 40 MG TAB PO SCH (20:48)
[2018-05-29] MEDS: Senokot S 8.6-50 MG TAB PO SCH (20:49)
[2018-05-30] MEDS: traMADol HCl 50 MG TAB PO PRN ×2 (04:24→17:58)
[2018-05-30] MEDS: Acetaminophen 500 MG TAB PO SCH ×4 (05:49→23:37)
[2018-05-30] MEDS: HumaLOG 300 UNITS/3 ML VIAL SC PRN ×4 (05:52→21:50)
[2018-05-30 05:54] LABS: #Lymphocytes 1.1 thou/uL (1.20-3.40); #Monocytes 0.7 thou/uL (0.11-0.59); %Basophils 0.4 % (0.0-1.0); %Eosinophils 0.7 % (0.0-10.0); %Lymphocytes 16.4 % (21.0-51.0); %Neutrophils 72.6 % (42.0-75.0); Hemoglobin 8.4 g/dL (12.0-16.0); Mean Corpuscular HGB CONC 32.1 g/dL (32.0-36.0); Mean Corpuscular Hemoglobin 32.2 pg (27.0-31.0); Mean Platelet Volume 9.8 fL (7.4-10.4); Platelet Count 107 thou/uL (130-400); RBC Distribution Width 15.2 % (11.5-14.5); Red Blood Cell (RBC) Count 2.61 mill/uL (4.20-5.40); White Blood Cell (WBC) Count 6.9 thou/uL (4.8-10.8)
[2018-05-30 06:13] LABS: Anion Gap 16 mmol/L (10-20); BUN (Urea Nitrogen) 45 mg/dL (9.8-20.1); Calc. Creatinine Clearance 17 mL/min (70-130); Calcium 7.9 mg/dL (7.8-10.44); Carbon Dioxide 28 mmol/L (23-31); Chloride 94 mmol/L (98-107); Estimated GFR-MDRD 9; Glucose 232 mg/dL (80-115); Potassium 4.9 mmol/L (3.5-5.1); Sodium 133 mmol/L (136-145)
[2018-05-30] MEDS: Polyethylene Glycol 3350 17 GM Packet PO SCH (08:31)
[2018-05-30] MEDS: traMADol HCl 50 MG TAB PO SCH ×2 (08:32→20:33)
[2018-05-30] MEDS: Sevelamer Carbonate 800 MG TAB PO SCH ×3 (08:32→17:58)
[2018-05-30] MEDS: Senokot S 8.6-50 MG TAB PO SCH ×2 (08:32→20:34)
[2018-05-30] MEDS: hydrALAZINE 25 MG TAB PO SCH ×2 (08:33→22:03)
[2018-05-30] MEDS: Carvedilol 3.125 MG TAB PO SCH ×2 (08:34→22:03)
[2018-05-30] MEDS: predniSONE 5 MG TAB PO SCH (08:34)
[2018-05-30] MEDS: Famotidine 20 MG TAB PO SCH (09:00)
[2018-05-30] MEDS: tiZANidine HCl 4 MG TAB PO PRN (14:25)
[2018-05-30] MEDS: Atorvastatin Calcium 40 MG TAB PO SCH (20:34)
[2018-05-30] MEDS: Insulin Glargine 30 UNITS in Pre-Filled Syringe 1 EACH SC SCH (21:51)
[2018-05-31] MEDS: Acetaminophen 500 MG TAB PO SCH ×3 (05:56→18:15)
[2018-05-31 07:13] LABS: #Basophils 0.1 thou/uL (0.0-0.2); #Eosinphils 0.2 thou/uL (0.0-0.7); #Lymphocytes 1.2 thou/uL (1.20-3.40); #Monocytes 0.7 thou/uL (0.11-0.59); #Neutrophils 5.1 thou/uL (1.40-6.50); %Eosinophils 2.2 % (0.0-10.0); %Lymphocytes 16.7 % (21.0-51.0); %Monocytes 9.3 % (0.0-10.0); %Neutrophils 69.8 % (42.0-75.0); Hemoglobin 9.1 g/dL (12.0-16.0); Mean Corpuscular HGB CONC 31.3 g/dL (32.0-36.0); Mean Corpuscular Hemoglobin 31.3 pg (27.0-31.0); Mean Corpuscular Volume 99.9 fL (78.0-98.0); Mean Platelet Volume 9.4 fL (7.4-10.4); Platelet Count 129 thou/uL (130-400); RBC Distribution Width 15.2 % (11.5-14.5); Red Blood Cell (RBC) Count 2.91 mill/uL (4.20-5.40); White Blood Cell (WBC) Count 7.3 thou/uL (4.8-10.8)
[2018-05-31 07:25] LABS: Anion Gap 17 mmol/L (10-20); BUN (Urea Nitrogen) 60 mg/dL (9.8-20.1); Calc. Creatinine Clearance 13 mL/min (70-130); Carbon Dioxide 25 mmol/L (23-31); Chloride 93 mmol/L (98-107); Estimated GFR-MDRD 7; Glucose 122 mg/dL (80-115); Magnesium 2.4 mg/dL (1.6-2.6); Phosphorus 6.5 mg/dL (2.3-4.7); Potassium 5.2 mmol/L (3.5-5.1); Sodium 130 mmol/L (136-145)
[2018-05-31] MEDS: Ondansetron HCl/PF 4 MG/2 ML Vial IVP PRN (08:31)
--- NOTE | 2018-05-31 09:27 | PRG ---
DATE OF SERVICE: 05/31/2018 SUBJECTIVE: Ms. Stubbs is a 68-year-old white female who was admitted for left intertrochanteric fem oral fracture - underwent surgery 4 days. She was also noted to be anemic yesterday, she received 1 unit packed RBC. We have also resumed back her Epogen. This morning we attempted to dialyze the patient, but the AV fistula was nonfunctional. For this katelyn son, I have referred the patient to Invasive Radiology for an AV fistulogram. The patient denies any chest pain or shortness of breath. PHYSICAL EXAMINATION: VITAL SIGNS: Blood pressure is 134/68, heart rate 76, respiratory rate 16, temperature 98.9, pulse o x 95%. GENERAL: Noted to be awake, alert, comfortable, not in overt distress. SKIN: Adequate turgor. HEENT: She has slightly pale conjunctivae, anicteric sclerae. NECK: No neck mass, no carotid bruits, no JVD. CHEST: No deformities. LUNGS: Clear breath sounds. No wheezing, no crackles. HEART: Normal sinus rhythm. No murmur, no gallops or rubs. ABDOMEN: Globular, soft, nontender, no masses. EXTREMITIES: No edema, no deformities. AV fistula is nonfunctional. MEDICATIONS: 05/31/2018 - Reviewed. LABORATORY: 05/31/2018 - White count 7.3, hemoglobin 9.1. Sodium 130, potassium 5.2, chloride 93, c arbon dioxide 25, BUN 60, creatinine 6.16, phosphorus 6.5. ASSESSMENT AND PLAN: 1. End-stage renal disease - a nonfunctional AV fistula. Our plan is to schedule her for an AV fist ulogram. Once the access is opened up we will proceed with hemodialysis with the patient either late tonight or house principal. 2. Hyperphosphatemia, Renvela has been started 800 mg tab t.i.d. 3. Anemia p.r.n. blood transfusion. Continue Epogen 10,000 units subcutaneously every week. 4. Status post left intertrochanteric femoral fracture, status post surgery. The patient underwent a left intramedullary nail pinning - doing well. Surgery is following.
[2018-05-31] MEDS: Polyethylene Glycol 3350 17 GM Packet PO SCH (09:48)
[2018-05-31] MEDS: hydrALAZINE 25 MG TAB PO SCH ×2 (09:48→20:16)
[2018-05-31] MEDS: Senokot S 8.6-50 MG TAB PO SCH ×2 (09:49→20:16)
[2018-05-31] MEDS: predniSONE 5 MG TAB PO SCH (09:49)
[2018-05-31] MEDS: Carvedilol 3.125 MG TAB PO SCH ×2 (09:49→20:16)
[2018-05-31] MEDS: traMADol HCl 50 MG TAB PO SCH ×2 (09:50→20:16)
[2018-05-31] MEDS: Sevelamer Carbonate 800 MG TAB PO SCH ×3 (09:51→18:15)
[2018-05-31] MEDS ORDERED: Tamsulosin HCl 0.4 MG CAP PO SCH (10:15)
[2018-05-31] MEDS ORDERED: Activase 2 MG VIAL CATH SCH (14:31)
[2018-05-31] MEDS ORDERED: Sterile Water 10 ML VIAL IVP SCH (14:31)
--- NOTE | 2018-05-31 14:44 | ULT ---
ULTRASOUND DOPPLER DUPLEX VENOUS BILATERAL UPPER EXTERMITIES: (VENOUS MAPPING) Date: 05-31-18 History: 68-year-old female with chronic renal failure for hemodialysis access planning. Vessel caliber is given in mm. RIGHT UPPER EXTREMITY BRACHIAL ARTERY: 4.5 mm RADIAL ARTERY: 2 mm ULNAR ARTERY: 1 mm CEPHALIC VEIN Proximal Arm: 2 mm Mid Arm: 2 mm Distal Arm: 1.5 mm Antecubital Fossa: 1.5 mm Proximal Forearm: 1.5 mm Mid Forearm: 2 mm Distal Forearm: 1.5 mm BASILIC VEIN Proximal Arm: 3.5 mm Mid Arm: 3 mm Distal Arm: 3 mm Antecubital Fossa: 3 mm Proximal Forearm: 1.5 mm Mid Forearm: 1.5 mm Distal Forearm: 1 mm LEFT UPPER EXTREMITY BRACHIAL ARTERY: 3.5 mm RADIAL ARTERY: 1.5 mm ULNAR ARTERY: 1.5 mm CEPHALIC VEIN Proximal Arm: Stent present Mid Arm: Thrombosed and expanded. Partial blood flow. Distal Arm: Thrombosed and expanded. Partal blood flow. Antecubital Fossa: Thrombosed and completely occluded. Proximal Forearm: Thrombosed and completely occluded. Mid Forearm: 1 mm Distal Forearm: 1 mm BASILIC VEIN Proximal Arm: 5 mm Mid Arm: 4.5 mm Distal Arm: 3 mm Antecubital Fossa: 2.5 mm Proximal Forearm: 2 mm Mid Forearm: 1.5 mm Distal Forearm: 1 mm IMPRESSION: 1. Thrombosis of the left basilic vein. 2. Stent in the proximal arm segment of the left cephalic vein. 3. The basilic vein in the left arm and basilic vein in the right arm are consistently 3 mm or greate r in caliber. POS: [facility]
[2018-05-31] MEDS ORDERED: diphenhydrAMINE 50 MG/ML VIAL IVP SCH (14:45)
[2018-05-31] MEDS ORDERED: Hydrocortisone Sod Succ/PF 100 mg/2 ml Vial IVP SCH (14:45)
[2018-05-31] MEDS ORDERED: Famotidine/PF 20 mg/2ml Vial SLOW IVP SCH (14:45)
[2018-05-31] MEDS: traMADol HCl 50 MG TAB PO PRN (14:57)
[2018-05-31] MEDS ORDERED: Fentanyl 100 MCG/2 ML VIAL ONE (16:24)
[2018-05-31] MEDS ORDERED: Sodium Chloride 0.9% 20 ML ONE (16:25)
[2018-05-31] MEDS: HumaLOG 300 UNITS/3 ML VIAL SC PRN (18:55)
[2018-05-31] MEDS: Atorvastatin Calcium 40 MG TAB PO SCH (20:16)
[2018-05-31] MEDS: Insulin Glargine 30 UNITS in Pre-Filled Syringe 1 EACH SC SCH (20:23)
--- NOTE | 2018-05-31 21:17 | PRG ---
DATE OF SERVICE: 05/31/2018 SUBJECTIVE: Ms. Stubbs is doing well today. She is status post ORIF of her left hip. She is tolera ting her diet. Her left arm dialysis graft is thrombosed. She has had numerous interventions and guaman rgical revisions and still it is thrombosed. Plan is for a fistulogram today. OBJECTIVE: VITAL SIGNS: Temperature 98.9 degrees, 80, 121/77. LUNGS: Clear to auscultation. CARDIAC: Regular rate and rhythm without murmur or gallop. ABDOMEN: Soft and nontender. ASSESSMENT: 1. Thrombosed fistula, left arm, Interventional Radiology. 2. Open reduction and internal fixation, left hip. PLAN: Rehabilitation.
[2018-06-01] MEDS: Acetaminophen 500 MG TAB PO SCH ×5 (00:23→23:50)
--- NOTE | 2018-06-01 01:11 | CON ---
DATE OF CONSULTATION: 05/31/2018 HISTORY OF PRESENT ILLNESS: Ramila Stubbs is seen today at the request of Dr. Smallwood. I am seeing her for dialysis access. The patient was admitted on 05/27/2018 and underwent on 05/28/2018 left intertr ochanteric femur fracture ORIF by Dr. Byrne. The patient has end-stage renal disease, had dialys is graft placed in March in [place]. She has had interventions and revisions, and this has thrombosed again. Our interventional radiologist today performed a fistulogram. She is noted to have a stent i n her axilla and other hardware reflective of previous interventions and this graft could not be open ed. She had ultrasound vein mapping of the right arm performed revealing thrombosis of the left basi lic vein and graft is clinically evident. Right cephalic vein 2 mm, 2 mm, 1.5 mm, 1.5 mm, antecubita l fossa basilic vein, 2, 2, and 1.5 mm. Patient is in need of dialysis access. We will plan a place ment of a hemodialysis catheter and central line tomorrow to allow dialysis for 24-48 hours and then plan placement of a right arm dialysis fistula or graft. Risks and benefits explained and she consen ts. MEDICATIONS: As an outpatient, prednisone, hydralazine, Phenergan, Protonix, insulin 50 units subcu a.m., FlexPen as needed, carvedilol 12.5 mg b.i.d., metoprolol 50 mg b.i.d., furosemide 80 mg daily, atorvastatin 40 mg at bedtime. The patient was seen by Dr. Smallwood this hospitalization. PAST SURGICAL HISTORY: ORIF left hip, this hospitalization; left arm dialysis graft placement; multi ple interventions with stent placement, left axilla. PAST MEDICAL HISTORY: End-stage renal disease, on dialysis Thursday, Thursday, and Thursday; diabetes m ellitus; rheumatoid arthritis; osteoarthritis; vasculitis; congestive heart failure; asthma; hyperten alanis; and visual impairment. PHYSICAL EXAMINATION: VITAL SIGNS: Temperature 98.9, heart rate 80, blood pressure 121/77, height 5 feet 8 inches, weight 212 pounds, 32 BMI. LUNGS: Clear to auscultation. CARDIAC: Regular rate and rhythm without murmur or gallop. ABDOMEN: Soft. ASSESSMENT AND PLAN: More than likely, we will plan placement of right arm fistula or graft as an ou tpatient at a later date after establishment of cuffed tunneled hemodialysis catheter and central tiara e tomorrow.
[2018-06-01 05:33] LABS: #Lymphocytes 0.8 thou/uL (1.20-3.40); #Monocytes 0.4 thou/uL (0.11-0.59); #Neutrophils 5.7 thou/uL (1.40-6.50); %Basophils 0.4 % (0.0-1.0); %Eosinophils 0.2 % (0.0-10.0); %Lymphocytes 11.1 % (21.0-51.0); %Monocytes 6.2 % (0.0-10.0); %Neutrophils 82.1 % (42.0-75.0); Hemoglobin 9.5 g/dL (12.0-16.0); Mean Corpuscular HGB CONC 32.7 g/dL (32.0-36.0); Mean Corpuscular Hemoglobin 32.5 pg (27.0-31.0); Mean Corpuscular Volume 99.5 fL (78.0-98.0); Mean Platelet Volume 9.1 fL (7.4-10.4); Platelet Count 154 thou/uL (130-400); RBC Distribution Width 15.1 % (11.5-14.5); Red Blood Cell (RBC) Count 2.92 mill/uL (4.20-5.40); White Blood Cell (WBC) Count 6.9 thou/uL (4.8-10.8)
[2018-06-01 05:47] LABS: Anion Gap 19 mmol/L (10-20); BUN (Urea Nitrogen) 72 mg/dL (9.8-20.1); Calc. Creatinine Clearance 12 mL/min (70-130); Calcium 8.1 mg/dL (7.8-10.44); Carbon Dioxide 23 mmol/L (23-31); Chloride 92 mmol/L (98-107); Estimated GFR-MDRD 6; Glucose 188 mg/dL (80-115); Magnesium 2.3 mg/dL (1.6-2.6); Phosphorus 7.1 mg/dL (2.3-4.7); Potassium 5.7 mmol/L (3.5-5.1); Sodium 128 mmol/L (136-145)
[2018-06-01] MEDS: HumaLOG 300 UNITS/3 ML VIAL SC PRN (06:42)
[2018-06-01] MEDS: Sevelamer Carbonate 800 MG TAB PO SCH ×3 (08:26→18:18)
[2018-06-01] MEDS ORDERED: Levofloxacin 500 mg/D5W 100 ml Premix Bag ONE (08:47)
[2018-06-01] MEDS ORDERED: Bupivacaine HCl 0.5%/Epinephrine 1:200,000/PF 30 ml Vial ONE (08:52)
[2018-06-01] MEDS ORDERED: Sodium Chloride 0.9% 10 ML ONE ×2 (08:52)
[2018-06-01] MEDS ORDERED: Lidocaine 2% PF Inj 2 ML VIAL ONE (08:52)
[2018-06-01] MEDS ORDERED: Heparin 10,000 UNITS/1 ML VIAL ONE (08:52)
[2018-06-01] MEDS ORDERED: Tamsulosin HCl 0.4 MG CAP PO SCH (09:00)
--- NOTE | 2018-06-01 09:25 | SPC ---
LEFT UPPER EXTREMITY DIALYSIS GRAFT FISTULOGRAM SONOGRAPHIC PLACEMENT RIGHT FEMORAL DIALYSIS CATHETER: HISTORY: Poor function of dialysis graft. FINDINGS: After explaining the procedure and answering all questions, the left upper arm was prepped and draped in the usual sterile fashion. Sterile technique, buffered local anesthesia, and a 22-gaug e needle were used to carefully access the distal portion of a left upper arm straight dialysis graft . A 4 [place]e micropuncture sheath was then placed, and contrast gently injected. Immediately, there was extravasation of contrast from the mid and upper portions of the graft into the adjacent soft ti ssues. There appear to be 2 separate defects in the graft, 1 smaller defect laterally at the mid por tion of the graft and another defect more centrally. Gentle probing of the marin of the graft did no t elucidate the exact cause and exact location. A 6 [place]e sheath was placed, and a 5 [place]e [employer] catheter carefully advanced over a 0.035 Glid ewire into the central vasculature. Central vasculature was widely patent. The arterial inflow was not evaluated. Fluoro time 3 minutes. Findings were discussed with Dr. Smallwood. Thrombolysis and anglican of full flow of the graft was not undertaken due to the injury to the gr aft. The right groin was prepped and draped in the usual sterile fashion. Sterile technique, buffered loc al anesthesia, sonographic guidance, and an 18 gauge needle were used to carefully access the right c ommon femoral vein. Standard technique was then used to place a 12 [place]e tri-lumen dialysis cathete r. The catheter was secured externally with 0 silk suture and buffered local anesthesia. The patien t tolerated the procedure well and was returned in unchanged condition. IMPRESSION: Significant injury and defect of the marin of the left upper arm dialysis graft, preventing thromboly sis and full anglican of flow. Please consider surgical evaluation, potentially exploring the gra ft surgically or placing a new dialysis access. Technically successful right common femoral dialysis graft placement. CODE CR CODE CR POS: [facility]
[2018-06-01] MEDS ORDERED: Heparin 10,000 UNITS/ 10 ML VIAL ONE (10:00)
[2018-06-01] MEDS ORDERED: Fentanyl 100 MCG/2 ML VIAL ONE (10:03)
[2018-06-01] MEDS ORDERED: Promethazine HCl 25 MG/ML VIAL SLOW IVP PRN (10:03)
[2018-06-01] MEDS ORDERED: Promethazine HCl 25 MG/ML VIAL IM PRN (10:03)
[2018-06-01] MEDS ORDERED: Ondansetron HCl/PF 4 MG/2 ML Vial IVP PRN (10:03)
--- NOTE | 2018-06-01 10:33 | OP ---
DATE OF PROCEDURE: 06/01/2018 PREOPERATIVE DIAGNOSES: Status post open reduction internal fixation hip fracture, thrombosed left u pper arm dialysis graft nonsalvageable. Previous stents performed elsewhere. Poor IV access. POSTOPERATIVE DIAGNOSES: Status post open reduction and internal fixation hip fracture, thrombosed l eft upper arm dialysis graft nonsalvageable. Previous stents performed elsewhere. Poor IV access. PROCEDURE: Right IJ cuffed tunnel hemodialysis catheter, angiodynamics precurved, left IJ triple lum en catheter. SURGEON: Kenneth Romero M.D. ANESTHESIA: TIVA, local 0.5% Marcaine with epinephrine 30 mL mixed with 2% Xylocaine, 10 mL. PROCEDURE: The patient was taken to the operating room where under intravenous sedation, neck and ch est prepped with ChloraPrep, draped in routine fashion. Local anesthetic mixture infiltrated in the skin and subcutaneous tissue about the operative site. Using ultrasound guidance, the right and left internal jugular veins were cannulated with a trocar catheter. J-wire threaded. Trocar catheter re moved. Skin incised and enlarged sharply. Stab incision made over the right chest and the precurved angiodynamics cuffed tunnel hemodialysis catheter placed the fabric cuff beneath the catheter exit s ite over the chest and catheter secured with 2 interrupted sutures of 3-0 nylon. Smaller medium size d dilators placed over the J-wire into the internal jugular vein removed. Dilator and pull-away tejada th placed in the superior vena cava and J wire and dilator removed. Catheter placed through pull-jose y sheath. Pull-away sheath removed. Platysma approximated with 4-0 Monocryl, skin with subdermal 4- 0 Monocryl. DermaGlue and sterile dressings applied. Each port aspirated blood and flushed with katrin ine solution and heparinized saline solution 1000 units heparin per mL indicated volume of the port. Seldinger technique used to place a left internal jugular vein triple lumen catheter, removing the J wire, securing with a 3-0 nylon suture. Biopatch sterile dressing applied. Each port aspirated of b lood and flushed with saline solution. Fluoroscopic images revealed good line placement, hemodialysi s and central lines. The patient tolerated the procedure well.
--- NOTE | 2018-06-01 10:41 | PRG ---
DATE OF SERVICE: 06/01/2018 SUBJECTIVE: Ms. Ramila Stubbs is doing well today. Her white count is 6, hemoglobin 9.5, potassium 5.7. Sodium 128. This morning, we will plan placement of hemodialysis catheter and probable central line, this will allow her to dialyze, well in the next 24-48 hours, established new right arm fistula, possible graft. Her left arm graft is not salvageable, has multiple interventions and surge bita had only resulted in thrombosis. She has stents present and they could not open it yesterday in the Interventional Radiology.
[2018-06-01] MEDS: Ondansetron HCl/PF 4 MG/2 ML Vial IVP PRN (10:51)
--- NOTE | 2018-06-01 11:43 | RAD ---
PORTABLE CHEST 1 VIEW: DATE: 09/01/17. TIME: 10:12 a.m. HISTORY: Catheter replacement. FINDINGS: Comparison is made with the exam of 05/27/2018. There has been interval placement of a left internal jugular central venous catheter with tip in the projection of the SVC. There is a right internal jugular double-lumen venous catheter with tips in t he position of the SVC. No pneumothoraces are seen on either side. The heart size is enlarged. The re is mild fullness of the pulmonary vascularity. POS: [facility]
[2018-06-01] MEDS: traMADol HCl 50 MG TAB PO PRN (13:17)
[2018-06-01] MEDS ORDERED: Lidocaine 1% PF 5 ML VIAL ONE (13:45)
[2018-06-01] MEDS ORDERED: PROPOFOL 200 MG/20 ML VIAL ONE (13:45)
[2018-06-01] MEDS: traMADol HCl 50 MG TAB PO SCH ×2 (14:36→21:05)
[2018-06-01] MEDS: hydrALAZINE 25 MG TAB PO SCH ×2 (14:40→21:06)
[2018-06-01] MEDS: Carvedilol 3.125 MG TAB PO SCH ×2 (14:40→21:06)
[2018-06-01] MEDS: Senokot S 8.6-50 MG TAB PO SCH ×2 (14:41→21:06)
--- NOTE | 2018-06-01 15:03 | PRG-2 ---
DATE OF SERVICE: 06/01/2018 SUBJECTIVE: Patient is a 68-year-old female with a past medical history significant for end-stage renal disease, on hemodialysis who is status post a mechanical fall. She is postoperative day #4 status post intramedullary nailing of a left femur fracture. The patient was taken to the operating room early this morning with Dr. Kenneth Romero in order to have a right IJ cuffed tunnel hemodialysis catheter placed for temporary dialysis access. She also had a left IJ triple-lumen catheter placed at that time. Patient tolerated the procedure well and was subsequently taken down for hemodialysis via her temporary access this afternoon after recovering from surgery. On examination, patient stated that her pain was decently controlled. Patient did not have any concerns at the time of examination. OBJECTIVE: VITAL SIGNS: Last documented vital signs, which were obtained prior to surgery include a blood pressure of 142/65, pulse 78, respiratory rate 18, O2 saturation 92% on room air, and a temperature of 97.4 degrees Fahrenheit. GENERAL: Patient is resting comfortably in bed in hemodialysis unit. She is awake, alert, and oriented x3. HEENT: Normocephalic, atraumatic. LUNGS: Clear to auscultation bilaterally with symmetric chest rise. CARDIOVASCULAR: Regular rate and rhythm. No murmurs. ABDOMEN: Soft, nondistended, nontender with active bowel sounds. EXTREMITIES: Patient has normal range of motion in bilateral upper extremities and somewhat decreased range of motion in left lower extremity secondary to orthopedic injury. LABORATORY DATA: White blood count 6.9, hemoglobin 9.5, hematocrit 29.1, platelets 154. Sodium 128, potassium 5.7, chloride 92, bicarbonate 23, BUN 72, creatinine 6.70, glucose 188, calcium 8.1, phosphorus 7.1, magnesium 2.3. RADIOLOGIC DATA: Chest x-ray on 06/01/2018 confirming catheter replacement. Significant for her interval placement of a left IJ central venous catheter with tip in the projection of the SCV. There is also a right internal jugular double-lumen venous catheter with tips in the position of the SCV. No pneumothoraces are seen on either side. ASSESSMENT AND PLAN: 1. Left femur fracture, status post repair. 2. Acute traumatic pain. 3. End-stage renal disease, on hemodialysis. 4. Hyperkalemia, secondary to end-stage renal disease. 5. Anemia, secondary to acute blood loss versus end-stage renal disease. 6. Hyponatremia. 7. Hyperphosphatemia. PLAN: The patient was taken down for urgent hemodialysis today in order to correct electrolyte abnormalities including hyperphosphatemia and hyperkalemia. Nephrology, Dr. Mihir Smallwood is on board regarding her ESRD management. Will continue daily bowel regimen and p.o. pain control. Case management on board regarding rehab placement upon discharge. Anticipate requiring permanent hemodialysis access via placement of a right AV fistula before the end of the week, prior to the patient being discharged. Will continue to follow electrolytes and anemia with daily CBCs and BMPs. AKID
[2018-06-01 15:32] LABS: HBSAg Index 0.23 S/CO (0-0.99); Hep B Surf Ag Non-Reactive S/CO (NonReactive)
[2018-06-01] MEDS: predniSONE 5 MG TAB PO SCH (15:57)
[2018-06-01] MEDS: Polyethylene Glycol 3350 17 GM Packet PO SCH (15:58)
--- NOTE | 2018-06-01 17:15 | RAD ---
LEFT UPPER EXTREMITY DIALYSIS GRAFT FISTULOGRAM SONOGRAPHIC PLACEMENT RIGHT FEMORAL DIALYSIS CATHETER: HISTORY: Poor function of dialysis graft. FINDINGS: After explaining the procedure and answering all questions, the left upper arm was prepped and draped in the usual sterile fashion. Sterile technique, buffered local anesthesia, and a 22-gaug e needle were used to carefully access the distal portion of a left upper arm straight dialysis graft . A 4 [place]an micropuncture sheath was then placed, and contrast gently injected. Immediately, there was extravasation of contrast from the mid and upper portions of the graft into the adjacent soft ti ssues. There appear to be 2 separate defects in the graft, 1 smaller defect laterally at the mid por tion of the graft and another defect more centrally. Gentle probing of the marin of the graft did no t elucidate the exact cause and exact location. A 6 [place]an sheath was placed, and a 5 [place] [employer] catheter carefully advanced over a 0.035 Glid ewire into the central vasculature. Central vasculature was widely patent. The arterial inflow was not evaluated. Fluoro time 3 minutes. Findings were discussed with Dr. Smallwood. Thrombolysis and sikh of full flow of the graft was not undertaken due to the injury to the gr aft. The right groin was prepped and draped in the usual sterile fashion. Sterile technique, buffered loc al anesthesia, sonographic guidance, and an 18 gauge needle were used to carefully access the right c ommon femoral vein. Standard technique was then used to place a 12 [place] tri-lumen dialysis cathete r. The catheter was secured externally with 0 silk suture and buffered local anesthesia. The patien t tolerated the procedure well and was returned in unchanged condition. IMPRESSION: Significant injury and defect of the marin of the left upper arm dialysis graft, preventing thromboly sis and full sikh of flow. Please consider surgical evaluation, potentially exploring the gra ft surgically or placing a new dialysis access. Technically successful right common femoral dialysis graft placement. CODE CR
--- NOTE | 2018-06-01 17:19 | SPC ---
LEFT UPPER EXTREMITY DIALYSIS GRAFT FISTULOGRAM SONOGRAPHIC PLACEMENT RIGHT FEMORAL DIALYSIS CATHETER: HISTORY: Poor function of dialysis graft. FINDINGS: After explaining the procedure and answering all questions, the left upper arm was prepped and draped in the usual sterile fashion. Sterile technique, buffered local anesthesia, and a 22-gaug e needle were used to carefully access the distal portion of a left upper arm straight dialysis graft . A 4 [place]uran micropuncture sheath was then placed, and contrast gently injected. Immediately, there was extravasation of contrast from the mid and upper portions of the graft into the adjacent soft ti ssues. There appear to be 2 separate defects in the graft, 1 smaller defect laterally at the mid por tion of the graft and another defect more centrally. Gentle probing of the marin of the graft did no t elucidate the exact cause and exact location. A 6 [place]uran sheath was placed, and a 5 [place] AramisAutoenstein catheter carefully advanced over a 0.035 Glid ewire into the central vasculature. Central vasculature was widely patent. The arterial inflow was not evaluated. Fluoro time 3 minutes. Findings were discussed with Dr. Smallwood. Thrombolysis and taoism of full flow of the graft was not undertaken due to the injury to the gr aft. The right groin was prepped and draped in the usual sterile fashion. Sterile technique, buffered loc al anesthesia, sonographic guidance, and an 18 gauge needle were used to carefully access the right c ommon femoral vein. Standard technique was then used to place a 12 [place]uran tri-lumen dialysis cathete r. The catheter was secured externally with 0 silk suture and buffered local anesthesia. The patien t tolerated the procedure well and was returned in unchanged condition. IMPRESSION: Significant injury and defect of the marin of the left upper arm dialysis graft, preventing thromboly sis and full taoism of flow. Please consider surgical evaluation, potentially exploring the gra ft surgically or placing a new dialysis access. Technically successful right common femoral dialysis graft placement. CODE CR
[2018-06-01] MEDS: Atorvastatin Calcium 40 MG TAB PO SCH (21:06)
[2018-06-01] MEDS: Insulin Glargine 30 UNITS in Pre-Filled Syringe 1 EACH SC SCH (21:07)
[2018-06-01] MEDS: tiZANidine HCl 4 MG TAB PO PRN (23:57)
[2018-06-02] MEDS: traMADol HCl 50 MG TAB PO PRN ×2 (00:37→12:03)
[2018-06-02] MEDS: Acetaminophen 500 MG TAB PO SCH (05:27)
[2018-06-02 06:00] LABS: #Eosinphils 0.1 thou/uL (0.0-0.7); #Lymphocytes 0.9 thou/uL (1.20-3.40); #Monocytes 0.6 thou/uL (0.11-0.59); #Neutrophils 4.3 thou/uL (1.40-6.50); %Eosinophils 1.3 % (0.0-10.0); %Lymphocytes 14.7 % (21.0-51.0); %Monocytes 10.2 % (0.0-10.0); %Neutrophils 73.8 % (42.0-75.0); Hemoglobin 8.8 g/dL (12.0-16.0); Mean Corpuscular HGB CONC 32.5 g/dL (32.0-36.0); Mean Corpuscular Hemoglobin 32.7 pg (27.0-31.0); Mean Platelet Volume 8.6 fL (7.4-10.4); Platelet Count 141 thou/uL (130-400); RBC Distribution Width 15.6 % (11.5-14.5); Red Blood Cell (RBC) Count 2.68 mill/uL (4.20-5.40); White Blood Cell (WBC) Count 5.9 thou/uL (4.8-10.8)
[2018-06-02 06:10] LABS: Anion Gap 15 mmol/L (10-20); BUN (Urea Nitrogen) 43 mg/dL (9.8-20.1); Calc. Creatinine Clearance 18 mL/min (70-130); Carbon Dioxide 27 mmol/L (23-31); Chloride 96 mmol/L (98-107); Estimated GFR-MDRD 9; Glucose 132 mg/dL (80-115); Potassium 4.8 mmol/L (3.5-5.1); Sodium 133 mmol/L (136-145)
--- NOTE | 2018-06-02 09:16 | PRG ---
DATE OF SERVICE: 06/02/2018 SUBJECTIVE: Ms. Stubbs is a 68-year-old white female with ESRD and was admitted due to left intertro chanteric fracture. She has undergone an open reduction and internal fixation. Yesterday she had a right IJ tunneled catheter placed and a surgical exploration of AV graft was done. However this was not salvageable. She currently has a right IJ. She is undergoing dialysis. I am at the bedside supervising her dialysis. PHYSICAL EXAMINATION: VITAL SIGNS: Blood pressure 106/69, heart rate 76, respiratory rate 16, temperature 98.3, pulse ox 9 8%. GENERAL: Patient is sleeping, but arousable, comfortable, not in distress. SKIN: Adequate turgor. HEENT: Slightly pale conjunctivae, anicteric sclerae. NECK: No neck mass, no carotid bruits, no JVD. CHEST: No deformities. LUNGS: Clear breath sounds. HEART: Normal sinus rhythm. Grade 2/6 systolic murmur, no gallops or rubs. ABDOMEN: Globular, soft, nontender. EXTREMITIES: No edema. MEDICATIONS: 06/02/2018 - Reviewed. LABORATORY: 06/02/2018 - White count 5.9, hemoglobin 8.8. Sodium 133, potassium 4.8, chloride 96, c arbon dioxide 27, BUN 43, creatinine 4.61, glucose 132, calcium 8.8. ASSESSMENT AND PLAN: 1. Status post left intertrochanteric fracture status post open reduction internal fixation. Surger y is following, stable. 2. Anemia. Continuing weekly Epogen and p.r.n. blood transfusion. 3. End-stage renal disease, stable, undergoing hemodialysis. Using no heparin due to the recent marlo cesar. Eventual reconstruction of a new AV graft/AV fistula is being planned. Currently, she has a r ight IJ dialysis catheter. I agree with current management. Recheck base met and CBC in a.m.
[2018-06-02] MEDS ORDERED: Heparin 10,000 UNITS/ 10 ML VIAL ONE (11:24)
[2018-06-02] MEDS ORDERED: PROPOFOL 200 MG/20 ML VIAL ONE (11:24)
[2018-06-02] MEDS ORDERED: PHENYLEPHRINE-NS 100 MCG/ML 10 ML SYRINGE ONE (11:24)
[2018-06-02] MEDS: Acetaminophen 1,000 MG in Premix Bag 1 BAG IVPB SCH ×2 (12:04→15:36)
[2018-06-02] MEDS: Ondansetron HCl/PF 4 MG/2 ML Vial IVP PRN (12:15)
--- NOTE | 2018-06-02 13:04 | CON-2 ---
DATE OF SERVICE: 06/02/2018 SUBJECTIVE: The patient is a 68-year-old lady with a past medical history significant for end-stage renal disease on hemodialysis who is status post mechanical fall and subsequently suffered a left femur fracture. She is postop day #5, status post femur fracture repair. The patient had a right IJ dialysis catheter placed in the operating room with Dr. Kenneth Romero yesterday. She tolerated the procedure well. She was dialyzed via that temporary access yesterday and again this morning. The patient is to be taken back to the OR again this afternoon for placement of a right AV fistula for more permanent hemodialysis access. On exam, the patient is resting comfortably in bed on 2 liters of nasal cannula satting well and breathing comfortably. She has no complaints on exam other than some slight discomfort around the site of her right IJ. OBJECTIVE: VITAL SIGNS: Last recorded vital signs at approximately 3:15 this morning were as follows: Temperature 98.3 degrees Fahrenheit, pulse 76, respirations 16, O2 sat 98% on 2 liters nasal cannula, blood pressure 106/69. GENERAL: The patient is lying in bed resting comfortably in no acute distress. HEENT: Atraumatic, normocephalic. LUNGS: Clear to auscultation bilaterally with normal work of breathing and symmetric chest rise. CARDIOVASCULAR: Regular rate and rhythm. No murmurs. ABDOMEN: Soft, nondistended, nontender with hypoactive bowel sounds noted. EXTREMITIES: The patient has normal range of motion in bilateral upper extremities and somewhat decreased range of motion in left lower extremity secondary to orthopedic injury. LABORATORY DATA: White blood count 5.9, hemoglobin 8.8, hematocrit 26.9, platelet count 141. Sodium 133, potassium 4.8, chloride 96, bicarbonate 27, BUN 43, creatinine 4.61, blood glucose 132, calcium 8.0. Hepatitis B surface antigen nonreactive on 06/01/2018. RADIOLOGIC DATA: There is no new radiologic data for review. ASSESSMENT: 1. Left femur fracture, status post repair. 2. Acute traumatic pain. 3. End-stage renal disease on hemodialysis. 4. Anemia secondary to acute blood loss and end-stage renal disease. 5. Hyponatremia. PLAN: The patient was dialyzed earlier this morning and will be taken down to the OR again this afternoon for placement of a right AV fistula in order to obtain more permanent hemodialysis access. We will continue to monitor electrolytes and hemoglobin levels with daily CBCs and BMPs. Nephrology is on board and Dr. Mihir Smallwood has been seeing the patient since her admission and will manage these abnormalities as they arise. Will continue routine daily bowel regimen and p.o. pain control. Case management on board regarding rehab placement upon discharge. No bed available for today; however, the patient will likely need to be monitored overnight following her surgery anyway. Anticipate possible discharge tomorrow if rehab facility has an open bed become available. The plan was discussed with the trauma attending, Dr. Alexey Zacarias. AMBER
[2018-06-02] MEDS: predniSONE 5 MG TAB PO SCH (15:37)
[2018-06-02] MEDS: Carvedilol 3.125 MG TAB PO SCH ×3 (15:37→22:06)
[2018-06-02] MEDS: hydrALAZINE 25 MG TAB PO SCH ×2 (15:37→22:06)
[2018-06-02] MEDS: Polyethylene Glycol 3350 17 GM Packet PO SCH (15:37)
[2018-06-02] MEDS: Sevelamer Carbonate 800 MG TAB PO SCH (15:37)
[2018-06-02] MEDS: traMADol HCl 50 MG TAB PO SCH ×2 (15:38→22:05)
[2018-06-02] MEDS: Senokot S 8.6-50 MG TAB PO SCH ×2 (15:38→22:06)
[2018-06-02] MEDS ORDERED: Scopolamine 1.5 mg/72 hour Patch ONE (16:00)
[2018-06-02] MEDS ORDERED: Famotidine/PF 20 mg/2ml Vial ONE (16:00)
[2018-06-02] MEDS ORDERED: Lidocaine 2% PF Inj 2 ML VIAL ONE (16:17)
[2018-06-02] MEDS ORDERED: Bupivacaine HCl 0.5%/Epinephrine 1:200,000/PF 30 ml Vial ONE (16:17)
[2018-06-02] MEDS ORDERED: Heparin 5,000 UNITS/ML VIAL ONE (16:17)
[2018-06-02] MEDS ORDERED: Protamine Sulfate 50 MG/5 ML VIAL ONE (16:17)
[2018-06-02] MEDS ORDERED: Midazolam HCl 2 mg/2 ml Vial ONE (16:58)
[2018-06-02] MEDS ORDERED: Propofol 500 MG/50 ML VIAL ONE (16:58)
[2018-06-02] MEDS ORDERED: Ketamine 50 MG/ML VIAL ONE (16:58)
[2018-06-02] MEDS ORDERED: Fentanyl 100 MCG/2 ML VIAL ONE (16:58)
[2018-06-02] MEDS ORDERED: Levofloxacin 500 mg/D5W 100 ml Premix Bag ONE (17:01)
[2018-06-02] MEDS ORDERED: Promethazine HCl 25 MG/ML VIAL IM PRN (18:45)
[2018-06-02] MEDS ORDERED: Ondansetron HCl/PF 4 MG/2 ML Vial IVP PRN (18:45)
[2018-06-02] MEDS ORDERED: Promethazine HCl 25 MG/ML VIAL SLOW IVP PRN (18:45)
[2018-06-02] MEDS ORDERED: Ondansetron HCl/PF 4 MG/2 ML Vial ONE (19:01)
[2018-06-02] MEDS: Atorvastatin Calcium 40 MG TAB PO SCH (22:06)
[2018-06-02] MEDS: Insulin Glargine 30 UNITS in Pre-Filled Syringe 1 EACH SC SCH (22:07)
[2018-06-02] MEDS: HumaLOG 300 UNITS/3 ML VIAL SC PRN (22:08)
[2018-06-02] MEDS: tiZANidine HCl 4 MG TAB PO PRN (22:17)
[2018-06-03] MEDS: Acetaminophen 1,000 MG in Premix Bag 1 BAG IVPB SCH ×2 (00:20→07:54)
--- NOTE | 2018-06-03 02:42 | OP ---
DATE OF PROCEDURE: 06/02/2018 PREOPERATIVE DIAGNOSES: End-stage renal disease; thrombosed dialysis graft in left upper arm with mu ltiple surgical interventions and stents, nonsalvageable; recently fractured hip, open reduction inte rnal fixation. POSTOPERATIVE DIAGNOSES: End-stage renal disease; thrombosed dialysis graft in left upper arm with m ultiple surgical interventions and stents, nonsalvageable; recently fractured hip, open reduction int ernal fixation. PROCEDURE: Exploration of right arm with primary fistula formed inflow, proximal radial artery; outf low, perforating branch antecubital vein; primary outflow, cephalic vein calibrated to a 4-mm coronar y dilator, secondary outflow (anatomic considerations) basilic vein. SURGEON: Kenneth Romero M.D. ANESTHESIA: Regional, intravenous sedation. DESCRIPTION OF PROCEDURE: The patient was taken to the operating room, where under intravenous sedat ion and regional anesthesia, right upper extremity was prepared with ChloraPrep, draped in routine fa shion. Incision was made longitudinally in the proximal volar forearm, carried down the skin and sub cutaneous tissue, and antecubital vein dissected free. It was of good caliber. The patient was give n 6000 units of heparin intravenously. Perforating branch antecubital vein dissected free and branch es divided between clips; identifying the proximal radial artery, dissecting it free. The perforatin g branch antecubital vein was spatulated over branch points and interrogated with coronary dilators, passed coronary dilators from 2 mm to a 4-mm coronary dilator out the cephalic vein outflow unobstruc russel. It was then flushed with heparinized saline solution. The patient was given 6000 units of hepa rin intravenously. Brachial, ulnar, and proximal radial artery clamped with vascular clamp. Longitu dinal arteriotomy was made sharply with an 11-blade, elongated with a Carrillo scissors for a 2.5 to 3-c m anastomosis between the proximal radial artery side and the end perforating branch of antecubital v ein. Once this anastomosis was completed with 6-0 Prolene, vascular control was released. There was excellent flow out the cephalic vein fistula. Good Doppler signals noted in the cephalic vein outfl ow and to a lesser degree in basilic vein outflow outflow was occluded. The patient was given 25 mg of protamine intravenously by Anesthesia. Good hemostasis was obtained with 6-0 Prolene. Surg icel was applied. Subcutaneous tissue was approximated with 3-0 Monocryl, skin with subdermal 4-0 Mo nocryl, and DermaGlue applied.
[2018-06-03 06:04] LABS: #Eosinphils 0.1 thou/uL (0.0-0.7); #Lymphocytes 0.8 thou/uL (1.20-3.40); #Monocytes 0.7 thou/uL (0.11-0.59); #Neutrophils 4.6 thou/uL (1.40-6.50); %Basophils 0.7 % (0.0-1.0); %Lymphocytes 12.9 % (21.0-51.0); %Neutrophils 73.5 % (42.0-75.0); Hemoglobin 8.8 g/dL (12.0-16.0); Mean Corpuscular HGB CONC 32.9 g/dL (32.0-36.0); Mean Corpuscular Hemoglobin 33.2 pg (27.0-31.0); Mean Platelet Volume 8.4 fL (7.4-10.4); Platelet Count 126 thou/uL (130-400); RBC Distribution Width 15.3 % (11.5-14.5); Red Blood Cell (RBC) Count 2.65 mill/uL (4.20-5.40); White Blood Cell (WBC) Count 6.3 thou/uL (4.8-10.8)
[2018-06-03 06:23] LABS: Anion Gap 12 mmol/L (10-20); BUN (Urea Nitrogen) 22 mg/dL (9.8-20.1); Calc. Creatinine Clearance 24 mL/min (70-130); Calcium 7.9 mg/dL (7.8-10.44); Carbon Dioxide 28 mmol/L (23-31); Chloride 101 mmol/L (98-107); Estimated GFR-MDRD 13; Glucose 70 mg/dL (80-115); Potassium 3.8 mmol/L (3.5-5.1); Sodium 137 mmol/L (136-145)
[2018-06-03] MEDS: Sevelamer Carbonate 800 MG TAB PO SCH ×4 (07:54→17:39)
[2018-06-03] MEDS ORDERED: Hydrocortisone Sod Succ/PF 100 mg/2 ml Vial IVP SCH (08:42)
[2018-06-03] MEDS ORDERED: Albumin 25% 25 GM/100 ML BOT IVPB SCH (08:51)
--- NOTE | 2018-06-03 09:15 | PRG ---
DATE OF SERVICE: 06/03/2018 SUBJECTIVE: Ms. Stubbs is a 68-year-old white female with ESRD and admitted for left intertrochanter ic fracture, status post surgery, status post cuffed hemodialysis catheter placement, status post AV fistula, and being followed the [facility] for maintenance hemodialysis. Early today the patient has been noted to be hypotensive. A one time dose of 12.5 grams of albumin was given. The plan is t o at least place her on 25 grams IV q.6 for at least one day of salt poor albumin. No complaints of chest pain or shortness of breath. Postop pain is improved. The patient declining to go to the reha b today. PHYSICAL EXAMINATION: VITAL SIGNS: Blood pressure is 85/40 with a heart rate of 90, respiratory rate 18, temperature 99, p ulse ox 99%. GENERAL: Noted to be awake, supine, comfortable, not in overt distress. SKIN: Adequate turgor. HEENT: Slightly pale conjunctivae, anicteric sclerae. NECK: No neck mass, no carotid bruits, no JVD. CHEST: No deformities. LUNGS: Clear breath sounds, no wheezing, no crackles. HEART: Normal sinus rhythm. No murmur, no gallops or rubs. ABDOMEN: Globular, soft, nontender, no masses. EXTREMITIES: No edema, no deformities. MEDICATIONS: 06/03/2018 - Reviewed. LABORATORY: 06/03/2018 - White count 6.3, hemoglobin 8.8. Sodium 137, potassium 3.8, chloride 101, carbon dioxide 28, BUN 22, creatinine 3.48, glucose 70, calcium 7.9. ASSESSMENT AND PLAN: 1. Hypotension - albumin infusion - 25 grams IV q.6 for 1 day. 2. End-stage renal disease, stable. No indication for any emergent hemodialysis today. We will adj ust fluid removal with her dialysis. We will attempt to pull less fluid with her tomorrow. 3. Status post left intertrochanteric femur fracture, stable status post left intertrochanteric hip intramedullary nail placement. Stable and doing well. Recheck base met and CBC in the a.m.
[2018-06-03] MEDS ORDERED: traMADol HCl 50 MG TAB PO PRN (09:22)
--- NOTE | 2018-06-03 09:43 | PRG ---
DATE OF SERVICE: 06/03/2018 SUBJECTIVE: Ms. Stubbs is doing well today. PHYSICAL EXAMINATION: VITAL SIGNS: Temperature 99 degrees, 85/40. She has chronic hypotension. She is followed by Dr. Smallwood, Nephrology. LABORATORY: Hemoglobin 8.8 which is stable for her. Electrolytes stable for end-stage renal disease . EXTREMITIES: Right arm, good function, hand function good. No hand pain. Surgical wound proximal v olar forearm clean and dry. The patient had skin tears on her forearm prior to her operation and int raoperatively. This was treated with Vaseline gauze and a loose Kerlix roll. She has a good thrill and bruit over her right cephalic vein fistula. ASSESSMENT AND PLAN: End-stage renal disease with thrombosed graft left upper arm and exhausted left upper arm dialysis access. Her basilic vein on preoperative ultrasound vein mapping was thrombosed and her left arm is exhausted for dialysis access. Fortunately, she had vein that is much better jaswant n anticipated and much better than shown on preoperative ultrasound vein mapping. We would hope that her cephalic vein matures with time for her primary fistula. I have recommend she follow up with me in 3-4 weeks, exercise her right arm, avoid blood pressures and IV access right arm. The patient is stable to transfer to rehab at any time from my standpoint. She will follow up in my office in 3-4 weeks.
[2018-06-03] MEDS: Polyethylene Glycol 3350 17 GM Packet PO SCH (09:59)
[2018-06-03] MEDS: Senokot S 8.6-50 MG TAB PO SCH ×2 (10:00→21:14)
[2018-06-03] MEDS: Carvedilol 3.125 MG TAB PO SCH ×2 (10:00→22:58)
[2018-06-03] MEDS: predniSONE 5 MG TAB PO SCH (11:11)
[2018-06-03] MEDS: Acetaminophen 500 MG TAB PO PRN ×2 (11:14→21:13)
[2018-06-03] MEDS: HumaLOG 300 UNITS/3 ML VIAL SC PRN ×3 (12:53→21:21)
--- NOTE | 2018-06-03 13:09 | PRG-2 ---
DATE OF SERVICE: 06/03/2018 SUBJECTIVE: The patient is a 68-year-old female with a past medical history significant for end-stage renal disease on hemodialysis who is status post a mechanical fall and subsequently suffered a left femur fracture. The patient is postop day #6 status post femur fracture repair. She is also postop day #1, status post placement of a right AV fistula for permanent hemodialysis access done yesterday afternoon. Of note, prior to her right AV fistula placement, the patient had a right IJ dialysis catheter placed 2 days ago for temporary dialysis access while waiting for her newly placed fistula to mature. The patient tolerated the procedures well. Of note, overnight and early this morning the patient had multiple episodes of hypotension with her systolic blood pressure getting as low as 68. However, no physician or physician assistants were notified of this. On exam this morning, the patient states her pain is only moderately controlled. She does have some pain and irritation due to rubbing in her right IJ site as well. OBJECTIVE: VITAL SIGNS: Temperature 99 degrees Fahrenheit, pulse 90, respirations 18, O2 sat is 99% on 2 liters nasal cannula, blood pressure 68/40 at approximately 0742 this morning. GENERAL: The patient is lying in bed in no acute distress. HEENT: Atraumatic, normocephalic. LUNGS: Clear to auscultation bilaterally with normal work of breathing and symmetric chest rise. CARDIOVASCULAR: Regular rate and rhythm, no murmurs. ABDOMEN: Soft, nondistended, nontender with normal bowel sounds noted. EXTREMITIES: The patient has somewhat limited range of motion in right upper extremity secondary to an anesthetic block that was placed yesterday for her procedure. She also has limited range of motion in her left lower extremity secondary to orthopedic injury. Otherwise, has normal range of motion in remaining extremities. LABORATORY DATA: White blood count 6.3, hemoglobin 8.8, hematocrit 26.7, platelet count 126. Sodium 137, potassium 3.8, chloride 108, carbon dioxide 28 , BUN 22, creatinine 3.48, glucose 70, calcium 7.9. RADIOGRAPHIC DATA: There is no new radiologic data for review. ASSESSMENT: 1. Left femur fracture, status post repair. 2. Acute traumatic pain. 3. End-stage renal disease on hemodialysis. 4. Anemia secondary to end-stage renal disease. 5. Hyponatremia, resolved. 6. Hypotension. PLAN: The patient was hesitant to go to rehab today given the events of this morning; however, she will likely be transferred if a bed becomes available so long as her blood pressure stabilizes. Regarding her hypotension, the patient was given one 12.5 gram dose of albumin at approximately 10:00 a.m. In addition , per Nephrology, the patient has an additional 4 doses of 25 grams of albumin scheduled over the next 24 hours. Will add lactulose 30 grams daily to her normal bowel regimen to induce a bowel movement as the patient is complaining of constipation. Of note, the patient did have a documented bowel movement on 06/01/2018. Will also change her 50 mg dose of tramadol to be scheduled q.8 hours with an additional 50 mg dose available p.r.n. q.6h. for breakthrough pain. Will continue to monitor her vitals closely throughout the course of the day and will obtain a repeat CBC and BMP in the morning should the patient stay an additional night. Will place a nursing communication order to provide the patient with saline nasal spray to prevent her nose from drying out and will request that they cover her right IJ site with gauze to reduce the irritation the patient is experiencing. The patient was seen by and the plan was discussed with the trauma attending, Dr. Alexey Zacarias. AMBER
[2018-06-03] MEDS: traMADol HCl 50 MG TAB PO SCH ×3 (14:20→21:13)
[2018-06-03] MEDS: tiZANidine HCl 4 MG TAB PO PRN (16:06)
[2018-06-03] MEDS: Albumin 25% 25 GM/100 ML BOT IVPB SCH ×2 (16:06→21:21)
[2018-06-03] MEDS ORDERED: Gabapentin 100 MG CAP PO SCH (21:00)
[2018-06-03] MEDS: Atorvastatin Calcium 40 MG TAB PO SCH (21:14)
[2018-06-03] MEDS: Insulin Glargine 30 UNITS in Pre-Filled Syringe 1 EACH SC SCH (21:21)
[2018-06-04] MEDS ORDERED: traMADol HCl 50 MG TAB PO PRN ×2 (00:58→01:08)
[2018-06-04] MEDS: Ondansetron HCl/PF 4 MG/2 ML Vial IVP PRN ×2 (01:56→13:10)
[2018-06-04] MEDS: Albumin 25% 25 GM/100 ML BOT IVPB SCH ×2 (04:38→12:56)
[2018-06-04] MEDS: tiZANidine HCl 4 MG TAB PO PRN (05:04)
[2018-06-04] MEDS: traMADol HCl 50 MG TAB PO SCH ×2 (05:04→13:10)
[2018-06-04 05:22] LABS: #Lymphocytes 1.1 thou/uL (1.20-3.40); #Monocytes 0.7 thou/uL (0.11-0.59); #Neutrophils 5.1 thou/uL (1.40-6.50); %Eosinophils 0.5 % (0.0-10.0); %Lymphocytes 15.9 % (21.0-51.0); %Neutrophils 73.6 % (42.0-75.0); Hemoglobin 7.7 g/dL (12.0-16.0); Mean Corpuscular HGB CONC 32.3 g/dL (32.0-36.0); Mean Corpuscular Hemoglobin 32.5 pg (27.0-31.0); Mean Platelet Volume 8.9 fL (7.4-10.4); Platelet Count 97 thou/uL (130-400); RBC Distribution Width 15.4 % (11.5-14.5); Red Blood Cell (RBC) Count 2.38 mill/uL (4.20-5.40)
[2018-06-04 05:24] LABS: Anion Gap 16 mmol/L (10-20); BUN (Urea Nitrogen) 37 mg/dL (9.8-20.1); Calc. Creatinine Clearance 16 mL/min (70-130); Calcium 8.4 mg/dL (7.8-10.44); Carbon Dioxide 25 mmol/L (23-31); Chloride 97 mmol/L (98-107); Estimated GFR-MDRD 8; Glucose 138 mg/dL (80-115); Potassium 4.2 mmol/L (3.5-5.1); Sodium 134 mmol/L (136-145)
[2018-06-04] MEDS ORDERED: Heparin 5,000 UNITS/ML VIAL SC SCH ×2 (09:00)
[2018-06-04] MEDS: Sevelamer Carbonate 800 MG TAB PO SCH ×2 (09:01→12:24)
[2018-06-04] MEDS: Carvedilol 3.125 MG TAB PO SCH (09:01)
--- NOTE | 2018-06-04 10:03 | PRG ---
DATE OF SERVICE: 06/04/2018 SUBJECTIVE: Ms. Stubbs is a 68-year-old white female being followed by the Renal Service for her [facility] hemodialysis. I am currently at the bedside supervising her dialysis. Please note that the patient was recently admitted due to a left intertrochanteric fracture and has undergone surgery whe re she had an intertrochanteric intramedullary nail placed. She was also hypotensive yesterday and f or that reason she has been receiving salt poor albumin. No other complaints today. She has some po stop pain. Otherwise, no chest pain or shortness of breath. OBJECTIVE: VITAL SIGNS: Blood pressure is 111/64, heart rate 94, respiratory rate 20, temperature 97.9, pulse o ximetry 95%. GENERAL: Awake, alert, comfortable, not in overt distress. SKIN: Adequate turgor. HEENT: Slightly pale conjunctivae, anicteric sclerae. NECK: No neck mass, no carotid bruits, no JVD. CHEST: No deformities. LUNGS: Clear breath sounds, no wheezing, no crackles. HEART: Normal sinus rhythm. No murmur, no gallops or rubs. ABDOMEN: Globular, soft, nontender, no masses. EXTREMITIES: Trace edema. MEDICATIONS: 06/04/2018 - Reviewed. LABORATORY DATA: 06/04/2018 - White count 7, hemoglobin 7.7. Sodium 134, potassium 4.2, chloride 97 , carbon dioxide 25, BUN 37, creatinine 5.1, calcium 8.4. ASSESSMENT AND PLAN: 1. End-stage renal disease, stable. Tolerating current hemodialysis regimen. No heparin used due t o the recent surgery. Fluid removal only as tolerated. 2. Hypertension, much improved with salt-poor albumin. 3. Anemia, continuing weekly Epogen. Recheck base met and CBC in a.m.
[2018-06-04] MEDS: Senokot S 8.6-50 MG TAB PO SCH (12:24)
[2018-06-04] MEDS: Polyethylene Glycol 3350 17 GM Packet PO SCH (12:24)
[2018-06-04] MEDS: predniSONE 5 MG TAB PO SCH (12:24)
[2018-06-04 12:35] VITALS: BP 103/62; TEMP 98
[2018-06-04] MEDS: Acetaminophen 500 MG TAB PO PRN (13:10)
[2018-06-04] MEDS ORDERED: INSULIN DEGLUDEC 15 UNIT SQ PRN (13:22)
[2018-06-04] MEDS ORDERED: INSULIN ASPART SC PRN (13:22)
[2018-06-04] MEDS ORDERED: Ondansetron ODT 4 MG TAB PO PRN (13:22)
[2018-06-04] MEDS ORDERED: Promethazine 25 MG TAB PO PRN (13:22)
[2018-06-04] MEDS ORDERED: Insulin Glargine 15 UNITS in Pre-Filled Syringe 1 EACH SC PRN (13:50)
--- NOTE | 2018-06-05 05:11 | DIS ---
DATE OF ADMISSION: 05/27/2018 DATE OF DISCHARGE: 06/04/2018 DIAGNOSES AT ADMISSION: 1. End-stage renal disease with acute volume overload and hyperkalemia. 2. Left hip fracture. PROCEDURES: 1. ORIF of the left hip. 2. Perm-A-Cath placement, the right subclavian. 3. Fistula formation on the right upper extremity. HOSPITAL COURSE: Ms. Stubbs is a 68-year-old female with ESRD. For the past history, please see the HPI. In short, she was admitted after a ground level fall at home sustaining a left hip fracture. On the day of arrival, she had missed dialysis and was noted to be hyperkalemic and in volume overloa d. Emergent dialysis was arranged through Dr. Smallwood, her dance entertainer, and at that time her fistula si te was working in the left upper extremity. On hospital day #1, she went for ORIF of the left hip wi thout complications. The patient worked with OT, PT thereafter and awaiting placement; however, her fistula was not working effectively despite a thrombectomy the day before admission to the hospital. Therefore, a Perm-A-Cath was placed, dialysis was resumed and Dr. Petersen was consulted with Vascular Surgery for fistula formation. The patient had the fistula placed on 06/02/2018. We will wait for this to mature and follow up with Dr. Smallwood. The patient's pain is under control. She has been workin g with PT, OT and she is amenable to inpatient rehabilitation, she has been tolerating a diet and fee ls like she can be discharged. On the day of discharge, her only complaint is some left hip pain jaswant t she stated she had overnight and some mild back pain. OBJECTIVE: On the date of discharge, VITAL SIGNS: Temperature is 98, blood pressure 103/62, heart rate is 85, respiratory rate 20, O2 sat is 96% on room air. GENERAL: This is a 68-year-old female, lying in bed, in no acute distress, she just returned back fr om dialysis. HEENT: Normocephalic, atraumatic. Trachea is midline. RESPIRATORY: Equal rise and fall bilaterally. Breath sounds are clear to auscultation upper and low er bilaterally. CHEST: She has a right Perm-A-Cath in place noted, she does have some bruising to the chest and she also has a left IJ in place for vascular access. CARDIOVASCULAR: Regular rate. ABDOMEN: Obese, soft, and nontender. PELVIS: She has a surgical site to the left that is clean, dry, and dressed. EXTREMITIES: Lower extremities: Moves well. Upper extremities: She has some bruising, noted a fis jennifer with a good thrill in the right upper and strong peripheral pulses. DISCHARGE INSTRUCTIONS: On the date of discharge, the patient is tolerating diet, having bowel movem ents and med rec was done. The patient is being discharged to [facility] inpatient [facility]. I have discussed with pharmacy her insulin dosage. Discharging physician, Dr. Alexey Zacarias. We saw the patient with him today. I have coordinated care with the case management to the bedside RN, the patient, pharmacy, and answered all questions. Greater than 45 minutes was taken in preparation and discharge of this patient.
[2018-06-05] MEDS ORDERED: Insulin Glargine 50 UNITS in Pre-Filled Syringe 1 EACH SC SCH (09:00)
[2018-06-05] MEDS ORDERED: INSULIN DEGLUDEC 50 UNIT SQ SCH (09:00)
[2018-06-05] MEDS ORDERED: Furosemide 80 MG TAB PO SCH (09:00)
== END 2018-06-04 15:58 | DRG 480 ==
LOC: ERS 04:46 → SURG A 12:42
PROVIDERS: ADMIT Surgery; ATTEND Surgery
PROC: 0QS704Z Reposition Left Upper Femur with Internal Fixation Device, Open Approach (ICD-10-PCS; principal; 2018-05-28)
PROC: 30233N1 Transfusion of Nonautologous Red Blood Cells into Peripheral Vein, Percutaneous Approach (ICD-10-PCS; 2018-05-29)
PROC: 05HM33Z Insertion of Infusion Device into Right Internal Jugular Vein, Percutaneous Approach (ICD-10-PCS; 2018-05-31)
PROC: B51WYZZ Fluoroscopy of Dialysis Shunt/Fistula using Other Contrast (ICD-10-PCS; 2018-05-31)
PROC: 031B0ZF Bypass Right Radial Artery to Lower Arm Vein, Open Approach (ICD-10-PCS; 2018-06-01)
DX: S72.142A Displaced intertrochanteric fracture of left femur, initial encounter for closed fracture (principal); N18.6 End stage renal disease; D62 Acute posthemorrhagic anemia; E87.1 Hypo-osmolality and hyponatremia; I13.2 Hypertensive heart and chronic kidney disease with heart failure and with stage 5 chronic kidney disease, or end stage renal disease; E87.5 Hyperkalemia; Z99.2 Dependence on renal dialysis; M06.9 Rheumatoid arthritis, unspecified; I50.9 Heart failure, unspecified; E11.22 Type 2 diabetes mellitus with diabetic chronic kidney disease; M19.90 Unspecified osteoarthritis, unspecified site; I77.6 Arteritis, unspecified; J45.909 Unspecified asthma, uncomplicated; H54.7 Unspecified visual loss; W19.XXXA Unspecified fall, initial encounter; Z79.899 Other long term (current) drug therapy; Z79.4 Long term (current) use of insulin; Z79.52 Long term (current) use of systemic steroids; Z87.891 Personal history of nicotine dependence; D63.1 Anemia in chronic kidney disease; I95.9 Hypotension, unspecified; E83.39 Other disorders of phosphorus metabolism; E11.65 Type 2 diabetes mellitus with hyperglycemia; Z88.8 Allergy status to other drugs, medicaments and biological substances; Z88.0 Allergy status to penicillin; Z88.2 Allergy status to sulfonamides; Z91.018 Allergy to other foods; E11.21 Type 2 diabetes mellitus with diabetic nephropathy
CPT/HCPCS: 20501; 36415; 36416; 36430; 36556; 36569; 36901; 71045; 76001; 76080; 76942; 80048; 80053; 82010; 82330; 82803; 83735; 84100; 85025; 86850; 86900; 86901; 87340; 90935; 93005; 93010; 93970; 94640; 96374; 96376; A4216; C1713; C1752; C1769; G0257; G0365; G8978-GP-CM; G8979-GP-CL; G8987-GO-CL; G8988-GO-CI; J0131; J0670; J1170; J1200; J1644; J1720; J1815; J1956; J2001; J2250; J2270; J2405; J2704; J2720; J2997; J3010; J3490; J7611; J7620; P9016; P9045; P9047; Q4081; S0028

== ENCOUNTER 2018-06-19 10:22 | Inpatient (IN) | payer MEDICARE, OTHER ==
--- NOTE | 2018-06-19 11:33 | RAD ---
CHEST 1 VIEW: COMPARISON: 06/10/2018. HISTORY: Dialysis patient. Shortness of breath. FINDINGS: Right-sided HemoSplit dialysis catheter is unchanged in position. There is atherosclerosis of the ao rta. Enlarged cardiac silhouette. The pulmonary vessels are prominent. Patchy interstitial and yolette eolar infiltrates. There is no pneumothorax or osseous abnormalities. IMPRESSION: 1. Atherosclerosis. 2. Volume overload. POS: JEWELL
[2018-06-19 13:15] LABS: Hemoglobin 9.9 g/dL (12.0-16.0); Mean Corpuscular HGB CONC 31.5 g/dL (32.0-36.0); Mean Corpuscular Hemoglobin 33.9 pg (27.0-31.0); Mean Platelet Volume 10.9 fL (7.4-10.4); Platelet Count 87 thou/uL (130-400); RBC Distribution Width 18.5 % (11.5-14.5); Red Blood Cell (RBC) Count 2.93 mill/uL (4.20-5.40)
[2018-06-19 13:28] LABS: Anisocytosis MODERATE=16-30 cells (100X) (0-5/hpf); Band 4 % (5-11); Burr Cells SLIGHT = 2-5 cells (100X) (0-1/hpf); Lymphocytes 3 % (21-51); MDiff Complete? YES; Microcytosis SLIGHT = 6-15 cells (100X) (0-5/hpf); Monocytes 8 % (0-10); Neutrophil 85 % (42-75); Ovalocytes SLIGHT = 2-5 cells (100X) (0-1/hpf); PLT Morphology Comment Appears Decreased; Poikilocytosis SLIGHT = 6-15 cells (100X) (0-5/hpf); Polychromasia MODERATE = 3-4 cells (100X) (0-2/hpf); Schistocytes SLIGHT = 2-5 cells (100X) (0-1/hpf); White Blood Cell (WBC) Count 17.4 thou/uL (4.8-10.8)
[2018-06-19 13:31] LABS: ALT (SGPT) 501 U/L (8-55); AST (SGOT) 1111 U/L (5-34); Albumin 3.1 g/dL (3.4-4.8); Alkaline Phosphatase 998 U/L (40-150); Anion Gap 29 mmol/L (10-20); BUN (Urea Nitrogen) 80 mg/dL (9.8-20.1); Bilirubin, Total 4.1 mg/dL (0.2-1.2); Calc. Creatinine Clearance 0 mL/min (70-130); Calcium 7.8 mg/dL (7.8-10.44); Carbon Dioxide 14 mmol/L (23-31); Chloride 90 mmol/L (98-107); Estimated GFR-MDRD 6; Globulin 2.9 g/dL (2.4-3.5); Glucose 85 mg/dL (80-115); Sodium 126 mmol/L (136-145)
[2018-06-19 13:38] LABS: Potassium 6.6 mmol/L (3.5-5.1); Troponin I 44.111 ng/mL (< 0.028)
[2018-06-19] MEDS ORDERED: Calcium Chloride 1 GM/10 ML Abboject SYRINGE ONE (13:50)
[2018-06-19] MEDS ORDERED: Sodium Bicarb 50 MEQ/50 ML Abboject 8.4% SYRINGE ONE (13:50)
[2018-06-19] MEDS ORDERED: Insulin Regular 300 UNITS/3 ML VIAL ONE (13:50)
[2018-06-19] MEDS ORDERED: Dextrose 50% Abboject 50 ML SYRINGE ONE (13:50)
[2018-06-19 14:40] LABS: Base Excess-Venous -7.2 mmol/L (0 (+/- 2.5)); Bicarbonate (HCO3v) 18.9 mmol/L (1.0-85.0); CO2 Tension (PvCO2) 39.4 mmHg (41.0-51.0); Hemoglobin - Calc 10.4 g/dL (12.0-18.0); Lactate 5.25 mmol/L (0.50-2.20); O2 Tension (PvO2) 24.4 mmHg (35.0-45.0); Potassium 5.7 mmol/L (3.4-4.7); T. Carbon Dioxide 20.1 mmol/L (1.0-85.0); pH (Venous) 7.289 (7.35-7.45); vO2 Saturation-calc 37.3 % (94-98)
[2018-06-19] MEDS ORDERED: Iopamidol 370 76% 100 ML VIAL ONE (14:59)
[2018-06-19] MEDS ORDERED: Iopamidol 370 76% 50 ML VIAL FS ONE (14:59)
[2018-06-19] MEDS ORDERED: Sodium Bicarbonate 150 MEQ in Dextrose 5% in Water 1,000 ML IV SCH (15:00)
[2018-06-19] MEDS ORDERED: Ondansetron PF 4 MG/2 ML Vial IVP PRN (15:49)
[2018-06-19] MEDS ORDERED: Metoprolol Tartrate 5 MG/5 ML VIAL ONE (15:50)
[2018-06-19] MEDS ORDERED: Norepinephrine 8 MG/0.9% NS 250 ML ONE (16:05)
[2018-06-19] MEDS ORDERED: Norepinephrine 8 MG/0.9% NS 250 ML IVPB SCH ×2 (16:15)
[2018-06-19] MEDS ORDERED: diphenhydrAMINE 50 MG/ML VIAL ONE (16:30)
[2018-06-19] MEDS ORDERED: Heparin 10,000 UNITS/1 ML VIAL ONE (16:40)
[2018-06-19] MEDS ORDERED: Ondansetron PF 4 MG/2 ML Vial ONE (16:40)
[2018-06-19] MEDS ORDERED: Nitroglycerin 100MG/250ML BOT 0 ML ONE (16:41)
[2018-06-19] MEDS ORDERED: Lidocaine 1% (PF) 30 ML VIAL ONE (16:41)
[2018-06-19] MEDS ORDERED: Fentanyl 100 MCG/2 ML VIAL ONE (17:35)
[2018-06-19] MEDS ORDERED: Clopidogrel Bisulfate 300 MG TAB ONE (18:12)
[2018-06-19] MEDS ORDERED: Zolpidem Tartrate 5 MG TAB PO PRN (19:08)
[2018-06-19 19:48] LABS: Critical Call Chem Troponin I RESULT DECREASING; Troponin I 43.225 ng/mL (< 0.028)
[2018-06-19 19:50] LABS: Lactic Acid 6.4 mmol/L (0.5-2.2)
--- NOTE | 2018-06-19 20:06 | HP ---
PRIMARY CARE PHYSICIAN: Out of town in [place]. CHIEF COMPLAINT: Nausea, vomiting, and not feeling well. HISTORY OF PRESENT ILLNESS: Ms. Stubbs is a very pleasant 68-year-old female that has a history of hypertension as well as diabetes mellitus and end-stage renal disease, on hemodialysis. She was recently hospitalized at our facility about a month ago after she suffered a fall from a standing position and developed a left hip fracture. She had repair of the hip fracture and had been transitioned to inpatient rehabilitation. According to the daughter who is at the bedside says that she has been having nausea and vomiting off and on almost since being admitted to rehabilitation and she also seemed to be sweaty off and on and had a poor appetite. The patient also admits to having a dull pain in the center of her chest for the last couple of days, but this has since resolved. Then, on today she began having nausea and vomiting and had vomited several times while in rehabilitation, and for this reason, she was sent over to the ER for evaluation. In the ER, she was found to have an elevated white blood cell count. Her potassium was also elevated at 6.6. Troponin was elevated at 44 and her blood pressure was marginal. While in the ER, the patient developed a wide complex tachycardia and required a synchronized cardioversion twice due to marginal blood pressure at the time and she is being admitted to the ICU for further evaluation and treatment. In the ER, she has received calcium chloride, glucose, insulin and Kayexalate, and Cardiology as well as Nephrology had been consulted. Other than feeling extremely tired and "hurting all over" the patient has no other specific complaints. REVIEW OF SYSTEMS: All systems were reviewed and are negative except for that mentioned in the history of present illness. PAST MEDICAL HISTORY: Significant for rheumatoid arthritis and history of vasculitis; end-stage renal disease, on hemodialysis; diabetes mellitus type 2; hyperlipidemia; hypertension; asthma as well as peripheral neuropathy and vasculitis. PAST SURGICAL HISTORY: She has had bilateral cataract surgeries, D&C, appendectomy, bilateral tubal ligation, and left forearm fistula placed. ALLERGIES: LIPITOR, INVOKANA, CARVEDILOL, IODINE, PENICILLIN and SULFA. SOCIAL HISTORY: She is a nonsmoker, nondrinker. She is . CODE STATUS: FULL CODE. FAMILY HISTORY: Significant for diabetes in both of her parents. MEDICATIONS: We will need to reconcile her home medications. PHYSICAL EXAMINATION: GENERAL: She is alert and oriented. She appears to be in some distress, mainly due to just generalized discomfort. She is well-developed and well- nourished. VITAL SIGNS: Her blood pressure was approximately 96/46, heart rate has varied initially was in the 70s, but now it is approximately 150, respiratory rate is 20 and she is afebrile with a temperature of 97.6. HEENT: Pupils are equal, round, and reactive. Extraocular muscles are intact. Her sclerae are anicteric. There was no evidence of any jugular venous distention. Throat: There was no erythema, no exudates. NECK: No adenopathy, no bruits, no jugular venous distention. LUNGS: Clear to auscultation. There was some increase coarse breath sounds at the bases, no rhonchi, no rales. CARDIOVASCULAR: Heart rate was tachycardic, it was regular with a very soft 2/ 6 systolic murmur. There is no gallop. ABDOMEN: Obese, it is soft. There was some diffuse tenderness. There was no rebound, no guarding, no organomegaly. EXTREMITIES: She has got some trace nonpitting edema. There was no calf tenderness. No erythema. She has got palpable dorsalis pedis pulses. NEUROLOGICALLY: The exam is grossly nonfocal with muscle strength 5/5 in both her upper and lower extremities and the cranial nerves are intact. SKIN/INTEGUMENT: There are no skin changes. No lesions. Good capillary refill. LABORATORY AND X-RAY FINDINGS: On her EKG and this is by my reading, there is a wide complex tachycardia currently with a heart rate in the 150s. On her EKG prior, she had a sinus rhythm with an interventricular conduction delay with a heart rate was in the 70s. Other lab work, the white blood cell count 17.4, hemoglobin 9.9, hematocrit is 31.5, platelet count is 87. The sodium was 126, potassium 6.6, chloride is 90, CO2 is 14, BUN of 80, creatinine 6.8. Troponin was 44.1. Her AST 1111, ALT was 501, total bilirubin was 4.0, natriuretic peptide was 7701. ASSESSMENT AND PLAN: This is a pleasant 68-year-old female that presented to the emergency room with nausea and vomiting. On further evaluation, she was found to be hyperkalemic with an elevated troponin, also with elevated transaminases, which are suspicious for possible shock liver. She has required 2 episodes of cardioversion in the ER due to the wide complex tachycardia,. The second of which did bring her heart rate down from 165 down to about 105. 1. Non-ST elevation myocardial infarction with Cardiogenic Shock. The patient will be admitted to the ICU. Cardiology has already been consulted. This has been complicated by what appears to be a wide complex tachycardia, possibly ventricular tachycardia. She will be given aspirin. Her blood pressure is too low for nitrites. Her platelets are low and therefore, we will hold off on any anticoagulation at this time and defer this to Cardiology. We are going to order a stat echo. 2. Hyperkalemia. This is likely due to a missed dialysis. She has received calcium chloride as well as glucose and insulin in the ER and lactulose and Kayexalate. Nephrology has been consulted and Dr. Mosquera is currently putting in a temporary Trialysis catheter and her regular financial systems administrator has been called to perform emergent hemodialysis. 3. Hyponatremia. This is likely due to her renal disease. This should be able to be corrected with dialysis as well. 4. Hypertension. Currently her blood pressures on the lower side. We will hold off on her usual antihypertensives. We will also need to reconcile which she normally takes, start this as indicated and also history of rheumatoid arthritis. Again, we will need to reconcile her medications and restart as indicated. 5. End-stage renal disease. Her financial systems administrator has been consulted for emergent hemodialysis and also she will get a critical care consult due to need for ICU admission. AMBER
--- NOTE | 2018-06-19 20:46 | CON ---
DATE OF CONSULTATION: 06/19/2018 HISTORY: Ms. Stubbs is a 68-year-old white female who was recently admitted to the hospital for a left intertrochanteric fracture. She was transferred to rehab for further physical therapy. During the last few days, she was noted to be hypotensive. Due to the persistent hypotension, she was transferred to the hospital for further management. Yesterday, we attempted dialysis, but the catheter was not functional and for that reason, dialysis was delayed till this coming Thursday. This morning, she was still hypertensive. It was decided to place her at the ER. At the ER, she was noted to have a potassium of 6.6. While at the ER waiting for her room, she developed ventricular tachycardia. She underwent cardioversion and she was converted after 2 attempts. Currently, she is feeling a little better. During the course at the rehabilitation, she has denied being short of breath or having chest pain. Please note her troponin I is elevated at 44.11 with a CK-MB of 16. BNP was noted to be levated. After Kayexalate and insulin D50, her potassium has gone down to 5.7. REVIEW OF SYSTEMS: No chest pain, no shortness of breath. Positive for nausea , but no vomiting. Decreased appetite, decreased energy level. No syncopal episode, no productive cough, no fever or chills. Appetite and energy level is decreased. No hematochezia, no melena, no hematemesis. HOME MEDICATIONS: Included prednisone 10 mg daily, Protonix 40 mg daily, metoprolol tartrate 50 mg p.o. b.i.d., received 15 units subcu q.a.m., carvedilol 12.5 mg p.o. b.i.d., furosemide 80 mg daily, atorvastatin 40 mg at bedtime. PAST MEDICAL HISTORY: 1. ESRD from presumed diabetic nephropathy. 2. Hypertension. 3. Type 2 diabetes mellitus. 4. Hyperlipidemia. 5. DJD. 6. Chronic low back pain. PAST SURGICAL HISTORY: Includes the following, 1. Status post AV fistula placement. 2. Status post cuffed dialysis catheter placement. 3. Status post colonoscopy. 4. Status post appendectomy. 5. Status post femoral artery angioplasty. 6. Status post bilateral tubal ligation. FAMILY HISTORY: No family history of ESRD. SOCIAL HISTORY: The patient is and lives in [place]. 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 Education, high school, some college courses. Smoked for 5 years, one-third pack a day status post multiple blood transfusions. No IV drug abuse. Sedentary lifestyle. ALLERGIES: , IODINE, PENICILLIN, SULFA, CARVEDILOL? TRAUMA: Status post fall with left intertrochanteric fracture. IMMUNIZATIONS: Up to date. HOSPITALIZATIONS: Please see past medical history. PHYSICAL EXAMINATION: VITAL SIGNS: Blood pressure 110/70, heart rate 105. GENERAL: Awake, lethargic, not in overt distress. SKIN: Adequate turgor. HEENT: She has slightly pale conjunctivae, anicteric sclerae. NECK: No neck mass, no carotid bruits, no JVD. CHEST: No deformities. LUNGS: Decreased breath sounds. HEART: Tachycardic, no murmur, no gallops, no rubs. ABDOMEN: Globular, soft, nontender. No masses. EXTREMITIES: Trace edema. LABORATORY DATA: Of June 19, 2018, white count 17.4, hemoglobin 9.9. Sodium 126, potassium 6.6, chloride 90, carbon dioxide 14, BUN 80, creatinine 6.87, glucose 85, troponin I is 44.1, AST 1111, ALT is 501. Repeat potassium shows a value of 5.7. Chest x-ray, increased lung markings. ASSESSMENT AND PLAN: 1. Hyperkalemia - Improved potassium with conservative management - status post insulin, Kayexalate and calcium gluconate. 2. End-stage renal disease - due to the hyperkalemia and volume overload. We will do an emergency dialysis. They have consulted Dr. Mosquera for placement of femoral dialysis catheter. We will consult Surgery in the next few days for cuffed dialysis catheter placement. 3. Congestive heart failure, emergent hemodialysis. 4. Status post ventricular tach/elevated troponin I. Cardiology consult has been done with Dr. Jules. Continue supportive care. Overall, prognosis remains guarded. Patient may undergo emergent cardiac cath. [facility]
--- NOTE | 2018-06-19 20:50 | OP ---
PROCEDURE: Right femoral dialysis catheter placement. INDICATION: Symptomatic hyperkalemia. MEDICATION: 2% lidocaine. QUALITY CONTROL: Dr. Eveline Sheikh. DETAILS OF PROCEDURE: After informed consent was obtained, patient was prepped and draped in a steri le fashion. The patient's right femoral catheter was exchanged over wire with a Trialysis-dialysis c atheter. All the ports were evaluated for good flow and patient tolerated the procedure well. The l ine is ready for use to initiate emergent dialysis.
[2018-06-19] MEDS ORDERED: Atorvastatin Calcium 40 MG TAB PO SCH (21:00)
[2018-06-19] MEDS ORDERED: Famotidine/PF 20 mg/2ml Vial SLOW IVP SCH (21:00)
[2018-06-19] MEDS: Sodium Chloride 0.9% 1,000 ML IV SCH (21:37)
[2018-06-19] MEDS: Carvedilol 3.125 MG TAB PO SCH (21:41)
[2018-06-19] MEDS: diphenhydrAMINE 25 MG CAP PO PRN (21:52)
--- NOTE | 2018-06-19 21:53 | CON ---
DATE OF CONSULTATION: 06/19/2018 CARDIOLOGY CONSULTATION INDICATION FOR CONSULTATION: A 68-year-old female with what appears to be congestive heart failure acutely with elevated cardiac enzymes, most likely suffered a myocardial infarction a couple days ago. She was brought to the emergency room due to nausea and vomiting from the rehab center. She was found to be having tachycardia with a wide complex what appeared to be actually a ventricular tachycardia; however, her potassium was elevated at 6.7. She had hyperkalemia on 05/24 with potassium 7.6, at which time she also was having a wide complex rhythm, but was not tachycardic. She was shocked twice in the emergency room. She continues to revert back to the tachycardia. This may just be a bundle branch block with tachycardia, but she denies any chest pain, but at this time she did have some chest pain 2-3 days ago, most likely suffered a myocardial infarction, then unable to tell by the EKG due to the left bundle branch block. She did have a cardiac catheterization in the past which showed a 50% stenosis in the left anterior descending with diffuse disease throughout the vessel. This was in 2017 little over a year ago. She had an echocardiogram in 2016, which showed ejection fraction of 65%-70% with 1/ 3 diastolic dysfunction. Recently also she had another repeat echocardiogram, I believe at that time in 2017, which again or either by cardiac catheterization showed ejection fraction also more than 60%-65%. At this time, I asked for a repeat echocardiogram while the patient was seen in the emergency room. Ejection fraction appears to be somewhere between 20%-30%. The left ventricle is dilated. She has diastolic dysfunction and severe mitral valve regurgitation. Likely this again she has suffered a myocardial infarction. Her troponin I is actually 44. She has end-stage renal disease as well as type 2 diabetes. She has been on dialysis for 2 years. She did not have dialysis yesterday as she had problems with the shunt. She was brought to the emergency room due to nausea, vomiting, and the shunt, which was not functional, but was thought that she would need to undergo further dialysis and certainly with potassium of 6.7. They have actually been able to lower the potassium level in the emergency room with medications, but she will eventually need to undergo acute dialysis in order to maintain this potassium within a reasonable level. I have discussed with the patient and the family about proceeding with cardiac catheterization. She does have a history of IODINE allergies and I have expressed to her the severity of even taking the patient to the cardiac technical laboratory asst. She was somewhat hypotensive. Her blood pressure has been lower than 90 systolic and sometimes it is reasonable . She was with heart rates standing between 130s to 150s. We will try to give IV Lopressor to see if we can lower the heart rate and hopefully the blood pressure will stabilize. Again taking someone like this to cardiac technical laboratory asst is very risky and I have also explained this to the family that there may not be any intervention that can be possible and that she may not survive the procedure, but she is agreeable as well as the family that we will try to see if there is anything that can be salvaged. PAST MEDICAL HISTORY: Significant for end-stage renal disease, coronary artery disease. She has a history of pericardial effusion. She has diabetes and hypertension. SOCIAL HISTORY: She is . No history of alcohol or tobacco abuse. FAMILY HISTORY: Noncontributory. ALLERGIES: She is allergic to PENICILLIN, IODINE and SULFA DRUGS. REVIEW OF SYSTEMS: She recently had some constipation due to pain medications associated with her that she takes for her arthritis. Otherwise, she has been complaining of the nausea and vomiting since no other significant complaints. On review of systems, she recently fell and fractured her right hip and underwent recent surgery for repair of that has been in rehabilitation since that time. Please review her medication list as noted by the nursing staff. PHYSICAL EXAMINATION: GENERAL: Reveals an elderly, ill-appearing female. Her heart rates in the 50s and shows a wide complex tachycardia. VITAL SIGNS: Blood pressure at this time is 88/52. HEENT: Shows head to be normocephalic, atraumatic. Carotid pulses are present. I cannot hear any bruits at this time. CHEST: She has decreased breath sounds, but there did not hear rales, rhonchi or wheezing. CARDIOVASCULAR: Reveals tachycardia. I did not hear any significant murmurs, heaves, thrills, bruits, or rubs at this time. ABDOMEN: Obese. Positive bowel sounds are present. EXTREMITIES: Show 2+ lower extremity edema. Pedal pulses are present. NEUROLOGIC: Patient still remains intact mentally. She understands what is going and grave situation of what may occur. LABORATORY DATA: Shows sodium of 126, potassium was 6.6, creatinine 6.87, BUN of 80, MB is 16. Troponin I is 44.1, hemoglobin is 9.9, platelet count was 87, 000. Her AST is also elevated at 1111 with an ALT of 501. Her BNP is over 7, 000. We will need to proceed with cardiac catheterization quickly and then proceed with dialysis after the cardiac catheterization if at all possible. The family and the patient do understand the severity of taking the patient to the technical laboratory asst and the possibility that she may not survive even the cardiac catheterization should she have a cardiac arrest. The patient does not wish wishes to be DNR and will do rediscuss this, I would prefer not to have a DNR status during the cardiac catheterization. IMPRESSION: 1. Recent myocardial infarction, most likely large anterior myocardial infarction with wide complex tachycardia with elevated cardiac enzymes. I have discussed going to the cardiac technical laboratory asst with the patient to see whether or not anything could be salvage in this patient and I have explained the severity of the situation to the patient. She understands. I have explained the risks to include bleeding, infection, possibility of further myocardial infarction, CVA, or even . She understands as well as the family and they would like to proceed. 2. Hyperkalemia. Hopefully this will be kept and checked until the patient can undergo dialysis. 3. Diabetes, which is relatively reasonable control at this time. 4. Hyperkalemia. 5. Hyponatremia, most likely due to volume overload and delusions since she did not have dialysis yesterday. 6. Most likely acute congestive heart failure, also with acute hepatic injury most likely due to decreased perfusion. Further care of the patient will be determined after we review the results of the cardiac catheterization and then we will need to be medically managed. She will need to undergo dialysis as soon as possible. AMBER
[2018-06-19] MEDS ORDERED: Aztreonam 1 GM in Sodium Chloride 0.9% 100 ML IVPB SCH (22:00)
[2018-06-19] MEDS ORDERED: Aztreonam 2 GM in Sodium Chloride 0.9% 100 ML IVPB SCH (22:00)
[2018-06-19 22:18] LABS: Troponin I Greater than 45.000 ng/mL (< 0.028)
[2018-06-19 22:52] VITALS: BMI 40.3
[2018-06-19] MEDS ORDERED: HOLD VANCOMYCIN FOR LEVEL >20 FS SCH (23:45)
[2018-06-20 02:35] LABS: Band 2 % (5-11); Hemoglobin 9.4 g/dL (12.0-16.0); Lymphocytes 8 % (21-51); MDiff Complete? YES; Mean Corpuscular HGB CONC 31.3 g/dL (32.0-36.0); Mean Corpuscular Hemoglobin 33.3 pg (27.0-31.0); Mean Platelet Volume 10.8 fL (7.4-10.4); Monocytes 6 % (0-10); Neutrophil 84 % (42-75); Nucleated RBC 2 % (0); PLT Morphology Comment Appears Decreased; Platelet Count 79 thou/uL (130-400); RBC Distribution Width 18.8 % (11.5-14.5); Red Blood Cell (RBC) Count 2.83 mill/uL (4.20-5.40); White Blood Cell (WBC) Count 11.8 thou/uL (4.8-10.8)
[2018-06-20 02:49] LABS: ALT (SGPT) 632 U/L (8-55); AST (SGOT) 1381 U/L (5-34); Alkaline Phosphatase 945 U/L (40-150); Anion Gap 20 mmol/L (10-20); BUN (Urea Nitrogen) 35 mg/dL (9.8-20.1); Bilirubin, Direct 3.7 mg/dL (0.1-0.3); Bilirubin, Total 4.7 mg/dL (0.2-1.2); Calc. Creatinine Clearance 22 mL/min (70-130); Calcium 7.9 mg/dL (7.8-10.44); Carbon Dioxide 22 mmol/L (23-31); Chloride 100 mmol/L (98-107); Estimated GFR-MDRD 12; Globulin 2.7 g/dL (2.4-3.5); Glucose 92 mg/dL (80-115); Potassium 4.3 mmol/L (3.5-5.1); Protein, Total 5.7 g/dL (6.0-8.3); Sodium 138 mmol/L (136-145)
[2018-06-20] MEDS: diphenhydrAMINE 25 MG CAP PO PRN (03:33)
[2018-06-20] MEDS: Sodium Chloride 0.9% 1,000 ML IV SCH (06:11)
[2018-06-20] MEDS ORDERED: Lisinopril 2.5 MG TAB PO SCH (09:00)
[2018-06-20] MEDS ORDERED: Aspirin 325 MG TAB PO SCH (09:00)
[2018-06-20] MEDS ORDERED: Clopidogrel Bisulfate 75 MG TAB PO SCH (09:00)
[2018-06-20] MEDS ORDERED: Vancomycin HCl 500 MG in Sodium Chloride 0.9% 100 ML IVPB SCH (09:00)
[2018-06-20] MEDS ORDERED: Vancomycin HCl 750 MG in Sodium Chloride 0.9% 250 ML 250 ML IVPB SCH (09:00)
[2018-06-20] MEDS ORDERED: Vancomycin HCl 1.25 GM in Sodium Chloride 0.9% 250 ML 250 ML IVPB SCH (09:00)
[2018-06-20] MEDS ORDERED: Epoetin (ESRD) 20,000 UNITS/ML SC SCH (09:45)
[2018-06-20 10:10] LABS: Vancomycin, Random 8.2 ug/mL (See Comment)
--- NOTE | 2018-06-20 10:20 | PRG ---
DATE OF SERVICE: 06/20/2018 SERVICE: Renal Medicine. SUBJECTIVE: Ms. Stubbs is a 68-year-old white female followed by the Renal Service for her maintenan ce hemodialysis. She was transferred from the rehab due to hypotension. She was also found to be hy perkalemic. Her cuffed hemodialysis catheter was not functioning and a consultation with Dr. Gigi busby was done. A temporary femoral dialysis catheter was placed. She underwent hemodialysis last nig ht. During the initial evaluation, the patient was noted to have developed cardiac arrhythmia/V-tach - underwent cardioversion. In addition, she underwent emergent cardiac catheterization due to the s ignificantly elevated troponin I. A coronary artery stent placement, angioplasty was done. This mor melba, she is feeling better. Blood pressure is much improved. The patient voices no new complaints, except for diffuse myalgia, no chest pain or shortness of breath. PHYSICAL EXAMINATION: VITAL SIGNS: Blood pressure is 111/58, heart rate 93, respiratory rate 11, O2 sat 92%. GENERAL: Noted to be awake, alert, comfortable, not in overt distress. SKIN: Adequate turgor. HEENT: She has slightly pale conjunctivae, anicteric sclerae. NECK: No neck mass, no carotid bruits, no JVD. CHEST: No deformities. LUNGS: Clear breath sounds. No wheezing, no crackles. HEART: Normal sinus rhythm. No murmur, no gallops or rubs. ABDOMEN: Globular, soft, nontender, no masses. EXTREMITIES: Positive for edema. MEDICATIONS: Of 06/20/2018 was reviewed. LABORATORY DATA: Of 06/20/2018, white count 11.8, hemoglobin 9.4, hematocrit 30.1. Sodium 138, pota ssium 4.3, chloride 100, carbon dioxide 22, BUN 35, creatinine 3.66, AST 1381, ALT 632, albumin 3.0, troponin I greater than 45. BNP 7701. ASSESSMENT AND PLAN: 1. End-stage renal disease - the patient received emergent hemodialysis yesterday. Fluid removal wa s done. Currently, the patient is much improved. 2. Hyperkalemia, resolved with hemodialysis. 3. Acute myocardial infarction - the patient is status post cardiac catheterization with coronary ar shan stent placement. Currently, hemodynamically stable. 4. Anemia. Continue current Epogen regimen with this patient at 7500 units subcutaneously every wee k. 5. Congestive heart failure, clinically improved with dialysis. Overall, prognosis remains guarded.
--- NOTE | 2018-06-20 10:31 | PDOC.PN ---
- Subjective Encounter Start Date: 06/20/18 Encounter Start Time: 10:29 Ms. Stubbs was seen today in follow-up of NSTEMI, and Ventricular arrhythmia. She is s/p PCI and STENT placement. She says she feels better today, just a bit weak. She denies any nausea or vomting, and denies chest pain or dyspnea. - Objective Resuscitation Status: Resuscitation Status FULL:Full Resuscitation MAR Reviewed: Yes Vital Signs & Weight: Vital Signs (12 hours) Temp Pulse Pulse Ox 06/20/18 08:00 97.8 F 98 06/20/18 07:00 97.8 F 06/20/18 04:00 97.8 F 98 06/20/18 03:00 98 06/20/18 00:00 98.6 F Weight Weight 206 lb 5.643 oz Most Recent Monitor Data Heart Rate from ECG 94 NIBP 94/57 NIBP BP-Mean 69 Respiration from ECG 13 SpO2 98 I&O: 06/19/18 06/20/18 06/21/18 06:59 06:59 06:59 Intake Total 550 0 Output Total 0 0 Balance 550 0 Result Diagrams: 06/20/18 02:09 06/20/18 02:09 Phys Exam - Physical Examination HEENT: PERRLA, sclera anicteric Respiratory: no wheezing, no rales, no rhonchi, clear to auscultation bilateral Cardiovascular: RRR, no significant murmur, no rub no gallop Gastrointestinal: soft, non-tender, no distention, positive bowel sounds Musculoskeletal: pulses present, edema present 1+ pitting edema of the lower extremities Neurological: non-focal, moves all 4 limbs Dx/Plan (1) Non-ST elevation myocardial infarction (NSTEMI) with complication Code(s): ROV1887 - Status: Acute (2) Ventricular arrhythmia Code(s): I49.9 - CARDIAC ARRHYTHMIA, UNSPECIFIED Status: Acute (3) Hyperkalemia Code(s): E87.5 - HYPERKALEMIA Status: Acute (4) Acute systolic heart failure Code(s): I50.21 - ACUTE SYSTOLIC (CONGESTIVE) HEART FAILURE Status: Acute (5) ESRD (end stage renal disease) on dialysis Code(s): N18.6 - END STAGE RENAL DISEASE; Z99.2 - DEPENDENCE ON RENAL DIALYSIS Status: Chronic Comment: HD per Renal service (6) H/O rheumatoid arthritis Code(s): Z87.39 - PERSONAL HISTORY OF DISEASES OF THE MS SYS AND CONN TISS Status: Chronic (7) Diabetes mellitus type 2 in obese Code(s): E11.69 - TYPE 2 DIABETES MELLITUS WITH OTHER SPECIFIED COMPLICATION; E66.9 - OBESITY, UNSPECIFIED Status: Acute - Plan * NSTEMI with cardiogenic shock- She is s/p PCI, and her blood pressure has improved. She is off Levophed * Echo results are noted, she has new Systolic heart failure with an EF of 15-20 %. She has been started on Lisinopril * Hyperkalemia- she was emergently dialyzed last night- will repeat the potassium level today * Ventricular Arrhythmia- resolved- likely from CO and Hyperkalemia * ESRD- as per Nephrology * Recent Left Hip Fracture- re-re-start PT/OT when clinically stable * DM- blood glucose is stable, continue SSI. * Elevated Lactic acid- I suspect due to hypoperfusion from Cardiogenic shock- I doubt infection- blood cultures have been ordered, as well as a Procalcitonin - if these do not favor infection- will discontinue antibiotics
[2018-06-20] MEDS: Carvedilol 3.125 MG TAB PO SCH (10:33)
[2018-06-20] MEDS ORDERED: Vancomycin HCl 1 GM in Premix Bag 1 BAG IVPB SCH (11:00)
[2018-06-20] MEDS ORDERED: Sodium Bicarb 50 MEQ/50 ML Abboject 8.4% SYRINGE ONE (11:11)
[2018-06-20] MEDS ORDERED: EPINEPHrine 1 MG/10 ML Abboject SYRINGE ONE (11:11)
[2018-06-20] MEDS ORDERED: Magnesium 5 GM/10 ML Abboject SYRINGE ONE (11:11)
[2018-06-20] MEDS: Vancomycin HCl 1 GM in Premix Bag 1 BAG IVPB SCH ×2 (11:16→11:17)
[2018-06-20 11:45] LABS: ALT (SGPT) 606 U/L (8-55); AST (SGOT) 1250 U/L (5-34); Alkaline Phosphatase 934 U/L (40-150); Anion Gap 21 mmol/L (10-20); BUN (Urea Nitrogen) 41 mg/dL (9.8-20.1); Bilirubin, Total 4.8 mg/dL (0.2-1.2); Calc. Creatinine Clearance 19 mL/min (70-130); Calcium 7.8 mg/dL (7.8-10.44); Carbon Dioxide 21 mmol/L (23-31); Chloride 98 mmol/L (98-107); Estimated GFR-MDRD 10; Globulin 2.6 g/dL (2.4-3.5); Glucose 89 mg/dL (80-115); Potassium 4.4 mmol/L (3.5-5.1); Protein, Total 5.6 g/dL (6.0-8.3); Sodium 136 mmol/L (136-145)
[2018-06-20 12:12] LABS: Troponin I 58.991 ng/mL (< 0.028)
[2018-06-20 12:27] VITALS: BP 96/47; TEMP 97.4
[2018-06-20] MEDS ORDERED: Midazolam HCl 2 mg/2 ml Vial ONE (14:16)
--- NOTE | 2018-06-20 14:45 | PDOC.EVN ---
Event Note - Event Note Event Note: Attended mariely toscano called for respiratory failure. Pt admitted for massive AL. Upon arrival to room pt being bag masked to support respirations. While in mariely toscano pt lost pulse and CPR was initiated and epi given. Pt later developed pulseless vtach and was given 200J for cardioversion. Compressions subsequently resumed. Attempted intubation failed as pt was biting ET tube. BVM was continued. Pulse was regained and pt began moving and was breathing spontaneously. Pt eventually converted back into pulseless vtach and cpr was again initiated, she was again shocked for the pulseless vtach. Pt continued to be unresponsive and pulseless vtach remained on monitor she was subsequently shocked 2 more times @ 200J each. On the last shock delivered pt regained consciousness and pulse was regained. She subsequently asked us to stop CPR and resuscitation, as such no other attempt was made to establish an airway or cont resuscitation. Per her coagulation operator at bedside there had been recent discussions regarding code status and bleak outlook with family; however, formal DNR was not completed and pt was full code in system. Pts family arrived at bedside as pt was speaking; however breathing was agonal and BP was trending down. Family and pt desired no other intervention. I left the room and pt had agonal breathing and had gone back into vtach, family was by pts side and house teacher aide clerical there for spiritual and emotional support. Epi given X2 1 amp bicab 200J X 4 Lung exam: pt had good air entry and equal breath sounds bilaterally
--- NOTE | 2018-06-20 22:10 | DIS ---
SUMMARY DATE OF ADMISSION: 06/19/2018 DATE OF : 06/20/2018 DIAGNOSES: 1. Acute anterior myocardial infarction. 2. Cardiogenic shock. 3. Acute systolic heart failure. 4. Diabetes mellitus, type 2. 5. End-stage renal disease on hemodialysis. 6. Dyslipidemia. 7. Hypertension. 8. Rheumatoid arthritis. 9. Peripheral neuropathy. 10. Vasculitis. PROCEDURES DONE DURING ADMISSION: The patient had an emergent placement of a [employer] dialysis cath eter. The patient had an urgent cardiac catheterization done, which there was found to be severe lef t coronary artery disease with the LAD being approximately 100% stenosed extending into the left circ umflex and OM1. She had the placement of three bare metal stents. Also, during the procedure, it wa s noted that she had significant anterior wall motion akinesis. The patient had an echocardiogram de monstrating an ejection fraction visualize at around 15%. The left atrium was mildly dilated left ve ntricle was dilated and there was anterior, lateral, and septal akinesis. CODE STATUS: DNR at the time of . HOSPITAL COURSE: Ms. Stubbs is a 68-year-old female, who [facility], after she had several episodes of nausea and vomiting. She had been in the rehab facil [facility] for approximately 3 months after having a repair of a left hip fracture. When she was evaluated in the ER in transfer from the rehabilitation facility, she was found to be hyperkalemic and her trop onins are elevated at greater than 40 and she was in a wide complex rhythm. During her stay in the e mergency room, she developed a wide complex tachycardia, which was felt to be a ventricular tachycard ia. She required a synchronized cardioversion twice in the ER. This was prior to the home therapy teacher demi colvin able to see her. It is also noted that the patient did have some episodes of chest pain 2 days prior to being admitted to the facility. Discussions were made with the family with regards to how t o proceed given the elevated troponins and the ventricular tachycardia. The decision was made to go to cardiac catheterization despite there being some evidence that she likely may have infarcted 2 day s prior. During the procedure, she was found to have significant 100% stenosis of the left anterior descending artery extending into the left circumflex. Dr. Jules was able to place three bare metal st ents to help open the artery. However, it was noted that she had significant left ventricular dysfun ction during the procedure. Post-procedure, she was dialyzed. Note that the patient had correction of the hyperkalemia in the emergency room with calcium chloride, glucose, insulin, and Kayexalate. P ost-dialysis, she was in the ICU and was a bit drowsy during the morning, but then later during the a fternoon, the patient developed another wide complex tachycardia and a code was called and she underw ent the standard ACLS protocol and required several electrical defibrillation due to ventricular tach ycardia. There was the spontaneous return of circulation and the patient actually was awake at this time during the return of spontaneous circulation, awake enough to be lucid and speak to us. She cri ed out that this was hurting and she did not want any further resuscitation. By this time, the junior chamberlain had made it to the bedside and she was able to say her goodbyes to her and son. While she was talking with her and son, she developed a ventricular fibrillation and shortly thereafter . No further CPR was performed as the patient had made it clear that she did not want any fu rther shocks or chest compressions and the patient at around 1435 hours due to complications of a large anterior PA. Please note, it is unable to determine whether this was a ST segment elevate d PA or a NSTEMI due to the late occurrence of discovery of the PA. Therefore, it is an acute anteri or PA as best can be described.
--- NOTE | 2018-06-24 06:06 | EKG ---
Test Reason : ROUTINE Blood Pressure : / mmHG Vent. Rate : 092 BPM Atrial Rate : 092 BPM P-R Int : 246 ms QRS Dur : 136 ms QT Int : 382 ms P-R-T Axes : 075 -74 103 degrees QTc Int : 472 ms Sinus rhythm with 1st degree A-V block Left axis deviation Non-specific intra-ventricular conduction block Inferior infarct (cited on or before 19-JUN-2018) Anterolateral infarct , age undetermined Abnormal ECG When compared with ECG of 27-MAY-2018 13:13, LA interval has increased Questionable change in QRS duration Anterior infarct is now Present Anterolateral infarct is now Present Confirmed by SHANNAN SAHU ([id number]) on 06/24/2018 6:06:21 AM Referred By: DENNIS Confirmed By:SHANNAN SAHU
--- NOTE | 2018-06-24 06:08 | EKG ---
Test Reason : TIMED Blood Pressure : / mmHG Vent. Rate : 095 BPM Atrial Rate : 095 BPM P-R Int : 222 ms QRS Dur : 110 ms QT Int : 376 ms P-R-T Axes : 070 -81 087 degrees QTc Int : 472 ms Sinus rhythm with 1st degree A-V block Possible Left atrial enlargement Left axis deviation Inferior-posterior infarct (cited on or before 19-JUN-2018) Anterolateral infarct (cited on or before 19-JUN-2018) Abnormal ECG When compared with ECG of 19-JUN-2018 19:20, (Unconfirmed) QRS duration has decreased Confirmed by SHANNAN SAHU ([id number]) on 06/24/2018 6:08:29 AM Referred By: CORNELIO Confirmed By:SHANNAN SAHU
--- NOTE | 2018-06-24 06:10 | EKG ---
Test Reason : Blood Pressure : / mmHG Vent. Rate : 072 BPM Atrial Rate : 072 BPM P-R Int : 216 ms QRS Dur : 116 ms QT Int : 454 ms P-R-T Axes : 068 -82 096 degrees QTc Int : 497 ms Sinus rhythm with 1st degree A-V block with frequent Premature ventricular complexes in a pattern of bigeminy Left axis deviation RSR' or QR pattern in V1 suggests right ventricular conduction delay Inferior infarct , age undetermined Anterolateral infarct , age undetermined Abnormal ECG When compared with ECG of 10-FEB-1997 12:58, Significant changes have occurred Confirmed by SHANNAN SAHU ([id number]) on 06/24/2018 6:09:33 AM Referred By: Confirmed By:SHANNAN SAHU
--- NOTE | 2018-06-26 12:23 | EKG ---
Test Reason : Blood Pressure : / mmHG Vent. Rate : 148 BPM Atrial Rate : 110 BPM P-R Int : 000 ms QRS Dur : 142 ms QT Int : 400 ms P-R-T Axes : 000 -80 104 degrees QTc Int : 628 ms Wide QRS tachycardia Left axis deviation Non-specific intra-ventricular conduction block Lateral infarct , age undetermined Inferior infarct , age undetermined Anterior injury pattern ACUTE W[place] / STEMI Abnormal ECG Confirmed by JIMENA MCQUEEN, RONALDO ([id number]), business editor CIRA BARRIENTOS ([id number]) on 06/26/2018 12:23:37 PM Referred By: Confirmed By:RONALDO HESS MD
--- NOTE | 2018-06-26 12:23 | EKG ---
Test Reason : Blood Pressure : / mmHG Vent. Rate : 101 BPM Atrial Rate : 101 BPM P-R Int : 228 ms QRS Dur : 152 ms QT Int : 340 ms P-R-T Axes : 033 -68 111 degrees QTc Int : 440 ms Sinus tachycardia with 1st degree A-V block Possible Left atrial enlargement Left axis deviation Non-specific intra-ventricular conduction block T wave abnormality, consider anterior ischemia Abnormal ECG Similar to previous from 05/27/2018 Confirmed by JIMENA MCQUEEN, RONALDO ([id number]), index editor CIRA BARRIENTOS ([id number]) on 06/26/2018 12:23:20 PM Referred By: Confirmed By:RONALDO HESS MD
== END 2018-06-20 14:35 | disposition expired | DRG 248 ==
LOC: ERS 10:22 → CCL 17:00 → CCU 18:44
PROVIDERS: ADMIT Internal Medicine; ATTEND Internal Medicine
PROC: 06HM33Z Insertion of Infusion Device into Right Femoral Vein, Percutaneous Approach (ICD-10-PCS; principal; 2018-06-19)
PROC: 5A1D70Z Performance of Urinary Filtration, Intermittent, Less than 6 Hours Per Day (ICD-10-PCS; 2018-06-19)
PROC: 5A12012 Performance of Cardiac Output, Single, Manual (ICD-10-PCS; 2018-06-19)
PROC: 4A023N7 Measurement of Cardiac Sampling and Pressure, Left Heart, Percutaneous Approach (ICD-10-PCS; 2018-06-19)
PROC: B2011ZZ Plain Radiography of Multiple Coronary Arteries using Low Osmolar Contrast (ICD-10-PCS; 2018-06-19)
PROC: 02703EZ Dilation of Coronary Artery, One Artery with Two Intraluminal Devices, Percutaneous Approach (ICD-10-PCS; 2018-06-19)
PROC: B2051ZZ Plain Radiography of Left Heart using Low Osmolar Contrast (ICD-10-PCS; 2018-06-19)
PROC: 5A2204Z Restoration of Cardiac Rhythm, Single (ICD-10-PCS; 2018-06-20)
DX: I21.09 ST elevation (STEMI) myocardial infarction involving other coronary artery of anterior wall (principal); N18.6 End stage renal disease; I50.21 Acute systolic (congestive) heart failure; J96.00 Acute respiratory failure, unspecified whether with hypoxia or hypercapnia; I13.2 Hypertensive heart and chronic kidney disease with heart failure and with stage 5 chronic kidney disease, or end stage renal disease; E87.1 Hypo-osmolality and hyponatremia; I47.2 Ventricular tachycardia; E11.22 Type 2 diabetes mellitus with diabetic chronic kidney disease; Z99.2 Dependence on renal dialysis; G62.9 Polyneuropathy, unspecified; M06.9 Rheumatoid arthritis, unspecified; E78.5 Hyperlipidemia, unspecified; I77.6 Arteritis, unspecified; R57.0 Cardiogenic shock; E87.5 Hyperkalemia; I95.9 Hypotension, unspecified; Z66 Do not resuscitate; I25.10 Atherosclerotic heart disease of native coronary artery without angina pectoris
CPT/HCPCS: 36415; 36556; 71045; 80053; 80076; 80202; 82330; 82553; 82803; 83605; 83880; 84145; 84484; 85025; 85347; 87040; 90935; 92941; 93005; 93010; 93306; 93458; 96365; 96367; 96375; 96376; C1725; C1752; C1769; C1876; C1887; G0257; J0171; J1200; J1642; J1644; J1815; J2001; J2250; J2270; J2405; J3010; J3370; J3475; J3490; J7050; J7070; Q4081; S0028